=== PATIENT | female | born 1990 | race Caucasian/White ===

== ENCOUNTER 2023-02-01 20:38 | Outpatient (OUT) | payer BC, SELFPAY ==
[2023-02-04 11:09] LABS: Age Gdln ACOG Testing Note (.); HPV Aptima Negative (Negative); IGP, Aptima HPV, rfx 16/18,45 Note (.)
== END 2023-02-01 20:39 | disposition home or self-care (01) ==
PROVIDERS: PCP Obstetrics & Gynecology; Visit Provider Obstetrics & Gynecology
DX: Z12.4 Encounter for screening for malignant neoplasm of cervix (principal)
CPT/HCPCS: 87624; G0145

== ENCOUNTER 2023-02-11 11:25 | Outpatient (OUT) | payer BC, SELFPAY ==
[2023-02-15 19:07] LABS: AFP Value 79.6 ng/mL (.); Gest. Age on Collection Date 19.4 weeks (.); Gestat. Age Based On Ultrasound (.); Insulin Dep Diabetes No (.); Maternal Age At EDD 32.6 yr (.); OSBR Risk 1 IN 1590 (.); Results Report (.)
== END 2023-02-11 11:26 | disposition home or self-care (01) ==
LOC: LAB 11:27
PROVIDERS: PCP Obstetrics & Gynecology; Visit Provider Obstetrics & Gynecology
DX: Z34.92 Encounter for supervision of normal pregnancy, unspecified, second trimester (principal)
CPT/HCPCS: 36415; 82105

== ENCOUNTER 2023-02-15 07:03 | Outpatient (OUT) | payer BC, SELFPAY ==
--- NOTE | 2023-02-15 07:06 | US_ITS ---
[address] [address] Patient Name: MELONY SOTO MRN: [id number] date: 1990 Sex: F Assigned Patient Location: US Current Patient Location: LAB Accession/Order Number: [id number] Exam Date: 02/15/2023 07:08 Report Date: 02/15/2023 20:42 At the request of: FANNIE SON Procedure: US OB cervical length EXAMINATION: US OB anatomy, US OB cervical length HISTORY: ANATOMY COMPARISON: No relevant comparison available. TECHNIQUE: Transabdominal sonographic examination was performed for obstetrical and evaluation. FINDINGS: Number: 1 Heart Rate: 150.8 bpm H.B. /min Amniotic Fluid Volume: Subjectively normal position: Cephalic presentation, longitudinal lie Placental Location: Anterior, grade 0. Placental edge is 7.3 cm from the internal os Cervix Length: 4.8 cm, closed Normally visualized anatomy: Cerebellum, choroid plexus, cisterna magna, lateral cerebral ventricles, orbits, midline falx, hard palate, four-chamber heart, RVOT, LVOT, stomach, kidneys, bladder, umbilical cord insertion into the abdomen, three-vessel cord, cervical spine, thoracic spine, lumbar spine, sacral spine, right upper extremity, left upper extremity, right lower extremity, left lower extremity Suboptimally visualized anatomy: None Abnormal anatomy: Limited by 2.7 mm choroid plexus cyst BIOMETRY: BPD: 4.9 cm 20 weeks 5 days , 80% HC: 18.0 cm 20 weeks 3 days, 63% AC: 15.5 cm 20 weeks 5 days, 68% FL: 3.4 cm 20 weeks 4 days, 65% EFW:367.1 grams; 13 ounces, 81% FL/AC: 21.8 FL/BPD: 69.2 HC/AC: 1.2 GESTATIONAL AGE: Age by EDC: 20 weeks 0 days DORI by EDC: 07/05/2023 Age by current US: 20 weeks 4 days DORI by current US: 07/01/2023 IMPRESSION: 2.8 mm choroid plexus cyst, nonspecific Otherwise normal anatomy scan *Reference: [employer] Practice Guideline for the performance of Obstetric Ultrasound Examinations, May 22, 2007. Electronically authenticated by: SARITA TERRAZAS Date: 02/15/2023 20:42
--- NOTE | 2023-02-15 07:06 | US_ITS ---
[address] [address] Patient Name: MELONY SOTO MRN: [id number] date: 1990 Sex: F Assigned Patient Location: US Current Patient Location: LAB Accession/Order Number: [id number] Exam Date: 02/15/2023 07:08 Report Date: 02/15/2023 20:42 At the request of: FANNIE SON Procedure: US OB anatomy EXAMINATION: US OB anatomy, US OB cervical length HISTORY: ANATOMY COMPARISON: No relevant comparison available. TECHNIQUE: Transabdominal sonographic examination was performed for obstetrical and evaluation. FINDINGS: Number: 1 Heart Rate: 150.8 bpm H.B. /min Amniotic Fluid Volume: Subjectively normal position: Cephalic presentation, longitudinal lie Placental Location: Anterior, grade 0. Placental edge is 7.3 cm from the internal os Cervix Length: 4.8 cm, closed Normally visualized anatomy: Cerebellum, choroid plexus, cisterna magna, lateral cerebral ventricles, orbits, midline falx, hard palate, four-chamber heart, RVOT, LVOT, stomach, kidneys, bladder, umbilical cord insertion into the abdomen, three-vessel cord, cervical spine, thoracic spine, lumbar spine, sacral spine, right upper extremity, left upper extremity, right lower extremity, left lower extremity Suboptimally visualized anatomy: None Abnormal anatomy: Limited by 2.7 mm choroid plexus cyst BIOMETRY: BPD: 4.9 cm 20 weeks 5 days , 80% HC: 18.0 cm 20 weeks 3 days, 63% AC: 15.5 cm 20 weeks 5 days, 68% FL: 3.4 cm 20 weeks 4 days, 65% EFW:367.1 grams; 13 ounces, 81% FL/AC: 21.8 FL/BPD: 69.2 HC/AC: 1.2 GESTATIONAL AGE: Age by EDC: 20 weeks 0 days DORI by EDC: 07/05/2023 Age by current US: 20 weeks 4 days DORI by current US: 07/01/2023 IMPRESSION: 2.8 mm choroid plexus cyst, nonspecific Otherwise normal anatomy scan *Reference: [employer] Practice Guideline for the performance of Obstetric Ultrasound Examinations, May 22, 2007. Electronically authenticated by: SARITA TERRAZAS Date: 02/15/2023 20:42
== END 2023-02-15 07:04 | disposition home or self-care (01) ==
LOC: US 07:03
PROVIDERS: PCP Obstetrics & Gynecology; Visit Provider Obstetrics & Gynecology
DX: Z34.92 Encounter for supervision of normal pregnancy, unspecified, second trimester (principal)
CPT/HCPCS: 76805; 76817

== ENCOUNTER 2023-03-19 07:26 | Outpatient (OUT) | payer BC, SELFPAY ==
[2023-03-19 08:42] LABS: Basophils Absolute Auto 0.1 10^3/uL (0.0-0.1); Basophils Percent Auto 0.6 % (0.2-2.0); Eosinophils Absolute Auto 0.2 10^3/uL (0.0-0.7); Eosinophils Percent Auto 1.8 % (0.9-7.0); Hematocrit 33.9 % (36.0-48.0); Hemoglobin 11.4 g/dL (12.0-16.0); Immature Granulocytes Abs Auto 0.22 10^3/uL (0.00-0.03); Lymphocytes Absolute Auto 1.5 10^3/uL (1.2-3.8); Lymphocytes Percent Auto 13.7 % (20.5-60.0); Mean Corpuscular HGB Conc 33.6 g/dL (29.9-35.2); Mean Corpuscular Hemoglobin 30.3 pg (26.7-34.0); Mean Corpuscular Volume 90.2 fL (81.0-99.0); Monocytes Absolute Auto 0.8 10^3/uL (0.3-0.8); Monocytes Percent Auto 6.8 % (1.7-12.0); Neutrophils Absolute Auto 8.3 10^3/uL (1.4-6.5); Neutrophils Percent Auto 75.1 % (43.0-75.0); Platelet Count 270 10^3/uL (150-450); Red Blood Count 3.76 10^6/uL (4.20-5.40); Red Cell Distribution Width 13.7 % (11.0-15.0); White Blood Count 11.1 10^3/uL (4.0-11.0)
[2023-03-19 09:24] LABS: Glucose 1 Hour 106 mg/dL
== END 2023-03-19 07:27 | disposition home or self-care (01) ==
LOC: LAB 07:26
PROVIDERS: PCP Obstetrics & Gynecology; Visit Provider Obstetrics & Gynecology
DX: Z13.1 Encounter for screening for diabetes mellitus (principal)
CPT/HCPCS: 36415; 82950; 85025

== ENCOUNTER 2023-03-22 12:51 | Outpatient (OUT) | payer BC, SELFPAY ==
--- NOTE | 2023-03-22 12:53 | US_ITS ---
[address] [address] Patient Name: MELONY SOTO MRN: [id number] date: 1990 Sex: F Assigned Patient Location: US Current Patient Location: Accession/Order Number: [id number] Exam Date: 03/22/2023 13:00 Report Date: 03/22/2023 17:49 At the request of: FANNIE SON Procedure: US OB follow up EXAMINATION: US OB follow up HISTORY: Follow-up ultrasound of anatomy Z36.2 COMPARISON: 02/15/2023 FINDINGS: Jensen intrauterine gestation position: Cephalic presentation, longitudinal lie Heart rate: 152 bpm Identified is a choroid plexus cyst, decreased in size from the prior exam now measuring 1.8 x 2.6 x 2.0 mm US/US OB follow up IMPRESSION: Decrease in size of a choroid plexus cyst Electronically authenticated by: SARITA TERRAZAS Date: 03/22/2023 17:49
== END 2023-03-22 12:52 | disposition home or self-care (01) ==
LOC: US 12:51
PROVIDERS: PCP Obstetrics & Gynecology; Visit Provider Obstetrics & Gynecology
DX: Z36.2 Encounter for other antenatal screening follow-up (principal)
CPT/HCPCS: 76816

== ENCOUNTER 2023-05-03 06:59 | Outpatient (OUT) | payer BC, SELFPAY ==
[2023-05-03 07:29] LABS: Basophils Absolute Auto 0.1 10^3/uL (0.0-0.1); Basophils Percent Auto 0.9 % (0.2-2.0); Eosinophils Absolute Auto 0.2 10^3/uL (0.0-0.7); Eosinophils Percent Auto 2.1 % (0.9-7.0); Hematocrit 34.8 % (36.0-48.0); Hemoglobin 11.6 g/dL (12.0-16.0); Immature Granulocytes Abs Auto 0.21 10^3/uL (0.00-0.03); Immature Granulocytes Pct Auto 1.8 % (0.0-0.5); Lymphocytes Absolute Auto 2.1 10^3/uL (1.2-3.8); Lymphocytes Percent Auto 18.2 % (20.5-60.0); Mean Corpuscular HGB Conc 33.3 g/dL (29.9-35.2); Mean Corpuscular Hemoglobin 29.5 pg (26.7-34.0); Mean Corpuscular Volume 88.5 fL (81.0-99.0); Monocytes Absolute Auto 0.9 10^3/uL (0.3-0.8); Platelet Count 240 10^3/uL (150-450); Red Blood Count 3.93 10^6/uL (4.20-5.40); Red Cell Distribution Width 12.3 % (11.0-15.0); White Blood Count 11.6 10^3/uL (4.0-11.0)
[2023-05-03 08:27] LABS: Estimated Average Glucose 108 mg/dL; Glycohemoglobin A1C 5.4 % (4.5-6.2)
[2023-05-03 08:40] LABS: Alanine Aminotransferase 29 U/L (14-59); Albumin Globulin Ratio 0.7; Albumin Level 2.6 g/dL (3.4-5.0); Alkaline Phosphatase 121 U/L (46-116); Anion Gap 10.6; Aspartate Amino Transferase 23 U/L (15-37); Bilirubin Total 0.3 mg/dL (0.2-1.0); Calcium 8.9 mg/dL (8.5-10.1); Carbon Dioxide 24.2 mmol/L (21.0-32.0); Chloride 103 mmol/L (98-107); Chol HDL Ratio 4.3; Cholesterol 255 mg/dL (<=200); Estimated GFR (African America >60 (>=60); Estimated GFR (Non-African Ame >60 (>=60); Glucose 75 mg/dL (74-106); HDL Cholesterol 59 mg/dL (40-60); Potassium 3.8 mmol/L (3.5-5.1); Sodium 134 mmol/L (136-145); Total Protein 6.6 g/dL (6.4-8.2); Triglycerides 151 mg/dL (<=150); VLDL CHOLESTEROL 30.2 mg/dL
== END 2023-05-03 07:00 | disposition home or self-care (01) ==
LOC: LAB 06:59
PROVIDERS: PCP Obstetrics & Gynecology; Visit Provider Obstetrics & Gynecology
DX: Z00.00 Encounter for general adult medical examination without abnormal findings (principal)
CPT/HCPCS: 36415; 80053; 80061; 83036; 84443; 85025

== ENCOUNTER 2023-05-03 09:52 | Outpatient (OUT) | payer BC, SELFPAY ==
--- NOTE | 2023-05-03 10:38 | US_ITS ---
[address] [address] Patient Name: MELONY SOTO MRN: [id number] date: 1990 Sex: F Assigned Patient Location: Current Patient Location: Accession/Order Number: [id number] Exam Date: 05/03/2023 10:40 Report Date: 05/04/2023 07:15 At the request of: FANNIE SON Procedure: US OB growth EXAMINATION: US OB growth HISTORY: size inconsistent with dates O26.849 COMPARISON: No relevant comparison available. FINDINGS: Heart Rate: 135.0 bpm Amniotic Fluid Volume: 15.8 cm Number: 1.0 Position: Breech presentation, longitudinal lie Maximum Vertical Pocket: 4.1 cm cm 4.9 cm cm 2.5 cm cm 4.2 cm cm BIOMETRY: BPD: 8.0 cm cm; 32 weeks 2 days; 84% HC: 29.6 cmcm; 32 weeks 5 days, 72% AC: 27.3 cm cm; 31 weeks 3 days, 68% FL: 5.8 cm cm; 30 weeks 3 days; 27.8 % % EFW: 1743.3 grams, 3 lbs. 13 oz., 59% FL/AC: 21.3 FL/BPD: 72.3 HC/AC: 1.1 GESTATIONAL AGE: Age by EDC: 30 weeks 5 days DORI by EDC: 07/07/2023 Age by US: 31 weeks 5 days DORI by US: 06/30/2023 US/US OB growth IMPRESSION: Normal interval growth Electronically authenticated by: SARITA TERRAZAS Date: 05/04/2023 07:15
== END 2023-05-03 09:53 | disposition home or self-care (01) ==
LOC: US 09:52
PROVIDERS: PCP Obstetrics & Gynecology; Visit Provider Obstetrics & Gynecology
DX: Z00.00 Encounter for general adult medical examination without abnormal findings (principal); O26.843 Uterine size-date discrepancy, third trimester; Z3A.30 30 weeks gestation of pregnancy; O32.1XX0 Maternal care for breech presentation, not applicable or unspecified
CPT/HCPCS: 36415; 76816; 80053; 80061; 83036; 84443; 85025

== ENCOUNTER 2023-05-31 12:40 | Outpatient (OUT) | payer BC, SELFPAY ==
[2023-05-31 12:55] VITALS: BP 133/86; PULSE 72
[2023-05-31 13:12] VITALS: BP 132/80; PULSE 75
[2023-05-31 13:25] VITALS: BP 123/77; PULSE 76
[2023-05-31 13:40] VITALS: BP 126/80; PULSE 72
[2023-05-31 13:56] VITALS: BP 151/87; PULSE 76
--- NOTE | 2023-05-31 14:11 | US_ITS ---
[address] [address] Patient Name: MELONY SOTO MRN: [id number] date: 1990 Sex: F Assigned Patient Location: [facility] Current Patient Location: Accession/Order Number: [id number] Exam Date: 05/31/2023 14:30 Report Date: 05/31/2023 18:47 At the request of: FANNIE SON Procedure: US OB BPP w non-stress EXAMINATION: US OB BPP w non-stress HISTORY: ELEVATED BP COMPARISON: No relevant comparison available. TECHNIQUE: Ultrasound biophysical profile was performed in the radiology department. FINDINGS: BREATHING MOVEMENTS: 2.0 GROSS BODY MOVEMENTS: 2.0 TONE: 2.0 QUALITATIVE AMNIOTIC FLUID VOLUME: 2.0 PRESENTATION: CEPHALIC HEART RATE: 155.2 bpm H.B./min AMNIOTIC FLUID VOLUME: 16.5 cm cm GESTATIONAL AGE: 34 weeks 5 days CONCLUSION: Total biophysical profile score: 8.0 Electronically authenticated by: SARITA TERRAZAS Date: 05/31/2023 18:47
[2023-05-31] MEDS: BETAMETHASONE ACE/BETAMETHASONE SOD PHOS 30 MG/5 ML 12 MG IM (14:39)
--- NOTE | 2023-05-31 14:47 | PC.NURSE ---
1245: CHIRAG ARORA AT PRESENT. hAD EPISDODE AT WORK OF FIREWORK TYPE SPOTSS WHEN STANDING UP AND TOOK BP AND IT WAS ELEVATED. CALLED THE DOCTOR AND HE INSTRUCTED HER TO COME TO [facility] FOR EVALUATION
== END 2023-05-31 15:05 | disposition home or self-care (01) ==
LOC: FBCO 12:41 → FBC 12:42
PROVIDERS: PCP Obstetrics & Gynecology; Visit Provider Obstetrics & Gynecology
DX: O16.3 Unspecified maternal hypertension, third trimester (principal); Z3A.34 34 weeks gestation of pregnancy
CPT/HCPCS: 76818; 96372; J0702

== ENCOUNTER 2023-06-01 15:05 | Observation (INO) | payer BC, SELFPAY ==
[2023-06-01] MEDS: BETAMETHASONE ACE/BETAMETHASONE SOD PHOS 30 MG/5 ML 12 MG IM (15:22)
[2023-06-01 15:35] VITALS: BP 124/75; PULSE 77
--- NOTE | 2023-06-01 16:01 | US_ITS ---
[address] [address] Patient Name: MELONY SOTO MRN: [id number] date: 1990 Sex: F Assigned Patient Location: [facility] Current Patient Location: [facility] Accession/Order Number: [id number] Exam Date: 06/01/2023 16:02 Report Date: 06/01/2023 18:36 At the request of: FANNIE SON Procedure: US OB BPP w non-stress EXAM: US OB BPP w non-stress, US OB umbilical artery HISTORY: decreased mvmt, high bp COMPARISON: 05/31/2023. 05/03/2023. 03/22/2023. TECHNIQUE: Biophysical profile score. FINDINGS: breathing movements: 2 Gross body movements: 2 tone: 2 Quantitative amniotic fluid volume: 2 Amniotic fluid index measures 13.6 cm. cardiac rate of 134 bpm. Doppler measurements umbilical artery: Antegrade flow within the umbilical arteries. Proximal umbilical artery PI 0.91 Proximal umbilical artery RI 0.60 Mid umbilical artery PI 0.77 Mid umbilical artery RI 0.53 Distal umbilical artery PI 0.79 Distal umbilical artery RI 0.53 Band within the anterior aspect of the amniotic fluid, raising possibility of amniotic band syndrome. US/US OB BPP w non-stress IMPRESSION: Biophysical profile score of 8/8 Antegrade flow within the umbilical arteries. Linear echogenic structure within the anterior aspect of the amniotic fluid raising possibility of amniotic band syndrome. Electronically authenticated by: MARK TOBAR Date: 06/01/2023 18:36
--- NOTE | 2023-06-01 16:01 | US_ITS ---
[address] [address] Patient Name: MELONY SOTO MRN: [id number] date: 1990 Sex: F Assigned Patient Location: [facility] Current Patient Location: [facility] Accession/Order Number: [id number] Exam Date: 06/01/2023 16:02 Report Date: 06/01/2023 18:36 At the request of: FANNIE SON Procedure: US OB umbilical artery EXAM: US OB BPP w non-stress, US OB umbilical artery HISTORY: decreased mvmt, high bp COMPARISON: 05/31/2023. 05/03/2023. 03/22/2023. TECHNIQUE: Biophysical profile score. FINDINGS: breathing movements: 2 Gross body movements: 2 tone: 2 Quantitative amniotic fluid volume: 2 Amniotic fluid index measures 13.6 cm. cardiac rate of 134 bpm. Doppler measurements umbilical artery: Antegrade flow within the umbilical arteries. Proximal umbilical artery PI 0.91 Proximal umbilical artery RI 0.60 Mid umbilical artery PI 0.77 Mid umbilical artery RI 0.53 Distal umbilical artery PI 0.79 Distal umbilical artery RI 0.53 Band within the anterior aspect of the amniotic fluid, raising possibility of amniotic band syndrome. US/US OB umbilical artery IMPRESSION: Biophysical profile score of 8/8 Antegrade flow within the umbilical arteries. Linear echogenic structure within the anterior aspect of the amniotic fluid raising possibility of amniotic band syndrome. Electronically authenticated by: MARK TOBAR Date: 06/01/2023 18:36
[2023-06-01 16:09] VITALS: BP 113/65; PULSE 85
[2023-06-01 16:32] LABS: Basophils Absolute Auto 0.1 10^3/uL (0.0-0.1); Basophils Percent Auto 0.2 % (0.2-2.0); Hematocrit 32.7 % (36.0-48.0); Hemoglobin 10.8 g/dL (12.0-16.0); Immature Granulocytes Abs Auto 0.42 10^3/uL (0.00-0.03); Immature Granulocytes Pct Auto 1.9 % (0.0-0.5); Lymphocytes Absolute Auto 2.3 10^3/uL (1.2-3.8); Lymphocytes Percent Auto 10.4 % (20.5-60.0); Mean Corpuscular Volume 87.7 fL (81.0-99.0); Mean Platelet Volume 11.6 fL (9.5-13.5); Monocytes Absolute Auto 1.7 10^3/uL (0.3-0.8); Monocytes Percent Auto 7.6 % (1.7-12.0); Neutrophils Absolute Auto 17.3 10^3/uL (1.4-6.5); Neutrophils Percent Auto 79.9 % (43.0-75.0); Platelet Count 292 10^3/uL (150-450); Red Blood Count 3.73 10^6/uL (4.20-5.40); Red Cell Distribution Width 12.6 % (11.0-15.0); White Blood Count 21.7 10^3/uL (4.0-11.0)
[2023-06-01 16:34] LABS: Alanine Aminotransferase 20 U/L (14-59); Aspartate Amino Transferase 20 U/L (15-37); Lactate Dehydrogenase 201 U/L (81-234)
[2023-06-01 16:44] LABS: Partial Thromboplastin Time 23.9 sec (22.3-36.2); Prothrombin Time 9.5 sec (9.0-11.6)
[2023-06-01 16:47] LABS: INR <0.93
[2023-06-01 17:44] VITALS: BP 130/71; PULSE 73
[2023-06-01 18:15] VITALS: BP 122/69; PULSE 78
[2023-06-01 18:44] VITALS: BP 135/79; PULSE 86
[2023-06-01 19:14] VITALS: BP 131/75; PULSE 91; RESP 18
== END 2023-06-01 19:30 | disposition home or self-care (01) ==
LOC: FBC 17:06
PROVIDERS: Admitting Provider Obstetrics & Gynecology; PCP Obstetrics & Gynecology; Visit Provider Obstetrics & Gynecology
DX: O36.8190 Decreased fetal movements, unspecified trimester, not applicable or unspecified (principal); O16.9 Unspecified maternal hypertension, unspecified trimester; Z3A.00 Weeks of gestation of pregnancy not specified
CPT/HCPCS: 36415; 59025; 76818; 76820; 83615; 84450; 84460; 84550; 85025; 85610; 85730; 96372; G0378; G0379; J0702

== ENCOUNTER 2023-06-02 10:29 | Observation (INO) | payer BC, SELFPAY ==
[2023-06-02 09:10] VITALS: BP 134/82; PULSE 89
[2023-06-02 09:27] LABS: Hematocrit 34.2 % (36.0-48.0); Hemoglobin 10.9 g/dL (12.0-16.0); Mean Corpuscular HGB Conc 31.9 g/dL (29.9-35.2); Mean Corpuscular Hemoglobin 28.6 pg (26.7-34.0); Mean Corpuscular Volume 89.8 fL (81.0-99.0); Mean Platelet Volume 11.4 fL (9.5-13.5); Platelet Count 308 10^3/uL (150-450); Red Blood Count 3.81 10^6/uL (4.20-5.40); Red Cell Distribution Width 12.6 % (11.0-15.0); White Blood Count 21.6 10^3/uL (4.0-11.0)
[2023-06-02 09:51] LABS: Band Neutrophils Absolute 0.4 10^3/uL (0.0-0.3); Lymphocytes Absolute Manual 2.59 10^3/uL (1.20-3.80); Monocytes Absolute Manual 1.08 10^3/uL (0.30-0.80); Segmented Neut Absolute Manual 17.49 10^3/uL (1.4-6.5)
[2023-06-02 10:20] VITALS: TEMP 36.8
[2023-06-02 10:21] VITALS: BP 119/81; PULSE 117
--- NOTE | 2023-06-02 10:57 | PC.NURSE ---
IV started per Guera CARSON and NS started at 125 ml/hr per infusion pump. Denies needs. States had been short of breath on occasion- thought it was from being .
[2023-06-02] MEDS: CEFAZOLIN SODIUM/DEXTROSE,ISO 2 GM/50 ML PIGGYBACK IV (11:06)
[2023-06-02] MEDS: 0.9 % SODIUM CHLORIDE 1,000 ML 125 ML IV (11:08)
[2023-06-02] MEDS: AZITHROMYCIN 500 MG in 0.9 % SODIUM CHLORIDE 250 ML 250 MG IV (12:02)
--- NOTE | 2023-06-02 14:52 | PC.NURSE ---
1330: resting quietly and denies needs
--- NOTE | 2023-06-02 16:07 | PC.NURSE ---
1545: Resting quietly without complaints- plan of care updated and patient denies needs
[2023-06-02 17:50] VITALS: BP 131/74; PULSE 74
[2023-06-02] MEDS: CEFAZOLIN SODIUM/DEXTROSE,ISO 1 GM/50 ML IV.SOLN IV (18:41)
--- NOTE | 2023-06-02 19:45 | PC.NURSE ---
1840: states has been thirsty today, not super hungry. Denies needs/complaints. Ancef 1 gm hung IVPB- and discharge instructions reviewed and prescriptions given with instructions. 1919;saline lock discontinued and patient discharged home ambulatory undelivered. Color pink, lungs clear bilaterally, abdomen soft to palpation. Denies visual changes, spots or blurred vision.
== END 2023-06-02 19:25 | disposition home or self-care (01) ==
LOC: FBCO 10:30 → FBC 10:30
PROVIDERS: Admitting Provider Obstetrics & Gynecology; PCP Obstetrics & Gynecology; Visit Provider Obstetrics & Gynecology
DX: O16.9 Unspecified maternal hypertension, unspecified trimester (principal); Z3A.00 Weeks of gestation of pregnancy not specified
CPT/HCPCS: 36415; 59025; 85027; 96374; 96375; 96376; G0378; G0379; J0456

== ENCOUNTER 2023-06-03 07:23 | Outpatient (OUT) | payer BC, SELFPAY ==
--- NOTE | 2023-06-03 | US_ITS ---
[address] [address] Patient Name: MELONY SOTO MRN: [id number] date: 1990 Sex: F Assigned Patient Location: [facility] Current Patient Location: Accession/Order Number: [id number] Exam Date: 06/03/2023 13:02 Report Date: 06/03/2023 15:08 At the request of: FANNIE SON Procedure: US OB BPP w non-stress EXAMINATION: US OB BPP w non-stress HISTORY: ELEVATED BLOOD PRESSURE COMPARISON: Ultrasound OB biophysical 06/01/2023 TECHNIQUE: Ultrasound biophysical profile was performed in the radiology department. BREATHING MOVEMENTS: 2.0 GROSS BODY MOVEMENTS: 2.0 TONE: 2.0 QUALITATIVE AMNIOTIC FLUID VOLUME: 2.0 PRESENTATION: CEPHALIC HEART RATE: 126.8 bpm bpm. AMNIOTIC FLUID VOLUME: 12.1 cm GESTATIONAL AGE: 35 weeks 1 days CONCLUSION: 1. Total biophysical profile score 8.0. 2. Again seen is a linear echogenic structure along the anterior margin which could represent an amniotic band. Electronically authenticated by: MOUSTAPHA YOO Date: 06/03/2023 15:08
[2023-06-03 13:33] LABS: Hematocrit 31.2 % (36.0-48.0); Hemoglobin 10.1 g/dL (12.0-16.0); Mean Corpuscular HGB Conc 32.4 g/dL (29.9-35.2); Mean Corpuscular Hemoglobin 29.2 pg (26.7-34.0); Mean Corpuscular Volume 90.2 fL (81.0-99.0); Mean Platelet Volume 11.2 fL (9.5-13.5); Platelet Count 250 10^3/uL (150-450); Red Blood Count 3.46 10^6/uL (4.20-5.40); Red Cell Distribution Width 12.9 % (11.0-15.0); White Blood Count 15.6 10^3/uL (4.0-11.0)
[2023-06-03 13:43] VITALS: BP 124/74; PULSE 74
[2023-06-03 13:47] LABS: Band Neutrophils Absolute 1.2 10^3/uL (0.0-0.3); Lymphocytes Absolute Manual 2.18 10^3/uL (1.20-3.80); Monocytes Absolute Manual 1.56 10^3/uL (0.30-0.80)
== END 2023-06-03 14:15 | disposition home or self-care (01) ==
LOC: FBCO 07:24 → FBC 13:01
PROVIDERS: PCP Obstetrics & Gynecology; Visit Provider Obstetrics & Gynecology
DX: O16.3 Unspecified maternal hypertension, third trimester (principal); Z3A.35 35 weeks gestation of pregnancy
CPT/HCPCS: 36415; 76818; 85027

== ENCOUNTER 2023-06-06 07:48 | Outpatient (OUT) | payer BC, SELFPAY ==
--- NOTE | 2023-06-06 | US_ITS ---
[address] [address] Patient Name: MELONY SOTO MRN: [id number] date: 1990 Sex: F Assigned Patient Location: [facility] Current Patient Location: Accession/Order Number: [id number] Exam Date: 06/06/2023 10:10 Report Date: 06/06/2023 16:35 At the request of: FANNIE SON Procedure: US OB BPP w non-stress EXAMINATION: US OB BPP w non-stress HISTORY: ELEVATED BLOOD PRESSURE IN THIRD TRIMESTER COMPARISON: No relevant comparison available. TECHNIQUE: Ultrasound biophysical profile was performed in the radiology department. non-reactive stress testing was performed by nursing staff in the birthing center. FINDINGS: BREATHING MOVEMENTS: 2.0 GROSS BODY MOVEMENTS: 2.0 TONE: 2.0 QUALITATIVE AMNIOTIC FLUID VOLUME: 2.0 PRESENTATION: CEPHALIC HEART RATE: 140.6 bpm H.B./min AMNIOTIC FLUID VOLUME: 12.3 cm cm GESTATIONAL AGE: 35 weeks 4 days Other: Echogenic linear band still visualized, amniotic band suspected CONCLUSION: Total biophysical profile score: 8.0 Electronically authenticated by: SARITA TERRAZAS Date: 06/06/2023 16:35
[2023-06-06 10:45] VITALS: BP 136/85; PULSE 75
== END 2023-06-06 11:10 | disposition home or self-care (01) ==
LOC: US 07:50 → FBC 10:02
PROVIDERS: Visit Provider Obstetrics & Gynecology
DX: O16.3 Unspecified maternal hypertension, third trimester (principal); Z3A.35 35 weeks gestation of pregnancy
CPT/HCPCS: 76818

== ENCOUNTER 2023-06-07 20:27 | Outpatient (REF) | payer BC, SELFPAY | END 2023-06-07 20:28 | disposition home or self-care (01) | LOC: LAB 20:27 | PROVIDERS: Visit Provider Obstetrics & Gynecology | DX: Z34.93 Encounter for supervision of normal pregnancy, unspecified, third trimester (principal) | CPT/HCPCS: 87081 ==

== ENCOUNTER 2023-06-09 07:07 | Outpatient (OUT) | payer BC, SELFPAY ==
--- NOTE | 2023-06-09 10:29 | PC.NURSE ---
arrives to [facility] for Scheduled NST, to private room d/t census. Karissa monitor iniated. Pt reports +FM, fetus very active. Denies ctx, bleeding or LOF.
== END 2023-06-09 10:45 ==
LOC: FBCO 07:08 → FBC 10:07
PROVIDERS: Visit Provider Obstetrics & Gynecology
DX: O16.9 Unspecified maternal hypertension, unspecified trimester (principal); Z3A.00 Weeks of gestation of pregnancy not specified
CPT/HCPCS: 59025

== ENCOUNTER 2023-06-11 22:53 | Inpatient (IN) | payer BC, SELFPAY ==
[2023-06-11 22:53] VITALS: RESP 20
[2023-06-11 23:08] VITALS: BP 181/109; PULSE 93
[2023-06-11 23:10] VITALS: BP 138/92; PULSE 88
[2023-06-12] VITALS (28 sets, daily range): BP systolic 117–140; BP diastolic 59–92; PULSE 71–100; RESP 16–18; TEMP 36.8–37.3
[2023-06-12] LABS: Amnisure POSITIVE (NEGATIVE)
[2023-06-12 00:04] LABS: Bilirubin Urine NEGATIVE (NEGATIVE); Blood Urine TRACE-I (NEGATIVE); Clarity Urine CLEAR (CLEAR); Color Urine LT. YELLOW (YELLOW); Glucose Urine UA NEGATIVE (NEGATIVE); Ketones Urine NEGATIVE (NEGATIVE); Leukocyte Esterase Urine NEGATIVE (NEGATIVE); Nitrite Urine NEGATIVE (NEGATIVE); Protein Urine TRACE mg/dL (NEG/TRACE); Specific Gravity Urine <=1.005 (1.005-1.025); Urobilinogen Urine 0.2 EU/dL (0.2-1.0)
[2023-06-12 00:05] LABS: Urine Microscopic Indicated NO
[2023-06-12 00:23] LABS: Hematocrit 34.1 % (36.0-48.0); Hemoglobin 11.2 g/dL (12.0-16.0); Mean Corpuscular HGB Conc 32.8 g/dL (29.9-35.2); Mean Corpuscular Hemoglobin 28.7 pg (26.7-34.0); Mean Corpuscular Volume 87.4 fL (81.0-99.0); Mean Platelet Volume 11.8 fL (9.5-13.5); Platelet Count 269 10^3/uL (150-450); Red Cell Distribution Width 12.9 % (11.0-15.0); White Blood Count 16.9 10^3/uL (4.0-11.0)
[2023-06-12 00:37] LABS: Amphetamine Screen Urine NEGATIVE (NEGATIVE); Barbiturates Screen Urine NEGATIVE (NEGATIVE); Benzodiazepines Screen Urine NEGATIVE (NEGATIVE); Buprenorphine Screen Urine NEGATIVE (NEGATIVE); Cannabinoid Screen Urine NEGATIVE (NEGATIVE); Cocaine Screen Urine NEGATIVE (NEGATIVE); Methadone Screen Urine NEGATIVE (NEGATIVE); Methamphetamines Screen Urine NEGATIVE (NEGATIVE); Opiate Screen Urine NEGATIVE (NEGATIVE); Oxycodone Screen Urine NEGATIVE (NEGATIVE); Phencyclidine Screen Urine NEGATIVE (NEGATIVE); Tricyclic Antidepressant Urine NEGATIVE (NEGATIVE)
--- NOTE | 2023-06-12 07:11 | W.PC.ACHO ---
Registration Status: ADM IN Primary Language: Finnish Preferred Language: Finnish Active Medications Generic Name Dose Route Start Last Admin Trade Name Lulú PRN Reason Stop Dose Admin Carboprost Tromethamine 250 mcg 06/12/23 00:10 Carboprost Tromethamine 250 Mcg/Ml 1 Ml Vial IM 06/14/23 00:10 Q15M PRN Bleeding Sodium Chloride 1,000 mls @ 125 mls/hr 06/12/23 00:15 Sodium Chloride 0.9% 1,000 Ml IV .Q8H BELEN Methylergonovine Maleate 0.2 mg 06/12/23 00:10 Methylergonovine Maleate 0.2 Mg/Ml Ampule IM 06/14/23 00:10 ONCE PRN Uterine Contractility/Contract Methylergonovine Maleate 0.2 mg 06/12/23 00:10 Methylergonovine Maleate 0.2 Mg Tablet PO 06/14/23 00:10 Q4H PRN Uterine Contractility/Contract Misoprostol 600 mcg 06/12/23 00:10 Misoprostol 100 Mcg Tablet PO 06/14/23 00:10 ONCE PRN Uterine Bleeding Misoprostol 800 mcg 06/12/23 00:10 Misoprostol 100 Mcg Tablet SL 06/14/23 00:10 ONCE PRN Uterine Bleeding Misoprostol 1,000 mcg 06/12/23 00:10 Misoprostol 100 Mcg Tablet MN 06/14/23 00:10 ONCE PRN Uterine Bleeding Ondansetron HCl 4 mg 06/12/23 00:10 Ondansetron Pf 4 Mg/2 Ml Vial IV Q6H PRN Nausea And Vomiting Ondansetron HCl 4 mg 06/12/23 00:10 Ondansetron 4 Mg Rapdis Tablet SL Q6H PRN Nausea And Vomiting Oxytocin 10 unit 06/12/23 00:10 Oxytocin 10 Unit/Ml Vial IM 06/14/23 00:10 ONCE PRN Labor Pain Diet Category Date Time Status Clear Liquid Diet Diet 06/12/23 00:12 Active Consults Category Date Time Status Consult to Anesthesiology Routine Cons 06/12/23 Ordered IV Insertion/Site Date of IV Line Insertion [22g 06/12/23 right Wrist] IV Insertion Time [22g right 00:30 Wrist] Neurology Patient orientation (short person,place,time,situation list) Respiratory Oxygen Delivery Method Room Air
[2023-06-12] MEDS: OXYTOCIN/0.9 % SODIUM CHLORIDE 10 UNITS/500 ML PLAST..BAG 6 UNIT IV (10:33)
[2023-06-12] MEDS: 0.9 % SODIUM CHLORIDE 1,000 ML 125 ML IV ×2 (10:33→19:02)
[2023-06-12] MEDS: AMPICILLIN SODIUM 2,000 MG in 0.9 % SODIUM CHLORIDE 100 ML 200 MG IV (11:06)
[2023-06-12] MEDS: AMPICILLIN SODIUM 1,000 MG in 0.9 % SODIUM CHLORIDE 50 ML 100 MG IV ×3 (14:53→22:56)
[2023-06-12] MEDS: ROPIVACAINE HCL/PF 400 MG/200 ML PREMIX 6 MG EPIDURAL (23:28)
[2023-06-12] MEDS: FENTANYL CITRATE/PF 100 MCG/2 ML VIAL EPIDURAL ×2 (23:28→23:29)
[2023-06-12] MEDS: 0.9 % SODIUM CHLORIDE 1,000 ML 1000 ML IV (23:28)
[2023-06-13] VITALS (24 sets, daily range): BP systolic 105–140; BP diastolic 59–85; PULSE 73–106; RESP 16–18; TEMP 36.8–37.1
[2023-06-13] MEDS: 0.9 % SODIUM CHLORIDE 1,000 ML 125 ML IV (02:22)
--- NOTE | 2023-06-13 04:25 | PM.OBPRCVD ---
Procedure Intrapartal events: None Induction method: none Delivery augmentation: pitocin Delivery monitor: external FHT and external uterine Route of delivery: Episiotomy Description: left mediolateral Laceration description: perineal - 2nd degree Delivery repair: Vicryl Estimated blood loss (mL): 300 Anesthesia type: Epidural Disposition: floor Infant Delivery date: 06/13/23 Gender: male presentation: vertex Placental delivery description: Spontaneous cord description: 3 Vessels
[2023-06-13] MEDS: IBUPROFEN 600 MG TABLET PO ×3 (07:44→20:57)
[2023-06-13] MEDS: BENZOCAINE/MENTHOL 85 GRAM SPRAY BOTTLE 1 APPLIC TOPICAL (07:44)
[2023-06-13] MEDS: GLYCERIN/WITCH HAZEL PADS 1 PAD TOPICAL (07:45)
--- NOTE | 2023-06-13 07:56 | W.PC.ACHO ---
Registration Status: ADM IN Primary Language: [place] Preferred Language: [place] Active Medications Generic Name Dose Route Start Last Admin Trade Name Freq PRN Reason Stop Dose Admin Acetaminophen 650 mg 06/13/23 04:26 Acetaminophen 325 Mg Tablet PO Q6H PRN Mild Pain Al Hydroxide/Mg Hydroxide 2,400 mg 06/13/23 04:26 Magnesium Hydroxide 2,400 Mg/10 Ml Oral.Susp PO Q6H PRN Dyspepsia Benzocaine/Menthol 1 applic 06/13/23 04:26 06/13/23 07:44 Benzocaine/Menthol 85 Gram [place] Bottle TOPICAL 1 applic Q2H PRN Administration Pain Carboprost Tromethamine 250 mcg 06/12/23 00:10 Carboprost Tromethamine 250 Mcg/Ml 1 Ml Vial IM 06/14/23 00:10 Q15M PRN Bleeding Diphtheria/Pertussis/Tetanus Vacc 0.5 ml 06/15/23 09:00 Adacel Diph,Pertuss(Acell),Tet Vac/Pf 0.5 Ml Adult Syringe IM 06/15/23 09:01 .ONCE ONE Docusate Sodium 100 mg 06/14/23 09:00 Docusate Sodium 100 Mg Capsule PO BID BELEN Sodium Chloride 1,000 mls @ 125 mls/hr 06/12/23 00:15 06/13/23 02:22 Sodium Chloride 0.9% 1,000 Ml IV 125 mls/hr .Q8H BELEN Administration Oxytocin 20 unit/ Sodium 1,002 mls @ 125 mls/hr 06/13/23 04:30 06/13/23 04:07 Chloride IV 06/13/23 12:29 125 mls/hr Q8H BELEN Administration Ibuprofen 600 mg 06/13/23 04:26 06/13/23 07:44 Ibuprofen 600 Mg Tablet PO 600 mg Q6H PRN Administration Moderate Pain Lidocaine 5 ml 06/12/23 10:19 Lidocaine Hcl 2% Pf 100 Mg/5 Ml Vial INJ 06/13/23 10:21 Q1H PRN Epidural Measles/Mumps/Rubella Vaccine Live 0.5 ml 06/15/23 09:00 Measles,Mumps,Rubella Vacc/Pf 0.5 Ml Vial SQ 06/15/23 09:01 .ONCE ONE Methylergonovine Maleate 0.2 mg 06/12/23 00:10 Methylergonovine Maleate 0.2 Mg/Ml Ampule IM 06/14/23 00:10 ONCE PRN Uterine Contractility/Contract Methylergonovine Maleate 0.2 mg 06/12/23 00:10 Methylergonovine Maleate 0.2 Mg Tablet PO 06/14/23 00:10 Q4H PRN Uterine Contractility/Contract Misoprostol 600 mcg 06/12/23 00:10 Misoprostol 100 Mcg Tablet PO 06/14/23 00:10 ONCE PRN Uterine Bleeding Misoprostol 800 mcg 06/12/23 00:10 Misoprostol 100 Mcg Tablet SL 06/14/23 00:10 ONCE PRN Uterine Bleeding Misoprostol 1,000 mcg 06/12/23 00:10 Misoprostol 100 Mcg Tablet WI 06/14/23 00:10 ONCE PRN Uterine Bleeding Ondansetron HCl 4 mg 06/12/23 00:10 Ondansetron Pf 4 Mg/2 Ml Vial IV Q6H PRN Nausea And Vomiting Ondansetron HCl 4 mg 06/12/23 00:10 Ondansetron 4 Mg Rapdis Tablet SL Q6H PRN Nausea And Vomiting Oxytocin 10 unit 06/12/23 00:10 Oxytocin 10 Unit/Ml Vial IM 06/13/23 12:00 ONCE PRN Labor Pain Senna 17.2 mg 06/13/23 20:00 Sennosides 8.6 Mg Tablet PO QHS PRN Constipation Simethicone 80 mg 06/13/23 04:26 Simethicone 80 Mg Tab.Chew PO QID PRN Abdominal Distention Temazepam 15 mg 06/13/23 04:26 Temazepam 15 Mg Capsule PO QHS PRN Sleep Witch Celina/Glycerin 1 pad 06/13/23 04:26 06/13/23 07:45 Glycerin/Witch [place] Pads TOPICAL 1 pad Q2H PRN Administration Pain Diet Category Date Time Status Regular Consistency Diet Diet 06/13/23 04:26 Active Respiratory Oxygen Delivery Method Room Air
--- NOTE | 2023-06-13 12:31 | PC.NURSE ---
LC into room, Mom holding baby skin to skin,mouth over nipple, states he is not too interested . Discussed impact of Late 36+4 on and infant's ability to feed well. Discussed common behavior of LPI and parents role to maintain feeding every 2-3 hours, protect milk supply and wait for maturity for best feeding. Both verbalize understanding. Goal today is for maternal rest, skin to skin, and hand expression if baby not latching well.
[2023-06-14] VITALS (8 sets, daily range): BP systolic 100–113; BP diastolic 54–76; PULSE 75–90; RESP 14–18; TEMP 36.6–36.8
[2023-06-14] MEDS: IBUPROFEN 600 MG TABLET PO ×4 (04:07→23:54)
[2023-06-14 06:52] LABS: Basophils Absolute Auto 0.1 10^3/uL (0.0-0.1); Basophils Percent Auto 0.6 % (0.2-2.0); Eosinophils Absolute Auto 0.3 10^3/uL (0.0-0.7); Eosinophils Percent Auto 1.6 % (0.9-7.0); Hematocrit 27.3 % (36.0-48.0); Hemoglobin 8.7 g/dL (12.0-16.0); Immature Granulocytes Abs Auto 0.26 10^3/uL (0.00-0.03); Immature Granulocytes Pct Auto 1.5 % (0.0-0.5); Lymphocytes Percent Auto 17.3 % (20.5-60.0); Mean Corpuscular HGB Conc 31.9 g/dL (29.9-35.2); Mean Corpuscular Hemoglobin 28.4 pg (26.7-34.0); Mean Corpuscular Volume 89.2 fL (81.0-99.0); Mean Platelet Volume 11.1 fL (9.5-13.5); Monocytes Absolute Auto 1.3 10^3/uL (0.3-0.8); Monocytes Percent Auto 7.5 % (1.7-12.0); Neutrophils Absolute Auto 12.2 10^3/uL (1.4-6.5); Neutrophils Percent Auto 71.5 % (43.0-75.0); Platelet Count 207 10^3/uL (150-450); Red Blood Count 3.06 10^6/uL (4.20-5.40); Red Cell Distribution Width 13.3 % (11.0-15.0); White Blood Count 17.1 10^3/uL (4.0-11.0)
--- NOTE | 2023-06-14 07:21 | W.PC.ACHO ---
Registration Status: ADM IN Primary Language: Turkish Preferred Language: Turkish Active Medications Generic Name Dose Route Start Last Admin Trade Name Freq PRN Reason Stop Dose Admin Acetaminophen 650 mg 06/13/23 04:26 Acetaminophen 325 Mg Tablet PO Q6H PRN Mild Pain Al Hydroxide/Mg Hydroxide 2,400 mg 06/13/23 04:26 Magnesium Hydroxide 2,400 Mg/10 Ml Oral.Susp PO Q6H PRN Dyspepsia Benzocaine/Menthol 1 applic 06/13/23 04:26 06/13/23 07:44 Benzocaine/Menthol 85 Gram [place] Bottle TOPICAL 1 applic Q2H PRN Administration Pain Diphtheria/Pertussis/Tetanus Vacc 0.5 ml 06/15/23 09:00 Adacel Diph,Pertuss(Acell),Tet Vac/Pf 0.5 Ml Adult Syringe IM 06/15/23 09:01 .ONCE ONE Docusate Sodium 100 mg 06/14/23 09:00 Docusate Sodium 100 Mg Capsule PO BID BELEN Sodium Chloride 1,000 mls @ 125 mls/hr 06/12/23 00:15 06/13/23 02:22 Sodium Chloride 0.9% 1,000 Ml IV 125 mls/hr .Q8H BELEN Administration Ibuprofen 600 mg 06/13/23 04:26 06/14/23 04:07 Ibuprofen 600 Mg Tablet PO 600 mg Q6H PRN Administration Moderate Pain Measles/Mumps/Rubella Vaccine Live 0.5 ml 06/15/23 09:00 Measles,Mumps,Rubella Vacc/Pf 0.5 Ml Vial SQ 06/15/23 09:01 .ONCE ONE Ondansetron HCl 4 mg 06/12/23 00:10 Ondansetron Pf 4 Mg/2 Ml Vial IV Q6H PRN Nausea And Vomiting Ondansetron HCl 4 mg 06/12/23 00:10 Ondansetron 4 Mg Rapdis Tablet SL Q6H PRN Nausea And Vomiting Senna 17.2 mg 06/13/23 20:00 Sennosides 8.6 Mg Tablet PO QHS PRN Constipation Simethicone 80 mg 06/13/23 04:26 Simethicone 80 Mg Tab.Chew PO QID PRN Abdominal Distention Temazepam 15 mg 06/13/23 04:26 Temazepam 15 Mg Capsule PO QHS PRN Sleep Witch Celina/Glycerin 1 pad 06/13/23 04:26 06/13/23 07:45 Glycerin/Witch [place] Pads TOPICAL 1 pad Q2H PRN Administration Pain Respiratory Oxygen Delivery Method Room Air Oxygen Delivery Method Room Air Oxygen Delivery Method Room Air Oxygen Delivery Method Room Air Cardiology Heart Sounds Strong,Regular Heart Sounds Strong,Regular Bowels Bowel Pattern No Bowel Movement Bowel Pattern No Bowel Movement Renal Bladder Pattern Continent Bladder Pattern Continent
--- NOTE | 2023-06-14 08:01 | PM.OBPN ---
OB - PN: Subj Subjective Patient comments: no complaints and pain well controlled [place] status: doing well and well [place] feeding status: exclusively Exam Constitutional Vital Signs, click to edit/add: Last Vital Signs Temp 98 F 06/14/23 00:50 Pulse 75 06/14/23 00:49 Resp 14 06/14/23 00:50 BP 100/54 06/14/23 00:49 O2 Del Method Room Air 06/14/23 00:50 Documenting provider has reviewed patient's vital signs: yes Common normals: no apparent distress General appearance: cooperative, comfortable, well kempt and well developed HENMT Common normals: normocephalic Eye Common normals: EOMs intact bilaterally General eye: normal appearance of both eyes Neck & C-Spine Common normals: full ROM Lymph Lymphatic: no lymphadenopathy noted Chest Common normals: inspection of chest normal Respiratory Common normals: normal respiratory effort, no retractions and clear to auscultation bilaterally Cardio Common normals: regular rate, regular rhythm and no murmurs Rhythm: regular rhythm GI Common normals: Normal to inspection, nondistended, normoactive bowel sounds present, soft to palpation and non-tender Palpation: soft Common normals: no CVA tenderness Back & Pelvis Common normals: no CVA tenderness General back: CVA tenderness Extremity Common normals: normal to inspection Neuro Common normals: oriented x3 and moves all extremities Sensorium/orientation: awake, alert, oriented to person, oriented to place and oriented to time Psych Common normals: mental status grossly normal, thought process normal, cooperative and affect normal Attitude: calm Results Labs Labs: Short CBC 06/14/23 Range/Units 06:15 WBC 17.1 H (4.0-11.0) 10^3/uL Hgb 8.7 L (12.0-16.0) g/dL Hct 27.3 L (36.0-48.0) % Plt Count 207 (150-450) 10^3/uL OB - PN: A/P Plan - Vaginal Delivery Plan: routine care Time Spent with Patient Time: Total time spent is greater than 50% in coordination of care (as documented) at patient's floor/unit and/or counseling patient: Total time spent with greater than 50% in coordination of care (as documented) at patient's floor/unit and/or counseling patient: less than 15 minutes
[2023-06-14] MEDS: DOCUSATE SODIUM 100 MG CAPSULE PO ×2 (08:29→21:35)
--- NOTE | 2023-06-14 18:45 | PC.NURSE ---
Addendum entered by Estella Choe RN 06/14/23 19:51: Paperwork being filled out for pt.s breast pump. Original Note: Much assistance with , as well as hand expression. Railroader and pt. put pump together and pt. pumped bilateral breasts.
[2023-06-15] MEDS: IBUPROFEN 600 MG TABLET PO (07:45)
--- NOTE | 2023-06-15 08:06 | PM.OBPN ---
OB - PN: Subj Subjective Patient comments: no complaints and pain well controlled [place] status: doing well Exam Constitutional Vital Signs, click to edit/add: Last Vital Signs Temp 98.3 F 06/14/23 23:44 Pulse 77 06/14/23 23:44 Resp 18 06/14/23 23:44 BP 111/62 06/14/23 23:44 O2 Del Method Room Air 06/14/23 23:44 Documenting provider has reviewed patient's vital signs: yes Common normals: no apparent distress Respiratory Common normals: normal respiratory effort and clear to auscultation bilaterally GI Common normals: Normal to inspection, nondistended, normoactive bowel sounds present Common normals: no CVA tenderness Extremity Common normals: no calf tenderness OB - PN: A/P Plan - Vaginal Delivery day: 2 Plan: routine care, discharge home and follow up 6 weeks Time Spent with Patient Time: Total time spent is greater than 50% in coordination of care (as documented) at patient's floor/unit and/or counseling patient: Total time spent with greater than 50% in coordination of care (as documented) at patient's floor/unit and/or counseling patient: less than 15 minutes
[2023-06-15 08:21] VITALS: BP 123/72; PULSE 75
[2023-06-15 08:27] VITALS: RESP 18
[2023-06-15 08:37] VITALS: TEMP 37
--- NOTE | 2023-06-15 12:02 | PC.NURSE ---
TDAP and FLU VIS given
[2023-06-15] MEDS: ADACEL DIPH,PERTUSS(ACELL),TET VAC/PF 0.5 ML ADULT SYRINGE IM (12:57)
[2023-06-15] MEDS: FLU VACC QS 23-24(6MS UP)CEL/PF 60 MCG/0.5 ML SYRINGE IM (13:01)
== END 2023-06-15 14:30 | disposition home or self-care (01) | DRG 807 ==
PROVIDERS: Obstetrics & Gynecology; Admitting Provider Obstetrics & Gynecology; Visit Provider Obstetrics & Gynecology
DX: O70.1 Second degree perineal laceration during delivery (principal); Z37.0 Single live birth; Z3A.39 39 weeks gestation of pregnancy; Z79.82 Long term (current) use of aspirin
CPT/HCPCS: 36415; 51702; 59050; 59410; 80307; 81003; 84112; 85025; 85027; 86850; 86900; 86901; 88307; 90471; 90674; 90715; 96365; 96375; 96376; G0008; G0378

== ENCOUNTER 2023-06-16 08:06 | Outpatient (OUT) | payer BC, SELFPAY ==
--- NOTE | 2023-06-16 11:31 | PC.NURSE ---
Arrives for follow up with and 3 days old son. States is tired as baby nursed just about every hour Notes that nipples are red and tender today, no open area. Nipples are everted but short, breasts filling and more difficult to lars. Infant to breast with good positioning and latch technique, infant has difficulty latching and remaining latched. Discussed use of nipple shield for 36 week infant as a way to support latch, create seal and vacuum. Parents agreeable for use in short term. Nipple shield explained, demo of placement and latching. Mom able to return demo independently, baby latches on, remains latched and sustains suck with frequent swallows. Long discussion on LPI and as infant is 11%down in weight. Discussed need for easy milk , milk in which does not have to work hard for. Cup, syringe or slow paced bottle feeds after effort at the breast. Parents receptive, but want to only focus on breast feeding. Reviewed easy milk as a way to support and sustain breast feeding while giving baby volume/calories without expending more energy. Verbalized understanding of short term use of easy milk . to obtain breast pump from [employer] and pt to pump after feeds for supplementation. Parents are knowledgeable, and motivated to feed infant and protect milk supply. Will return 06/21/2023 for visit.
== END 2023-06-16 10:10 | disposition home or self-care (01) ==
LOC: FBCO 08:08
PROVIDERS: Visit Provider Obstetrics & Gynecology
DX: Z39.2 Encounter for routine postpartum follow-up (principal)

== ENCOUNTER 2023-06-21 08:43 | Outpatient (OUT) | payer BC, SELFPAY ==
--- NOTE | 2023-06-21 11:30 | PC.NURSE ---
Arrives for support. States things are going much better , baby is latching well and transferring milk with shield use, outputs have increased and weight gain above weight before 2 weeks of age. Discussed removing shield from feedings and how to do it. Start offering breast without shield, if no latch then use for latch and pulling nipple out then remove during feed and re latch baby to continue to feed. States has started doing same at intervals and infant willing. No further concerns at this time. Baby to breast with shield and audible swallowing noted, mom with heavy let down that infant controls well. Active nursing 9 min with release of latch, milk dribbles out of mouth and content. Parents handle baby well. and have no questions at this time. Aware of [facility]. Mom relates having difficulties with incontinence of urine and tailbone pain since delivery. Pain not improving with time and Motrin. Encouraged to call PCP,Dr Gardner for evaluation and possible therapy. Verbalized understanding.
== END 2023-06-21 11:39 | disposition home or self-care (01) ==
LOC: FBCO 08:44
PROVIDERS: Visit Provider Obstetrics & Gynecology
DX: Z39.1 Encounter for care and examination of lactating mother (principal)
CPT/HCPCS: G0463

== ENCOUNTER 2023-09-15 11:07 | Outpatient (OUT) | payer BC, SELFPAY ==
--- OUTSIDE RECORDS SUMMARY | 2023-09-15 11:13 | XMS_ITS | CCD ---
Author Name Unknown Address [address] [place] [address] Organization [facility] Care Team Providers Care Admissions Gate Attendant Name Role Phone ADELAIDA ., DR GRECO Admitting Unavailable ADELAIDA ., DR GRECO Attending Unavailable REQUEST, DR LOPEZ LISTED Primary Care Unavaila ble ADELAIDA ., DR GRECO Consulting Unavailable ZIEBER, DR MOUSTAPHA Pepper Consulting Unavailable SHO, TODD Admitting Unavailable SHO, TODD Attending Unavailable REQUEST, NONE LISTED Primary Care Unavaila ble SHO, TODD Consulting Unavailable SHO, TODD Admitting Unavailable SHO, TODD Attending Unavailable REQUEST, NONE LISTED Primary Care Unavaila ble SHO, TODD Consulting Unavailable MAURICIO, DR DONAHUE Admitting Unavailable MAURICIO, DR DONAHUE Attending Unavailable REQUEST, DR LOPEZ LISTED Primary Care Unavaila ble MAURICIO, DR DONAHUE Consulting Unavailable ADELAIDA ., DR GRECO Admitting Unavailable ADELAIDA ., DR GRECO Attending Unavailable REQUEST, DR LOPEZ LISTED Primary Care Unavaila ble ADELAIDA ., DR GRECO Consulting Unavailable ZIEBER, DR MOUSTAPHA Pepper Consulting Unavailable ADELAIDA ., DR GRECO Admitting Unavailable ADELAIDA ., DR GRECO Attending Unavailable REQUEST, DR LOPEZ LISTED Primary Care Unavaila ble ADELAIDA ., DR GRECO Consulting Unavailable ADELAIDA ., DR GRECO Admitting Unavailable ADELAIDA ., DR GRECO Attending Unavailable REQUEST, DR LOPEZ LISTED Primary Care Unavaila ble ADELAIDA ., DR GRECO Consulting Unavailable ADELAIDAFANNIE Attending Unavailable Problems Active Problems Problem Classification Problem Date Documented Da te Episodic/Chronic Menstrual disorders (5 sources) Irregular menstruation, unspecified; Translations: [IRREGULAR MENSTRUATION UNSPECIFIED] Onset: 01-08-2022 Chronic Other endocrine disorders (4 sources) Ovarian dysfunction, unspecified; Translations: [OVARIAN DYSFUNCTION UNSPECIFIED] Onset: 08-27-2022 Chronic Other and delivery including normal (5 sources) Encounter for supervision of other normal , first trimester; Translations: [Encounter for supervision of normal , unspecified, first trimester] Onset: 12-06-2022 Episodic Other screening for suspected conditions (not mental disorders or infectious disease) (1 source) Encounter for other screening for genetic and chromosomal anomalies; Translations: [ENC OTH SCR GENETIC CHROMOSM ANOMAL] Onset: 12-12-2022 Episodic Residual codes; unclassified (1 source) 9 weeks gestation of ; Translations: [9 WEEKS GESTATION OF ] Onset: 12-06-2022 Episodic Unclassified (3 sources) CONTACT W/AND (SUSP) EXPOS COVID-19; Translations: [CONTACT W/AND (SUSP) EXPOS COVID-19] Onset: 08-27-2022 Viral infection (1 source) COVID-19; Translations: [COVID-19] Onset: 08-21-2022 Past or Other Problems Problem Classification Problem Date Documented Date Episodic/Chronic Other female genital disorders (4 sources) Noninflammatory disorder of ovary, fallopian tube and broad ligament, unspecified; Translations: [OTH NONINFL D/O OVARY TUBE AND BRD LIG] Onset: 01-15-2022 Episodic Unclassified (1 source) CONTACT W/AND (SUSP) EXPOS COVID-19; Translations: [CONTACT W/AND (SUSP) EXPOS COVID-19] Onset: 08-24-2022 Results Test Name Value Interpretation Reference Range Facility HEP B SURFACE ANTIGEN SCREEN on 12-08-2022 HBsAg Screen Negative Normal Negative [facility] Comment on above: Performed By: #### H BSANS #### [facility] [address] [address] [address] Desmond Sow HEPATITIS C VIRUS AB W/ REFL EX QUANTon 12-08-2022 HCV AB Non-Reactive Normal Non Reactive [facility] Comment on above: Performed By: #### H CVPCRR #### [facility] [address] [address] [address] eDsmond Sow Interpretation: Comment Normal [facility] Comment on above: Result Comment: Not infected with HCV unless early or acute infection is suspected (which may be delayed in an immunocompromised individual), or other evidence exists to indicate HCV infection. Performed By: #### H CVPCRR #### [facility] [address] [address] [address] Desmond Sow HIV 1 AND 2 WITH REFLEXon HIV Screen 4th Generation wRfx Non-Reactive Normal Non Reactive [facility] Comment on above: Result Comment: HIV Negative HIV-1/HIV-2 antibodies and HIV-1 p24 antigen were NOT detected. There is no laboratory evidence of HIV infection. Performed By: #### H IV12 #### [facility] [address] [place] [address] Dr. Desmond Sow RPR QUANTon 12-08-2022 Rapid Plasma Reagin, Quant Non-Reactive Normal NonRea<1:1 [facility] Comment on above: Result Comment: Plea se Note: This test does not meet current guidelines for screening and diagnosis of syphilis. This test is intended for following treatment response in patients being treated for syphilis infection. To screen for syphilis infection, a reflex cascade that includes both RPR and a treponema-specific assay should be utilized, such as Treponema pallidum (Syphilis) Screening [place] (305719) or Rapid Plasma Reagin (RPR) Test With Reflex to Quantitative RPR and Confirmatory Treponema pallidum Antibodies ([id number]). Performed By: #### T SH #### [facility] [address] [place] [address] Dr. Desmond Sow RUBELLA AB IGGon 12-08-2022 Rubella Antibodies, IgG 1.18 index Normal Immune >0.99 [facility] Comment on above: Result Comment: Non- immune <0.90 Equivocal 0.90 - 0.99 Immune >0.99 Performed By: #### R UBIGG #### [facility] [address] [place] [address] Dr. Desmond Sow BOX TEST SENT OUTon 12-08-19 23 SENT TO REF LAB 12/07/2022 Normal [facility] Comment on above: Performed By: #### T SH #### [facility] [address] [place] [address] Dr. Desmond Sow CBC AUTO DIFFon 12-07-2022 BASO # 0.1 103/ul Normal 0.0-0.1 [facility] Comment on above: Performed By: #### T SH #### [facility] [address] [place] [address] Dr. Desmond Sow Basophils/100 WBC (Bld) 0.8 % Normal 0.2-2.0 [facility] Comment on above: Performed By: #### T SH #### [facility] [address] [place] [address] Dr. Desmond Sow EO # 0.3 103/ul Normal 0.0-0.7 [facility] Comment on above: Performed By: #### T SH #### [facility] [address] [place] [address] Dr. Desmond Sow Eosinophils/100 WBC (Bld) 2.8 % Normal 0.9-7.0 [facility] Comment on above: Performed By: #### T SH #### [facility] [address] [place] [address] Dr. Desmond Sow Erythrocyte distribution width (RBC) [Ratio] 14.5 % Normal 11.0-15.0 [facility] Comment on above: Performed By: #### T SH #### [facility] [address] [place] [address] Dr. Desmond Sow Hematocrit (Bld) [Volume fraction] 40.1 % Normal 36.0-48.0 [facility] Comment on above: Performed By: #### T SH #### [facility] [address] [place] [address] Dr. Desmond Sow Hemoglobin (Bld) [Mass/Vol] 13.1 g/dL Normal 12.0-16.0 [facility] Comment on above: Performed By: #### T SH #### [facility] [address] [place] [address] Dr. Desmond Sow IG # 0.05 10e3/ul Critically high 0.00-0.03 [facility] Comment on above: Performed By: #### T SH #### [facility] [address] [place] [address] Dr. Desmond Sow IG % 0.4 % Normal 0.0-0.5 [facility] Comment on above: Performed By: #### T SH #### [facility] [address] [place] [address] Dr. Desmond Sow LYMPH # 2.5 103/ul Normal 1.2-3.8 [facility] Comment on above: Performed By: #### T SH #### [facility] [address] [place] [address] Dr. Desmond Sow Lymphocytes/100 WBC (Bld) 21.9 % Normal 20.5-60.0 [facility] Comment on above: Performed By: #### T SH #### [facility] [address] [place] [address] Dr. Desmond Sow MANUAL DIFF REQ NO Normal [facility] Comment on above: Performed By: #### T SH #### [facility] [address] [place] [address] Dr. Desmond Sow MCH (RBC) [Entitic mass] 27.3 pg Normal 26.7-34.0 [facility] Comment on above: Performed By: #### T SH #### [facility] [address] [place] [address] Dr. Desmond Sow MCHC (RBC) [Mass/Vol] 32.7 g/dL Normal 29.9-35.2 [facility] Comment on above: Performed By: #### T SH #### [facility] [address] [place] [address] Dr. Desmond Sow MCV (RBC) [Entitic vol] 83.7 fL Normal 81.0-99.0 [facility] Comment on above: Performed By: #### T SH #### [facility] [address] [place] [address] Dr. Desmond Sow MONO # 0.8 103/ul Normal 0.3-0.8 [facility] Comment on above: Performed By: #### T SH #### [facility] [address] [place] [address] Dr. Desmond Sow Monocytes/100 WBC (Bld) 7.0 % Normal 1.7-12.0 [facility] Comment on above: Performed By: #### T SH #### [facility] [address] [address] [address] Desmond Sow NEUT # 7.5 103/ul Critically high 1.4-6.5 [facility] Comment on above: Performed By: #### T SH #### [facility] [address] [address] [address] Desmond Sow Neutrophils/100 WBC (Bld) 67.1 % Normal 43.0-75.0 [facility] Comment on above: Performed By: #### T SH #### [facility] [address] [place] [address] Dr. Desmond Sow Platelet mean volume (Bld) [Entitic vol] 9.9 fL Normal 9.5-13.5 [facility] Comment on above: Performed By: #### T SH #### [facility] [address] [place] [address] Dr. Desmond Sow PLT 249 103/ul Normal 150-450 [facility] Comment on above: Performed By: #### T SH #### [facility] [address] [place] [address] Dr. Desmond Sow RBC 4.79 106/ul Normal 4.20-5.40 [facility] Comment on above: Performed By: #### T SH #### [facility] [address] [place] [address] Dr. Desmond Sow WBC 11.2 103/ul Critically high 4.0-11.0 [facility] Comment on above: Performed By: #### T SH #### [facility] [address] [place] [address] Dr. Desmond Sow CULTURE URINEon 12-07-2022 CULTURE URINE Culture Observations : NO GROWTH. Normal [facility] Comment on above: Performed By: #### T SH #### [facility] [address] [place] [address] Dr. Desmond Sow GLYCOHEMOGLOBIN A1Con 2022 ADA RECOMMENDATION SEE BELOW Normal [facility] Comment on above: Result Comment: ADA RECOMMENDED LIMIT 4.0 - 6.0 ADA THERAPEUTIC TARGET < 7.0 ACTION SUGGESTED > 7.0 Performed By: #### T SH #### [facility] [address] [address] [address] Desmond Sow Glucose [Mass/Vol] 91 mg/dL Normal [facility] Comment on above: Performed By: #### T SH #### [facility] [address] [address] [address] Desmond Sow HbA1c (Bld) [Mass fraction] 4.8 % Normal 4.5-6.2 [facility] Comment on above: Performed By: #### T SH #### [facility] [address] [place] [address] Dr. Desmond Sow TSHon 12-07-2022 TSH 1.357 uIU/mL Normal 0.358-3.740 [facility] Comment on above: Performed By: #### T SH #### [facility] [address] [place] [address] Dr. Desmond Sow TYPE AND SCREENon 12-07-2022 TYPE AND SCREEN Negative Normal [facility] Comment on above: Performed By: #### T SH #### [facility] [address] [place] [address] Dr. Desmond Sow US PREG TVon 11-30-2022 US PREG TV EXAMINATION: US PREG TV HISTORY: Irregular periods COMPARISON: No relevant comparison available. FINDINGS: GESTATIONAL SAC: Present and normal appearing. YOLK SAC: Present and normal appearing. POLE: Present and normal appearing. CARDIAC: Present. UTERUS: Normal size and appearance. Small nabothian cysts within cervix. OVARIES: Right: Corpus lutein cyst. Left: Normal. CERVIX: 4.6 cm in length and closed. CUL-DE-SAC: Normal. OTHER: None. AGE BY LMP: 9 weeks 0 days DORI BY LMP: 07/05/2023 AGE BY US CRL: 9 weeks 0 days DORI BY US CRL: 07/05/2023 IMPRESSION: 1. Single live intrauterine . Electronically authenticated by: MOUSTAPHA YOO Date: 2022-11-30 15:53 Normal [facility] INSULINon 08-28-2022 Insulin 7.2 uIU/mL Normal 2.6-24.9 [facility] Comment on above: Performed By: #### T SH #### [facility] [address] [address] [address] Desmond Sow PROGESTERONEon 08-28-2022 Progesterone 19.1 ng/mL Normal [facility] Comment on above: Result Comment: Foll icular phase 0.1 - 0.9 Luteal phase 1.8 - 23.9 Ovulation phase 0.1 - 12.0 First trimester 11.0 - 44.3 Second trimester 25.4 - 83.3 Third trimester 58.7 - 214.0 Postmenopausal 0.0 - 0.1 Performed By: #### P INGRID #### [facility] [address] [place] [address] Dr. Desomnd Sow ASYMPTOMATIC COVID-19 ANTIGE Non 08-24-2022 EUA Statement SEE BELOW Normal [facility] Comment on above: Result Comment: This test has not been FDA cleared or approved, but has been authorized by the FDA under an Emergency Use Authorization (EUA) for use by authorized laboratories certified under CLIA that meet the requirements to perform moderate or high complexity testing. This test has been authorized only for the detection of proteins from SARS-CoV-2, not for any other viruses or pathogens. The emergency use of this test is authorized for the duration of the declaration that circumstances exist justifying the authorization of emergency use of in vitro diagnostic tests for detection and/or diagnosis of Covid-19 under section 564(b)(1) of the Act, 21 U.S.C. 360bbb-3(b)(1), unless the declaration is terminated or authorization is revoked sooner. Performed By: #### C VDAGA #### [facility] [address] [place] [address] Dr. Desmond Sow SARS-CoV-2 (COVID-19) RNA JES+probe Ql (Unsp spec) Negative Normal NEGATIVE [facility] Comment on above: Result Comment: Nega tive results are presumptive. They do not preclude infection and should not be used as the sole basis for treatment decisions. Additional confirmatory testing by a molecular method should be considered. Performed By: #### C VDAGA #### [facility] [address] [place] [address] Dr. Desmond Sow Covid-19 PCR ([facility])on 07-23 SARS-CoV-2 (COVID-19) RNA JES+probe Ql (Unsp spec) Detected Critically abnormal NOT DETECTED [facility] Comment on above: Result Comment: This test is not yet approved or cleared by the [place] FDA. When there are no FDA-approved or cleared tests available, and other criteria are met, FDA can make tests available under an emergency access mechanism called an Emergency Use Authorization (EUA). The EUA for this test is supported by the Liability Analyst of Health and Human Service's declaration that circumstances exist to justify the emergency use of in vitro diagnostics for the detection and/or diagnosis of the virus that causes COVID-19. This EUA will remain in effect for the duration of the COVID-19 declaration justifying emergency of IVDs, unless it is terminated or revoked by the FDA (after which the test may no longer be used). Performed By: #### C VDTBH #### [facility] [address] [place] [address] Dr. Desmond Sow INFLUENZA A AND B AGon 08-19 INFLUANEGH SEE BELOW Normal [facility] Comment on above: Result Comment: Nega tive for Flu A protein angiten. Infection due to Flu A cannot be ruled out. Flu A angiten in the sample may be below the detection limit of the test. Performed By: #### I NFLUAB #### [facility] [address] [place] [address] Dr. Desmond Sow INFLUBNEGH SEE BELOW Normal [facility] Comment on above: Result Comment: Nega tive for Flu B protein antigen. Infection due to Flu B cannot be ruled out. Flu B antigen in the sample may be below the detection limit of the test. Performed By: #### I NFLUAB #### [facility] [address] [place] [address] Dr. Desmond Sow INFLUENZA A AG Negative Normal NEGATIVE SEE COMMENT [facility] Comment on above: Performed By: #### I NFLUAB #### [facility] [address] [place] [address] Dr. Desmond Sow INFLUENZA B AG Negative Normal NEGATIVE SEE COMMENT [facility] Comment on above: Performed By: #### I NFLUAB #### [facility] [address] [place] [address] Dr. Desmond Sow PREG QUANT HCGon 01-15-2022 HCG QUANT <1 Normal [facility] Comment on above: Performed By: #### T #### [facility] [address] [place] [address] Dr. Desmond Sow HCG RANGE SEE BELOW Normal [facility] Comment on above: Result Comment: 5-50 0-1 WEEK 40-300 1-2 WEEKS 100-1,000 2-3 WEEKS 500-6,000 3-4 WEEKS 5,000-200,000 1-2 MONTHS 10,000-100,000 2-3 MONTHS 3,000-50,000 2ND TRIMESTER 1,000-50,000 3RD TRIMESTER Performed By: #### T SH #### [facility] [address] [place] [address] Dr. Desmond Sow XR HYSTEROSALPINGO EXPon XR HYSTEROSALPINGO EXP EXAMINATION: XR HYSTEROSALPINGO EXP HISTORY: Noninflammatory disorder of the female genital organs COMPARISON: No relevant comparison available. TECHNIQUE: Informed consent was obtained. A sterile vaginal speculum was introduced and, following cleansing of the cervix, a balloon-tipped catheter was inserted into the endometrial cavity. The procedure was then completed in the usual manner with water-soluble contrast. Standard level fluoroscopic mode of operation utilized. FINDINGS: FALLOPIAN TUBES: Patent fallopian tubes bilaterally. ENDOMETRIAL CAVITY: No appreciable scarring, filling defects, or dilatation. OTHER: Negative. IMPRESSION: 1. Normal hysterosalpingogram performed by Dr. Gardner. Electronically authenticated by: MOUSTAPHA YOO Date: 2022-01-15 12:39 Normal [facility] PROGESTERONEon 01-06-2022 Progesterone 21.4 ng/mL Normal [facility] Comment on above: Result Comment: Foll icular phase 0.1 - 0.9 Luteal phase 1.8 - 23.9 Ovulation phase 0.1 - 12.0 First trimester 11.0 - 44.3 Second trimester 25.4 - 83.3 Third trimester 58.7 - 214.0 Postmenopausal 0.0 - 0.1 Performed By: #### P INGRID #### [facility] [address] [address] [address] Desmond Sow Encounters Encounter Date Encounter Type Care Provider Facility Start: 07-25-2023 End: 07-25-2023 ambulatory FANNIE GARDNER Not Available Start: 12-07-2022 End: 12-08-[address] FANNIE GARDNER . Facility[facility] Start: 11-30-2022 End: 12-01-[address] FANNIE GARDNER . Facility[facility] Start: 08-27-2022 End: 08-28-[address] GODFREY MARTÍNEZ Facility:[facility] Start: 08-24-2022 End: 08-24-2022 ambulatory TODD BERKOWITZ Facility:[facility] Start: 08-19-2022 End: 08-19-2022 ambulatory TODD BERKOWITZ Facility:[facility] Start: 01-15-2022 End: 01-15-[address] FANNIE GARDNER . Facility:[facility] Start: 01-04-2022 End: 01-05-[address] FANNIE GARDNER . Facility[facility] Payers Date Payer Category Payer Unknown [id number] 2019 Unknown [id number] 1990 Unknown [id number] 2.16.84 [id number] 1990 Unknown [id number] 2.16.84 [id number] 1990 Unknown [id number] 2.16.84 [id number] 1990 Unknown [id number] 2.16.84 [id number] 1990 Unknown [id number] 2.16.84 [id number] 1990 Unknown [id number] 2.16.84 [id number] 1990 Unknown [id number] 2.16.84 [id number] 1990 Unknown [id number] Summary Purpose Family History No Family History Records FoundNo Family History Records Found Advance Directives No Advanced Directives Records FoundNo Advanced Directives Records Found Additional Source Comments INFORMATION SOURCE (unrecogn ized section and content) DATE CREATED AUTHOR 12/12/2022 [facility] DATE CREATED AUTHOR AUTHOR'S SYD ATMEGAN 07/26/2023 [facility] FOR RECORDS PERTAINING TO PATIENTS WHO ARE OR HAVE BEEN ENROLLED IN A CHEMICAL DEPENDENCY/SUBSTANCEABUSE PROGRAM, SOME INFORMATION MAY BE OMITTED. This clinical summary was aggregated from multiple sources. Caution should be exercised in using it in the provision of clinical care. This summary normalizes information from multiple sources, and as a consequence, information in this document may materially change the coding, format and clinical context of patient data. In addition, data may be omitted in some cases. CLINICAL DECISIONS SHOULD BE BASED ON THE PRIMARY CLINICAL RECORDS. [facility] [employer] provides no warranty or guarantee of the accuracy or completeness of information in this document.
--- NOTE | 2023-09-15 11:46 | US_ITS ---
Patient Name: MELONY SOTO MR#: [id number] : 1990 Exam Date: 09/15/2023 Ordering Doctor: DR Gibran Gardner . RADIOLOGY REPORT PROCEDURE: US BREAST RT LIMITED COMPARISON: None. INDICATIONS: Mastitis N61.0 TECHNIQUE: Breast ultrasound was performed, with evaluation focusing only on specific areas of concern. FINDINGS: Subcutaneous edema and some mild skin thickening is identified. Noted at the 8 o'clock position is a cystic area measuring 2.4 by 1.0 cm, this appears to be a dilated duct. No internal debris is observed. No evidence of an abscess. No hypervascularity RECOMMENDATIONS: Dilated duct without evidence of an abscess Subcutaneous edema and mild skin thickening supportive of the provided diagnosis of mastitis PLEASE NOTE: A NORMAL ULTRASOUND EXAMINATION DOES NOT EXCLUDE THE POSSIBILITY OF BREAST CANCER. A CLINICALLY SUSPICIOUS PALPABLE LUMP SHOULD BE BIOPSIED. Dictated by: Jimmy Alexander MD on 09/15/2023 at 12:04 Approved by: Jimmy Alexander MD on 09/15/2023 at 12:09
== END 2023-09-15 11:08 | disposition home or self-care (01) ==
LOC: US 11:07
PROVIDERS: Visit Provider Obstetrics & Gynecology
DX: N61.0 Mastitis without abscess (principal)
CPT/HCPCS: 76642

== ENCOUNTER 2024-02-14 20:10 | Outpatient (REF) | payer BC, SELFPAY ==
--- OUTSIDE RECORDS SUMMARY | 2024-02-14 20:14 | XMS_ITS | CCD ---
Author Organization [facility] CliniSyil Care Team Providers Care Plaster Lather Name Role Phone ADELAIDA ., DR GRECO Admitting Unavailable ADELAIDA ., DR GRECO Attending Unavailable REQUEST, DR LOPEZ LISTED Primary Care Unavaila ble ADELAIDA ., DR GRECO Consulting Unavailable ZIEBER, DR MOUSTAPHA Pepper Consulting Unavailable SHO, TODD Admitting Unavailable SHO, TODD Attending Unavailable REQUEST, NONE LISTED Primary Care Unavaila ble SHO, TODD Consulting Unavailable SHO, TODD Admitting Unavailable SHO, TODD Attending Unavailable REQUEST, DR LOPEZ LISTED Primary Care Unavaila ble SHO, TODD [...] ble ADELAIDA ., DR GRECO Consulting Unavailable JCARLOS, FAMILIA Attending Unavailable ADELAIDA, FANNIE Attending Unavailable Problems Active Problems Problem Classification [...] fallopian tube and broad ligament, unspecified; Translations: [OT NONINFL D/O OVARY TUBE AND BRD LIG] Onset: 01-15-2022 Episodic Unclassified (1 source) CONTACT W/AND (SUSP) EXPOS COVID-19; Translations: [CONTACT W/AND (SUSP) EXPOS COVID-19] Onset: 08-24-2022 Results Test Name Value Interpretation Reference Range Facility HEP B SURFACE ANTIGEN SCREEN on 12-08-2022 HBsAg Screen Negative Normal Negative [facility] Comment on above: Performed By: #### H BSANS #### [facility] [address] [address] [address] Desmond Sow HEPATITIS C VIRUS AB W/ REFL EX QUANTon 12-08-2022 HCV AB Non-Reactive Normal Non Reactive [facility] Comment on above: Performed By: #### H CVPCRR #### [facility] [address] [address] [address] Desmond Sow Interpretation: Comment Normal [facility] Comment on above: Result Comment: Not infected with HCV unless early or acute infection is suspected (which may be delayed in an immunocompromised individual), or other evidence exists to indicate HCV infection. Performed By: #### H CVPCRR #### [facility] [address] [address] [address] Desmond Sow HIV 1 AND 2 WITH REFLEXon HIV Screen 4th Generation wRfx Non-Reactive Normal Non Reactive [facility] Comment on above: Result Comment: HIV Negative HIV-1/HIV-2 antibodies and HIV-1 p24 antigen were NOT detected. There is no laboratory evidence of HIV infection. Performed By: #### H IV12 #### [facility] [address] [place] [address] Dr. Desmond Sow RPR QUANTon 12-08-2022 Rapid Plasma Reagin, Quant Non-Reactive Normal NonRea<1:1 [facility] Comment on above: Result Comment: Plea se Note: This test does not meet current guidelines for screening and diagnosis of syphilis. This test is intended for following treatment response in patients being treated for syphilis infection. To screen for syphilis infection, a reflex cascade that includes both RPR and a treponema-specific assay should be utilized, such as Treponema pallidum (Syphilis) Screening [place] (728870) or Rapid Plasma Reagin (RPR) Test With Reflex to Quantitative RPR and Confirmatory Treponema pallidum Antibodies (080084). Performed By: #### T SH #### [facility] [address] [place] [address] Dr. Desmond Sow RUBELLA AB IGGon 12-08-2022 Rubella Antibodies, IgG 1.18 index Normal Immune >0.[address] [facility] Comment on above: Result Comment: Non- immune <0.90 Equivocal 0.90 - 0.99 Immune >0.99 Performed By: #### R UBIGG #### [facility] [address] [place] [address] Dr. Desmond Sow BOX TEST SENT OUTon 12-08-19 23 SENT TO REF LAB 12/07/2022 Normal [facility] Comment on above: Performed By: #### T SH #### [facility] [address] [place] [address] Dr. Desmond Sow CBC AUTO DIFFon 12-07-2022 BASO # 0.1 103/ul Normal 0.0-0.1 [facility] Comment on above: Performed By: #### T SH #### [facility] [address] [address] [address] Desmond Sow Basophils/100 WBC (Bld) 0.8 % Normal 0.2-2.0 [facility] Comment on above: Performed By: #### T SH #### [facility] [address] [address] [address] Desmond Sow EO # 0.3 103/ul Normal 0.0-0.7 [facility] Comment on above: Performed By: #### T SH #### [facility] [address] [place] [address] Dr. Desmond Sow Eosinophils/100 WBC (Bld) 2.8 % Normal 0.9-7.0 [facility] Comment on above: Performed By: #### T SH #### [facility] [address] [place] [address] Dr. Desmond Sow Erythrocyte distribution width (RBC) [Ratio] 14.5 % Normal 11.0-15.0 [facility] Comment on above: Performed By: #### T SH #### [facility] [address] [place] [address] Dr. Desmond Sow Hematocrit (Bld) [Volume fraction] 40.1 % Normal 36.0-48.0 [facility] Comment on above: Performed By: #### T SH #### [facility] [address] [place] [address] Dr. Desmond Sow Hemoglobin (Bld) [Mass/Vol] 13.1 g/dL Normal 12.0-16.0 [facility] Comment on above: Performed By: #### T SH #### [facility] [address] [place] [address] Dr. Desmond Sow IG # 0.05 10e3/ul Critically high 0.00-0.03 [facility] Comment on above: Performed By: #### T SH #### [facility] [address] [place] [address] Dr. Desmond Sow IG % 0.4 % Normal 0.0-0.5 [facility] Comment on above: Performed By: #### T SH #### [facility] [address] [place] [address] Dr. Desmond Sow LYMPH # 2.5 103/ul Normal 1.2-3.8 [facility] Comment on above: Performed By: #### T SH #### [facility] [address] [place] [address] Dr. Desmond Sow Lymphocytes/100 WBC (Bld) 21.9 % Normal 20.5-60.0 [facility] Comment on above: Performed By: #### T SH #### [facility] [address] [place] [address] Dr. Desmond Sow MANUAL DIFF REQ NO Normal [facility] Comment on above: Performed By: #### T SH #### [facility] [address] [place] [address] Dr. Desmond Sow MCH (RBC) [Entitic mass] 27.3 pg Normal 26.7-34.0 [facility] Comment on above: Performed By: #### T SH #### [facility] [address] [place] [address] Dr. Desmond Sow MCHC (RBC) [Mass/Vol] 32.7 g/dL Normal 29.9-35.2 [facility] Comment on above: Performed By: #### T SH #### [facility] [address] [place] [address] Dr. Desmond Sow MCV (RBC) [Entitic vol] 83.7 fL Normal 81.0-99.0 [facility] Comment on above: Performed By: #### T SH #### [facility] [address] [place] [address] Dr. Desmond Sow MONO # 0.8 103/ul Normal 0.3-0.8 [facility] Comment on above: Performed By: #### T SH #### [facility] [address] [place] [address] Dr. Desmond Sow Monocytes/100 WBC (Bld) 7.0 % Normal 1.7-12.0 [facility] Comment on above: Performed By: #### T SH #### [facility] [address] [address] [address] Desmond Sow NEUT # 7.5 103/ul Critically high 1.4-6.5 [facility] Comment on above: Performed By: #### T SH #### [facility] [address] [address] [address] Desmond Sow Neutrophils/100 WBC (Bld) 67.1 % Normal 43.0-75.0 [facility] Comment on above: Performed By: #### T SH #### [facility] [address] [address] [address] Desmond Sow Platelet mean volume (Bld) [Entitic vol] 9.9 fL Normal 9.5-13.5 [facility] Comment on above: Performed By: #### T SH #### [facility] [address] [place] [address] Dr. Desmond Sow PLT 249 103/ul Normal 150-450 [facility] Comment on above: Performed By: #### T SH #### [facility] [address] [place] [address] Dr. Desmond Swo RBC 4.79 106/ul Normal 4.20-5.40 [facility] Comment on above: Performed By: #### T SH #### [facility] [address] [place] [address] Dr. Desmond Sow WBC 11.2 103/ul Critically high 4.0-11.0 [facility] Comment on above: Performed By: #### T SH #### [facility] [address] [place] [address] Dr. Desmond Sow CULTURE URINEon 12-07-2022 CULTURE URINE Culture Observations : NO GROWTH. Normal [facility] Comment on above: Performed By: #### T SH #### [facility] [address] [place] [address] Dr. Desmond Sow GLYCOHEMOGLOBIN A1Con 2022 ADA RECOMMENDATION SEE BELOW Normal [facility] Comment on above: Result Comment: ADA RECOMMENDED LIMIT 4.0 - 6.0 ADA THERAPEUTIC TARGET < 7.0 ACTION SUGGESTED > 7.0 Performed By: #### T SH #### [facility] [address] [address] [address] Desmond Sow Glucose [Mass/Vol] 91 mg/dL Normal [facility] Comment on above: Performed By: #### T SH #### [facility] [address] [address] [address] Desmond Sow HbA1c (Bld) [Mass fraction] 4.8 % Normal 4.5-6.2 [facility] Comment on above: Performed By: #### T SH #### [facility] [address] [address] [address] Desmond Sow TSHon 12-07-2022 TSH 1.357 uIU/mL Normal 0.358-3.740 [facility] Comment on above: Performed By: #### T SH #### [facility] [address] [address] [address] Desmond Sow TYPE AND SCREENon 12-07-2022 TYPE AND SCREEN Negative Normal [facility] Comment on above: Performed By: #### T SH #### [facility] [address] [address] [address] Desmond Sow US PREG TVon 11-30-2022 [...] by: MOUSTAPHA YOO Date: 2022-11-30 15:53 Normal [facility] INSULINon 08-28-2022 Insulin 7.2 uIU/mL Normal 2.6-24.9 [facility] Comment on above: Performed By: #### T SH #### [facility] [address] [address] [address] Desmond Sow PROGESTERONEon 08-28-2022 Progesterone 19.1 ng/mL Normal [facility] Comment on above: Result Comment: Foll icular phase 0.1 - 0.9 Luteal phase 1.8 - 23.9 Ovulation phase 0.1 - 12.0 First trimester 11.0 - 44.3 Second trimester 25.4 - 83.3 Third trimester 58.7 - 214.0 Postmenopausal 0.0 - 0.1 Performed By: #### P ROGES #### [facility] [address] [address] [address] Desmond Sow ASYMPTOMATIC COVID-19 ANTIGE Non 08-24-2022 EUA Statement SEE BELOW Normal [facility] Comment on above: Result Comment: This test [...] sooner. Performed By: #### C VDAGA #### [facility] [address] [address] [address] Desmond Sow SARS-CoV-2 (COVID-19) RNA JES+probe Ql (Unsp spec) Negative Normal NEGATIVE [facility] Comment on above: Result Comment: Nega tive results are presumptive. They do not preclude infection and should not be used as the sole basis for treatment decisions. Additional confirmatory testing by a molecular method should be considered. Performed By: #### C VDAGA #### [facility] [address] [address] [address] Desmond Sow [facility] SARS-CoV-2 (COVID-19) RNA JES+probe Ql (Unsp spec) Detected Critically abnormal NOT DETECTED [facility] Comment on above: Result Comment: This test is not yet approved or cleared by the [place] FDA. When there are no FDA-approved or cleared tests available, and other criteria are met, FDA can make tests available under an emergency access mechanism called an Emergency Use Authorization (EUA). The EUA for this test is supported by the [employer] of Health and Human Service's declaration that [...] longer be used). Performed By: #### C VDTB #### [facility] [address] [place] [address] Dr. Desmond Sow INFLUENZA A AND B [facility]on 07[facility] Normal [facility] Comment on above: Result Comment: Nega tive for Flu A protein angiten. Infection due to Flu A cannot be ruled out. Flu A angiten in the sample may be below the detection limit of the test. Performed By: #### I NFLUAB #### [facility] [address] [place] [address] Dr. Desmond Sow INFLUBNEG SEE BELOW Normal [facility] Comment on above: Result Comment: Nega tive for Flu B protein antigen. Infection due to Flu B cannot be ruled out. Flu B antigen in the sample may be below the detection limit of the test. Performed By: #### I NFLUAB #### [facility] [address] [place] [address] Dr. Desmond Sow INFLUENZA A AG Negative Normal NEGATIVE SEE COMMENT [facility] Comment on above: Performed By: #### I NFLUAB #### [facility] [address] [place] [address] Dr. Desmond Sow INFLUENZA B AG Negative Normal NEGATIVE SEE COMMENT [facility] Comment on above: Performed By: #### I NFLUAB #### [facility] [address] [address] [address] Desmond Sow PREG QUANT HCGon 01-15-2022 HCG QUANT <1 Normal [facility] Comment on above: Performed By: #### T #### [facility] [address] [address] [address] Desmond Sow HCG RANGE SEE BELOW Normal [facility] Comment on above: Result Comment: 5-50 0-1 WEEK 40-300 1-2 WEEKS 100-1,000 2-3 WEEKS 500-6,000 3-4 WEEKS 5,000-200,000 1-2 MONTHS 10,000-100,000 2-3 MONTHS 3,000-50,000 2ND TRIMESTER 1,000-50,000 3RD TRIMESTER Performed By: #### T SH #### [facility] [address] [place] [address] Dr. Desmond Sow XR HYSTEROSALPINGO EXPon XR [...] MOUSTAPHA YOO Date: 2022-01-15 12:39 Normal [facility] PROGESTERONEon 01-06-2022 Progesterone 21.4 ng/mL Normal [facility] Comment on above: Result Comment: Foll icular phase 0.1 - 0.9 Luteal phase 1.8 - 23.9 Ovulation phase 0.1 - 12.0 First trimester 11.0 - 44.3 Second trimester 25.4 - 83.3 Third trimester 58.7 - 214.0 Postmenopausal 0.0 - 0.1 Performed By: #### P INGRID #### [facility] [address] [address] [address] Desmond Sow Encounters Encounter Date Encounter Type Care Provider Facility Start: 09-15-2023 End: 09-15-2023 ambulatory FAMILIA GARBER Not Available Start: 07-25-2023 End: 07-25-2023 ambulatory FANNIE GARDNER Not Available Start: 12-07-2022 End: 12-08-[address] FANNIE GARDNER . Facility: Start: 11-30-2022 End: 12-01-[address] FANNIE GARDNER . Facility:[facility] Start: 08-27-2022 End: 08-28-[address] GODFREY MARTÍNEZ Facility:[facility] Start: 08-24-2022 End: 08-24-2022 ambulatory TODD BERKOWITZ Facility:[facility] Start: 08-19-2022 End: 08-19-2022 ambulatory TODD BERKOWITZ Facility:[facility] Start: 01-15-2022 End: 01-15-[address] FANNIE GARDNER . Facility:[facility] Start: 01-04-2022 End: 01-05-[address] FANNIE GARDNER . Facility:[facility] Payers Date Payer Category Payer Unknown [id number] 2019 Unknown [id number] 1990 Unknown [id number] 2.16.84 [id number] 1990 Unknown [id number] 2.16.84 [id number] 1990 Unknown [id number] 2.16.84 [id number] 1990 Unknown [id number] 2.16.84 [id number] 1990 Unknown [id number] 2.16.84 [id number] 1990 Unknown [id number] 2.16.84 [id number] 1990 Unknown [id number] 2.16.84 [id number] 1990 Unknown [id number] 2.16.84 [id number] 1990 Unknown [id number] Summary Purpose Family History No Family History Records FoundNo Family History Records Found Advance Directives No Advanced Directives Records FoundNo Advanced Directives Records Found Additional Source Comments INFORMATION SOURCE (unrecogn ized section and content) DATE CREATED AUTHOR 12/12/2022 [facility] DATE CREATED AUTHOR 'S SYD OLIVER 09/16/2023 [facility] FOR RECORDS PERTAINING TO PATIENTS WHO ARE [...] BE BASED ON THE PRIMARY CLINICAL RECORDS. [facility] [employer] provides no warranty or guarantee of the accuracy or completeness of information in this document.
== END 2024-02-14 20:11 | disposition home or self-care (01) ==
LOC: LAB 20:10
PROVIDERS: Visit Provider Obstetrics & Gynecology
DX: Z01.419 Encounter for gynecological examination (general) (routine) without abnormal findings (principal)
CPT/HCPCS: 87624; 88175

== ENCOUNTER 2024-02-28 17:34 | Emergency (ER) | payer BC, SELFPAY ==
[2024-02-28 17:53] VITALS: BP 134/88; PULSE 87; TEMP 37.1; O2SAT 100; BMI 32.9
--- NOTE | 2024-02-28 18:13 | XR_ITS ---
The [address] [address] Patient Name: MELONY SOTO MRN: [id number] date: 1990 Sex: F Assigned Patient Location: ER Current Patient Location: Accession/Order Number: [id number] Exam Date: 02/28/2024 18:08 Report Date: 02/28/2024 19:45 At the request of: EJ SOLORIO Procedure: XR finger RT min 2V EXAM: XR finger RT min 2V HISTORY: laceration COMPARISON: None. TECHNIQUE: PA, oblique, lateral right fifth finger. FINDINGS: Soft tissue injury at the level the proximal phalanx without opaque foreign body or glass. No fracture seen. Normal appearing joints. XR/XR finger RT min 2V IMPRESSION: Soft tissue injury without foreign body or fracture. Electronically authenticated by: MABEL DE DIOS Date: 02/28/2024 19:45
--- NOTE | 2024-02-28 18:28 | ED_ITS ---
HPI HPI - General Adult General Chief complaint: Wound/Laceration Stated complaint: LACERATION Time Seen by Provider: 02/28/24 17:57 Source: patient Mode of arrival: walk-in Limitations: no limitations History of Present Illness HPI narrative: Patient is a 33-year-old female who is right-hand dominant presents to the emergency department for a laceration to the right fifth finger that occurred at home just prior to arrival. She was washing dishes when a glass broke into large pieces and lacerated the dorsum of the right fifth finger. Sensation is intact and she is able to move the finger, bleeding is moderately well- controlled. She had no other associated injuries. Related Data Home Medications ?Medication ?Instructions ?Recorded ?Confirmed vit no.95-ferrous 1 tab PO DAILY 06/12/23 02/28/24 fumarate 28 mg-folic acid 800 mcg tablet ( Multivitamins) Allergies Allergy/AdvReac Type Severity Reaction Status Date / Time No Known Drug Allergies Allergy Verified 06/12/23 01:16 Opioid HPI Opioid Management Most Recent Opioid Data: Last Pain Scale 2 06/15/23 07:45 Ur Phencyclidine Scrn Negative (NEGATIVE) 06/12/23 00:00 Review of Systems ROS Constitutional Denies: fever or chills Ears, nose, mouth, and throat Denies: throat pain or nasal congestion Respiratory Denies: shortness of breath Gastrointestinal Denies: nausea or vomiting Musculoskeletal Denies: back pain, neck pain or extremity pain Integumentary/Breast Denies: rash Hematologic/Lymphatic Denies: easy bruising or easy bleeding [facility] Medical History (Updated 02/28/24 @ 18:39 by SHANTI Avelar) Scoliosis (and kyphoscoliosis), idiopathic ?M41.20 - Other idiopathic scoliosis, site unspecified (ICD-10) Exam Narrative Exam Narrative: Gen.: Awake, alert, in no distress Head: Normocephalic, atraumatic ENT: Moist mucous membranes Respiratory: No respiratory distress Extremities: Normal flexion and extension of the DIP and PIP joints of the right fifth finger with a 4 cm C-shaped skin flap laceration to the dorsum of the proximal phalanx. No tendon visualization or bony visualization. Minimal venous oozing Psych: Normal mood and affect Neuro: No focal neuro deficit Skin: Warm, dry, intact Constitutional Vital Signs, click to edit/add: Last Vital Signs Temp 98.7 F 02/28/24 17:53 Pulse 87 02/28/24 17:53 Resp 18 02/28/24 17:53 BP 134/88 02/28/24 17:53 Pulse Ox 100 02/28/24 17:53 O2 Del Method Room Air 02/28/24 17:53 Course Vital Signs Vital signs: Vital Signs Temperature 98.7 F 02/28/24 17:53 Pulse Rate 87 02/28/24 17:53 Respiratory Rate 18 02/28/24 17:53 Blood Pressure 134/88 02/28/24 17:53 Pulse Oximetry 100 02/28/24 17:53 Oxygen Delivery Method Room Air 02/28/24 17:53 Temperature 98.7 F 02/28/24 17:53 Pulse Rate 87 02/28/24 17:53 Respiratory Rate 18 02/28/24 17:53 Blood Pressure 134/88 02/28/24 17:53 Pulse Oximetry 100 02/28/24 17:53 Oxygen Delivery Method Room Air 02/28/24 17:53 Medical Decision Making MDM Narrative Medical decision making narrative: Laceration repaired without difficulty. Please see procedure note for details. Tetanus is up-to-date. Sutures removed in 7 to 10 days with PCP and return to the ER if symptoms change or worsen Laceration repair: Done under sterile conditions. The use of Shur-Clens prep the area. Local injection with lidocaine 1% was used, approximately 5 cc. The wound was irrigated copiously with normal saline. The wound was explored there was no evidence of foreign material. The laceration was approximated with 5-0 nylon. 9 simple interrupted sutures were placed. Patient tolerated the procedure well. The patient was neurovascularly intact post. the patient had bacitracin applied to the laceration and a dry sterile dressing was place. The patient will need to follow-up in the next 7-10 days for removal SUPERVISED APC VISIT, PHYSICIAN ATTESTATION: Based on the medical record the care appears appropriate. ? Medical Records Medical records reviewed: Yes I reviewed the patient's medical records Imaging Data XR finger: Attestation: I have reviewed the pertinent imaging results. Discharge Plan Discharge Stand Alone Forms: Portal Instructions Chief Complaint: Wound/Laceration Clinical Impression: Finger laceration Patient Disposition: Home, Self-Care Time of Disposition Decision: 18:38 Condition: Good Prescriptions / Home Meds: No Action PNV cmb#95-ferrous fumarate-FA [ Multivitamins] 28 mg iron- 800 mcg tablet 1 tab PO DAILY Print Language: Cypriot Instructions: Finger Laceration (ED) Additional Instructions: Sutures removed in 7-10 days Referrals: Physician,Non-Staff, MD [Primary Care Provider] - 1 week
[2024-02-28] MEDS: LIDOCAINE HCL 1% 100 MG/10 ML MDV INJ (18:40)
[2024-02-28] MEDS: BACITRACIN 0.9 GM PACKET 1 PACKET TOPICAL (18:40)
[2024-02-28] MEDS: OXYCODONE HCL/ACETAMINOPHEN 5MG/325MG 2 TAB PO (19:24)
== END 2024-02-28 19:23 | disposition home or self-care (01) ==
PROVIDERS: Emergency Provider Emergency Medicine
DX: S61.216A Laceration without foreign body of right little finger without damage to nail, initial encounter (principal); W25.XXXA Contact with sharp glass, initial encounter
CPT/HCPCS: 12002; 73140; 99283

== ENCOUNTER 2025-02-19 19:02 | Outpatient (REF) | payer OTHER, SELFPAY ==
--- OUTSIDE RECORDS SUMMARY | 2025-02-19 08:30 | XMS_ITS | Encounter Summary ---
Author Organization [facility] Address [address] [facility] [place] [address] Care Team Providers Care Hardboard Panel Printer Name Role Phone Unavailable Primary Care Provider Unavailabl e Reason for Visit * Reason Comments Well Women Visit Encounter Details Date Type Department Care Team (Late st Contact Info) Description 02/19/2025 8:30 AM EDT Office Visit [facility] [address] [facility] [place] [address] Gibran Gardner, DO [address] [place] [address] Well woman exam with routine gynecological exam; PCOS (polycystic ovarian syndrome); Uterine polyp; Hormone imbalance Social History Tobacco Use Types Packs/Day Years Used Date Smoking Tobacco: Never Assessed Comments Unknown Sex and Gender Information Value Date Recorded Sex Assigned at Not on file Legal Sex Female 11:19 PM EDT Gender Identity Not on file Sexual Orientation Not on file documented as of this encounter Last Filed Vital Signs Vital Sign Reading Time Taken Comments Blood Pressure 112/74 02/19/2025 8:49 AM EDT Pulse - - Temperature - - Respiratory Rate - - Oxygen Saturation - - Inhaled Oxygen Concentration - - Weight 98 kg (216 lb 1.9 oz) 02/19/2025 8:49 AM EDT Height - - Body Mass Index 33.85 07/25/2023 10:03 AM EST documented in this encounter Plan of Treatment Upcoming Encounters Date Type Department Care Team (Late Contact Info) Description 02/27/2025 3:00 PM EDT Consult [facility] BCP OB [address] [facility] [place] [id number] Gibran Gardner DO [address] [facility] [place] [address] Scheduled Orders Name Type Priority Associated Diagnoses Orde r Schedule Pap Smear Pathology and Cytology Routine Well woman exam with routine gynecological exam Ordered: 02/19/2025 HPV DNA probe, amplified Microbiology Routine Well woman exam with routine gynecological exam Ordered: 02/19/2025 hCG, quantitative, Lab Routine PCOS (polycystic ovarian syndrome) Ordered: 02/19/2025 TSH Lab Routine PCOS (polycystic ovarian syndrome) Ordered: 02/19/2025 T4, free Lab Routine PCOS (polycystic ovarian syndrome) Ordered: 02/19/2025 CBC and differential Lab Routine PCOS (polycystic ovarian syndrome) Ordered: 02/19/2025 Follicle stimulating hormone Lab Routine PCOS (polycystic ovarian syndrome) Ordered: 02/19/2025 Luteinizing hormone Lab Routine PCOS (polycystic ovarian syndrome) Ordered: 02/19/2025 Hemoglobin A1c Lab Routine Hormone imbalance Ordered: 02/19/2025 DHEA-sulfate Lab Routine PCOS (polycystic ovarian syndrome) Ordered: 02/19/2025 DHEA Lab Routine PCOS (polycystic ovarian syndrome) Expected: 02/19/2025 (Approximate), Expires: 02/19/2026 US Pelvis w/ TV Imaging Routine PCOS (polycystic ovarian syndrome) Uterine polyp Expected: 02/19/2025, Expires: 02/19/2026 Antimullerian hormone (AMH) Lab Routine Uterine polyp Hormone imbalance Expected: 02/19/2025 (Approximate), Expires: 02/19/2026 documented as of this encounter Goals Goal Patient Goal Type Associated Problems Recent Progress Patient-Stated? Author Reminders Care Plan OB Reminders No Open Scheduling, Background documented as of this encounter Visit Diagnoses Diagnosis Well woman exam with routine gynecological exam Routine gynecological examination PCOS (polycystic ovarian syndrome) Polycystic ovaries Uterine polyp Polyp of corpus uteri Hormone imbalance documented in this encounter Additional Health Concerns Active Problems Noted Date Diagnosed Date OB Reminders 02/23/2023 documented as of this encounter
--- OUTSIDE RECORDS SUMMARY | 2025-02-19 19:05 | XMS_ITS | Encounter Summary ---
Author Organization [facility] Address [address] [facility] [place] [address] Care Team Providers Care Wood Technologist Name Role Phone Unavailable Primary Care Provider Unavailabl e Encounter Details Date Type Department Care Team (Late st Contact Info) Description 02/01/2023 Abstract [facility] OB [address] [place] [address] Gibran Gardner, DO [facility] [place], [facility]11 Social History Tobacco Use Types Packs/Day Years Used Date Smoking Tobacco: Never Assessed Comments Yes Sex and Gender Information Value Date Recorded Sex Assigned at Not on file Legal Sex Female 11:19 PM EDT Gender Identity Not on file Sexual Orientation Not on file COVID-19 Exposure Response Date Recorded In the last 10 days, have yo u been in contact with someone who was confirmed or suspected to have Coronavirus/COVID-19? No / Unsure 01/25/2023 9:13 AM EDT documented as of this encounter Plan of Treatment Upcoming Encounters Date Type Department Care Team (Late st Contact Info) Description 02/27/2025 3:00 PM EDT Consult [facility] OB [address] [place] [address] Gibran Gardner, DO [facility] [place], [place] [id number] documented as of this encounter Visit Diagnoses Not on filedocumented in this encounter
--- OUTSIDE RECORDS SUMMARY | 2025-02-19 19:05 | XMS_ITS | Encounter Summary ---
Author Organization [facility] Address [address] [place] [address] Care Team Providers Care Clerical Specialist Name Role Phone Unavailable Primary Care Provider Unavailabl e Encounter Details Date Type Department Care Team (Late st Contact Info) Description 06/01/2023 Clinisync Result Encounter [facility]S External Department Unsolicited Fannie Gardner, DO [address] [place], [place] [address] Social History Tobacco Use Types Packs/Day Years [...] suspected to have Coronavirus/COVID-19? No / Unsure 05/18/2023 1:23 PM EDT documented as of this encounter Plan of Treatment Upcoming Encounters Date Type Department Care Team (Late st Contact Info) Description 02/27/2025 3:00 PM EDT Consult [facility] BCP OB [address] [place] [address] Fannie Gardner, [address] [place] [address] documented as of this encounter Goals Goal Patient Goal Type Associated Problems Recent Progress Patient-Stated? Author Reminders Care Plan OB Reminders No Open Scheduling, Background documented as of this encounter Procedures Procedure Name Priority Date/Time Associated Diagnosis Comments US OB UMBILICAL ARTERY DOPPLER 06/01/2023 6:36 PM EDT documented in this encounter Results * US OB UMBILICAL ARTERY DOPPLER (06/01/2023 6:36 PM EDT) Anatomical Region Laterality Modality Radiographic Lisette ging 06/01/2023 6:36 PM EDT Narrative 06/01/2023 6:36 [place] [address] Ultrasound Report Signed Patient: SUSANA SOTO MR#: [id number] : 1990 Acct:[id number] Age/Sex: 32 / F ADM Date: 06/01/23 Loc: [facility] 253-[address]: Fannie Gardner D.O. Ordering Physician: Fannie Gardner D.O. Date of Service: 06/01/23 Procedure(s): US OB umbilical artery Accession Number(s): [id number] cc: Fannie Gardner D.O. [place] [id number] Patient Name: SUSANA SOTO MRN: [id number] date: 1990 Sex: F Assigned Patient Location: [facility] Current Patient Location: [facility] Accession/Order Number: [id number] Exam Date: 06/01/2023 16:02 Report Date: 06/01/2023 18:36 At the request of: FANNIE GARDNER Procedure: US OB umbilical artery EXAM: US OB BPP w non-stress, US OB umbilical artery HISTORY: decreased mvmt, high bp COMPARISON: 05/31/2023. 05/03/2023. 03/22/2023. TECHNIQUE: Biophysical profile score. FINDINGS: breathing movements: 2 Gross body movements: 2 tone: 2 Quantitative amniotic fluid volume: 2 Amniotic fluid index measures 13.6 cm. cardiac rate of 134 bpm. Doppler measurements umbilical artery: Antegrade flow within the umbilical arteries. Proximal umbilical artery PI 0.91 Proximal umbilical artery RI 0.60 Mid umbilical artery PI 0.77 Mid umbilical artery RI 0.53 Distal umbilical artery PI 0.79 Distal umbilical artery RI 0.53 Band within the anterior aspect of the amniotic fluid, raising possibility of amniotic band syndrome. US/US OB umbilical artery IMPRESSION: Biophysical profile score of 8/8 Antegrade flow within the umbilical arteries. Linear echogenic structure within the anterior aspect of the amniotic fluid raising possibility of amniotic band syndrome. Electronically authenticated by: JUAN RAMON GARCIA Date: 06/01/2023 18:36 Dictated By: Juan Ramon Garcia M.D. Signed By: 06/01/231838 DD/ 35 TD/TT: Rehabilitation Attendant: Procedure Note Radiology, Radiologist, MD - 06/01/2023 [place] [address] Ultrasound Report Signed Patient: SUSANA SOTO MMR#: [id number] : 1990Acct:[id number] Age/Sex: 32 / FADM Date: 06/01/23 Loc: [facility] 253-[address]: Fannie Gardner D.O. Ordering Physician: Fannie Gardner D.O. Date of Service: 06/01/23 Procedure(s): US OB umbilical artery Accession Number(s): [id number] cc: Fannie Gardner D.O. [place] [address] Patient Name: SUSANA SOTO MRN: [id number] date: 1990 Sex: F Assigned Patient Location: [facility] Current Patient Location: [facility] Accession/Order Number: [id number] Exam Date: 06/01/2023 16:02 Report Date: 06/01/2023 18:36 At the request of: FANNIE GARDNER Procedure: US OB umbilical artery EXAM: US OB BPP w non-stress, US OB umbilical artery HISTORY: decreased mvmt, high bp COMPARISON: 05/31/2023. 05/03/2023. 03/22/2023. TECHNIQUE: Biophysical profile score. FINDINGS: breathing movements: 2 Gross body movements: 2 tone: 2 Quantitative amniotic fluid volume: 2 Amniotic fluid index measures 13.6 cm. cardiac rate of 134 bpm. Doppler measurements umbilical artery: Antegrade flow within the umbilical arteries. Proximal umbilical artery PI 0.91 Proximal umbilical artery RI 0.60 Mid umbilical artery PI 0.77 Mid umbilical artery RI 0.53 Distal umbilical artery PI 0.79 Distal umbilical artery RI 0.53 Band within the anterior aspect of the amniotic fluid, raising possibilityof amniotic band syndrome. US/US OB umbilical artery IMPRESSION: Biophysical profile score of 8/8 Antegrade flow within the umbilical arteries. Linear echogenic structure within the anterior aspect of the amnioticfluid raising possibility of amniotic band syndrome. Electronically authenticated by: JUAN RAMON GARCIA Date: 8:36 Dictated By: Juan Ramon Garcia M.D. Signed By:06/01/231838 DD/ 35 TD/TT: Rehabilitation Attendant: us Fannie Gardner DO IMG XR PROCEDURES Final Result documented in this encounter Visit Diagnoses Not on filedocumented in this encounter Additional Health Concerns Active Problems Noted Date Diagnosed Date OB Reminders 02/23/2023 documented as of this encounter
--- OUTSIDE RECORDS SUMMARY | 2025-02-19 19:05 | XMS_ITS | Encounter Summary ---
Author Organization [facility] Address [address] [facility] [place] [address] Care Team Providers Care Household Worker Name Role Phone Unavailable Primary Care Provider Unavailabl e Encounter Details Date Type Department Care Team (Late st Contact Info) Description 09/15/2023 Clinisync Result Encounter [facility] External Department Unsolicited Gibran Gardner, DO [address] [place] [id number] Social History Tobacco Use Types Packs/Day Years Used Date Smoking Tobacco: Never Assessed Comments No Sex and Gender Information Value Date Recorded Sex Assigned at Not on file Legal Sex Female 11:19 PM EDT Gender Identity Not on file Sexual Orientation Not on file documented as of this encounter Plan of Treatment Upcoming Encounters Date Type Department Care Team (Late st Contact Info) Description 02/27/2025 3:00 PM EDT Consult [facility] B[facility] OB [address] [place] [phone] Gibran Gardner DO [address] [place] [address] documented as of this encounter Goals Goal Patient Goal Type Associated Problems Recent Progress Patient-Stated? Author Reminders Care Plan OB Reminders No Open Scheduling, Background documented as of this encounter Procedures Procedure Name Priority Date/Time Associated Diagnosis Comments BI US BREAST LIMITED RIGHT 09/15/2023 12:10 PM EST documented in this encounter Results * Right breast US limited (09/15/2023 12:10 PM EST) Anatomical Region Laterality Modality Breast Right Ultrasound 09/15/2023 12:1 0 PM EST Narrative 09/15/2023 12:11 PM EST [address] [address] Ultrasound Report Signed Patient: SUSANA SOTO MR#: [id number] : 1990 Acct:[id number] Age/Sex: 32 / F ADM Date: 09/15/23 Loc: US Attending Dr: Gibran Gardner D.O. Ordering Physician: Gibran Gardner D.O. Date of Service: 09/15/23 Procedure(s): US breast RT limited Accession Number(s): [id number] cc: Gibran Gardner D.O.; Physician,Non-Staff [place] Patient Name: SUSANA SOTO MR#: [id number] : 1990 Exam Date: 09/15/2023 Ordering Doctor: DR Gibran Gardner . RADIOLOGY REPORT PROCEDURE: US BREAST RT LIMITED COMPARISON: None. INDICATIONS: Mastitis N61.0 TECHNIQUE: Breast ultrasound was performed, with evaluation focusing only on specific areas of concern. FINDINGS: Subcutaneous edema and some mild skin thickening is identified. Noted at the 8 o'clock position is a cystic area measuring 2.4 by 1.0 cm, this appears to be a dilated duct. No internal debris is observed. No evidence of an abscess. No hypervascularity RECOMMENDATIONS: Dilated duct without evidence of an abscess Subcutaneous edema and mild skin thickening supportive of the provided diagnosis of mastitis PLEASE NOTE: A NORMAL ULTRASOUND EXAMINATION DOES NOT EXCLUDE THE POSSIBILITY OF BREAST CANCER. A CLINICALLY SUSPICIOUS PALPABLE LUMP SHOULD BE BIOPSIED. Dictated by: Jimmy Alexander MD on 09/15/2023 at 12:04 Approved by: Jimmy Alexander MD on 09/15/2023 at 12:09 Dictated By: Jimmy Alexander M.D. Signed By: 09/15/23 1211 DD/ 1210 TD/TT: Console Operator: Procedure Note Radiology, Radiologist, - 09/15/2023 [place] [address] Ultrasound Report Signed Patient: SUSANA SOTO MMR#: [id number] : 1990Acct:[id number] Age/Sex: 32 / FADM Date: 09/15/23 Loc: US Attending Dr: Gibran Gardner D.O. Ordering Physician: Gibran Gardner D.O. Date of Service: 09/15/23 Procedure(s): US breast RT limited Accession Number(s): [id number] cc: Gibran Gardner D.O.; Physician,Non-Staff [place] Patient Name: SUSANA SOTO MR#: [id number] : 1990 Exam Date: 09/15/2023 Ordering Doctor: DR Gibran Gardner . RADIOLOGY REPORT PROCEDURE: US BREAST RT LIMITED COMPARISON: None. INDICATIONS: Mastitis N61.0 TECHNIQUE: Breast ultrasound was performed, with evaluation focusingonly on specific areas of concern. FINDINGS: Subcutaneous edema and some mild skin thickening isidentified. Noted at the 8 o'clock position is a cystic area measuring 2.4 by 1.0 cm, this appears to be a dilated duct. No internal debris is observed. No evidence of an abscess. No hypervascularity RECOMMENDATIONS: Dilated duct without evidence of an abscess Subcutaneous edema and mild skin thickening supportive of the provided diagnosis of mastitis PLEASE NOTE: A NORMAL ULTRASOUND EXAMINATION DOES NOT EXCLUDE THEPOSSIBILITY OF BREAST CANCER. A CLINICALLY SUSPICIOUS PALPABLE LUMP SHOULD BEBIOPSIED. Dictated by: Jimmy Alexander MD on 09/15/2023 at 12:04 Approved by: Jimmy Alexander MD on 09/15/2023 at 12:09 Dictated By: Jimmy Alexander M.D. Signed By:09/15/23 1211 DD/ 1210 TD/TT: Console Operator: us Gibran Gardner DO IMG US PROCEDURES Final Result documented in this encounter Visit Diagnoses Not on filedocumented in this encounter Additional Health Concerns Active Problems Noted Date Diagnosed Date OB Reminders 02/23/2023 documented as of this encounter
--- OUTSIDE RECORDS SUMMARY | 2025-02-19 19:05 | XMS_ITS | Encounter Summary ---
Author Organization [facility] Address [address] [place] [address] Care Team Providers Care Cra Officer Name Role Phone Unavailable Primary Care Provider Unavailabl e Encounter Details Date Type Department Care Team (Late st Contact Info) Description 05/31/2023 Clinisync Result Encounter [facility] External Department Unsolicited Fannie Gardner, DO [address] [place], [facility]11 Social History Tobacco Use Types Packs/Day Years [...] Consult [facility] BCP OB [address] [place] [address] Fannie Gardner, [address] [place] [address] documented as of this encounter Goals Goal Patient Goal Type Associated Problems Recent Progress Patient-Stated? Author Reminders Care Plan OB Reminders No Open Scheduling, Background documented as of this encounter Procedures Procedure Name Priority Date/Time Associated Diagnosis Comments US OB BPP W NON-STRESS 05/31/2023 6:47 PM EDT documented in this encounter Results * US OB BPP W NON-STRESS (05/31/2023 6:47 PM EDT) Anatomical Region Laterality Modality Other 05/31/2023 6:47 PM EDT Narrative 05/31/2023 6:47 [place] [address] Ultrasound Report Signed Patient: SUSANA SOTO MR#: [id number] : 1990 Acct:[id number] Age/Sex: 32 / F ADM Date: 05/31/23 Loc: [facility] Attending Dr: Fannie Gardner D.O. Ordering Physician: Fannie Gardner D.O. Date of Service: 05/31/23 Procedure(s): US OB BPP w non-stress Accession Number(s): [id number] cc: Fannie Gardner D.O. [address] [address] Patient Name: SUSANA SOTO MRN: [id number] date: 1990 Sex: F Assigned Patient Location: [facility] Current Patient Location: Accession/Order Number: [id number] Exam Date: 05/31/2023 14:30 Report Date: 05/31/2023 18:47 At the request of: FANNIE GARDNER Procedure: US OB BPP w non-stress EXAMINATION: US OB BPP w non-stress HISTORY: ELEVATED BP COMPARISON: No relevant comparison available. TECHNIQUE: Ultrasound biophysical profile was performed in the radiology department. FINDINGS: BREATHING MOVEMENTS: 2.0 GROSS BODY MOVEMENTS: 2.0 TONE: 2.0 QUALITATIVE AMNIOTIC FLUID VOLUME: 2.0 PRESENTATION: CEPHALIC HEART RATE: 155.2 bpm H.B./min AMNIOTIC FLUID VOLUME: 16.5 cm cm GESTATIONAL AGE: 34 weeks 5 days CONCLUSION: Total biophysical profile score: 8.0 Electronically authenticated by: SARITA TERRAZAS Date: 05/31/2023 18:47 Dictated By: Sarita Terrazas M.D. Signed By: 05/31/231848 DD/ 46 TD/TT: Electrician Assistant: Procedure Note Radiology, Radiologist, - 05/31/2023 [place] [address] Ultrasound Report Signed Patient: SUSAAN SOTO MMR#: [id number] : 1990Acct:[id number] Age/Sex: 32 / FADM Date: 05/31/23 Loc: [facility] Attending Dr: Fannie Gardner D.O. Ordering Physician: Fannie Gardner D.O. Date of Service: 05/31/23 Procedure(s): US OB BPP w non-stress Accession Number(s): [id number] cc: Fannie Gardner D.O. [place] [address] Patient Name: SUSANA SOTO MRN: [id number] date: 1990 Sex: F Assigned Patient Location: [facility] Current Patient Location: Accession/Order Number: [id number] Exam Date: 05/31/2023 14:30 Report Date: 05/31/2023 18:47 At the request of: FANNIE GARDNER Procedure: US OB BPP w non-stress EXAMINATION: US OB BPP w non-stress HISTORY: ELEVATED BP COMPARISON: No relevant comparison available. TECHNIQUE: Ultrasound biophysical profile was performed in the radiology department. FINDINGS: BREATHING MOVEMENTS: 2.0 GROSS BODY MOVEMENTS: 2.0 TONE: 2.0 QUALITATIVE AMNIOTIC FLUID VOLUME: 2.0 PRESENTATION: CEPHALIC HEART RATE: 155.2 bpm H.B./min AMNIOTIC FLUID VOLUME: 16.5 cm cm GESTATIONAL AGE: 34 weeks 5 days CONCLUSION: Total biophysical profile score: 8.0 Electronically authenticated by: SARITA TERRAZAS Date: 05/31/2023 18:47 Dictated By: Sarita Terrazas M.D. Signed By:05/31/231848 DD/ 1847 TD/TT: Electrician Assistant: us Fannie Gardner DO [facility] Final Result documented in this encounter Visit Diagnoses Not on filedocumented in this encounter Additional Health Concerns Active Problems Noted Date Diagnosed Date OB Reminders 02/23/2023 documented as of this encounter
--- OUTSIDE RECORDS SUMMARY | 2025-02-19 19:05 | XMS_ITS | Encounter Summary ---
Author Organization [facility] Address [address] [facility] [place] [address] Care Team Providers Care Shoe Polisher Name Role Phone Unavailable Primary Care Provider Unavailabl e Encounter Details Date Type Department Care Team (Late Contact Info) Description 02/19/2025 Bamboo flowsheet [facility] OB [facility] [place] [address] Gibran Gardner, [address] [place], [facility]11 Social History Tobacco Use Types Packs/Day Years [...] Description 02/27/2025 3:00 PM EDT Consult [facility] OB [facility] [place] [address] [facility] [place] [address] documented as of this encounter Goals Goal Patient Goal Type Associated Problems Recent Progress Patient-Stated? Author Reminders Care Plan OB Reminders No Open Scheduling, Background documented as of this encounter Visit Diagnoses Not on filedocumented in this encounter Additional Health Concerns Active Problems Noted Date Diagnosed Date OB Reminders 02/23/2023 documented as of this encounter
--- OUTSIDE RECORDS SUMMARY | 2025-02-19 19:05 | XMS_ITS | Encounter Summary ---
Author Organization [facility] Address [address] [place] [address] Care Team Providers Care Parts Runner Name Role Phone Unavailable Primary Care Provider Unavailabl e Encounter Details Date Type Department Care Team (Latest Contact Info) Description 02/18/2025 Travel Social History Tobacco Use Types Packs/Day Years [...] PM EDT Consult [facility] B[facility] OB [address] [place] [phone] Gibran Gardner, DO [address] [facility] [address] [place], [facility]11 documented as of this encounter Goals Goal Patient Goal Type Associated Problems Recent Progress Patient-Stated? Author Reminders Care Plan OB Reminders No Open Scheduling, Background documented as of this encounter Visit Diagnoses Not on filedocumented in this encounter Additional Health Concerns Active Problems Noted Date Diagnosed Date OB Reminders 02/23/2023 documented as of this encounter
--- OUTSIDE RECORDS SUMMARY | 2025-02-19 19:05 | XMS_ITS | Encounter Summary ---
Author Organization [facility] Address [address] [facility] [place] [address] Care Team Providers Care Assistant Education Director Name Role Phone Unavailable Primary Care Provider Unavailabl e Encounter Details Date Type Department Care Team (Late st Contact Info) Description 02/01/2023 Abstract [facility] OB [address] [place] [address] Gibran Gardner, DO [facility] [place], [facility]11 Social History Tobacco Use Types Packs/Day Years [...] Description 02/27/2025 3:00 PM EDT Consult [facility] OB [address] [place] [address] Gibran Gardner, DO [facility] [place], [place] [id number] documented as of this encounter Visit Diagnoses Not on filedocumented in this encounter
--- OUTSIDE RECORDS SUMMARY | 2025-02-19 19:05 | XMS_ITS | Encounter Summary ---
Author Organization [facility] Address [address] [facility] [place] [address] Care Team Providers Care Core Java Engineer Name Role Phone Unavailable Primary Care Provider Unavailabl e Encounter Details Date Type Department Care Team (Late st Contact Info) Description 02/01/2023 Abstract [facility] OB [address] [place] [address] Gibran Gardner, DO [facility] [place], [facility]11 Social History Tobacco Use Types Packs/Day [...] Description 02/27/2025 3:00 PM EDT Consult [facility] OB [address] [place] [address] Gibran Gardner, DO [facility] [place], [place] [id number] documented as of this encounter Visit Diagnoses Not on filedocumented in this encounter
--- OUTSIDE RECORDS SUMMARY | 2025-02-19 19:05 | XMS_ITS | Encounter Summary ---
Author Organization [facility] Address [address] [facility] [place] [address] Care Team Providers Care Adult Crossing Guard Name Role Phone Unavailable Primary Care Provider Unavailabl e Encounter Details Date Type Department Care Team (Late st Contact Info) Description 01/17/2025 Abstract [facility] OB [facility] [place] [phone] Gibran Gardner, [facility] Christy Amezcua, [facility]11 Social History Tobacco Use Types Packs/Day [...] Description 02/27/2025 3:00 PM EDT Consult [facility] [place] [address] [place] [phone] Gibran Gardner DO [address] [place], [place] [id number] documented as of this encounter Goals Goal Patient Goal Type Associated Problems Recent Progress Patient-Stated? Author Reminders Care Plan OB Reminders No Open Scheduling, Background documented as of this encounter Visit Diagnoses Not on filedocumented in this encounter Additional Health Concerns Active Problems Noted Date Diagnosed Date OB Reminders 02/23/2023 documented as of this encounter
--- OUTSIDE RECORDS SUMMARY | 2025-02-19 19:05 | XMS_ITS | Encounter Summary ---
Author Organization [facility] Address [address] [facility] [place] [address] Care Team Providers Care Correctional Officer Chief Name Role Phone Unavailable Primary Care Provider Unavailabl e Encounter Details Date Type Department Care Team (Late st Contact Info) Description 08/10/2023 Abstract [facility] OB [address] [place], [place] [address] [phone] Gibran Gardner, DO [facility] Christy Amezcua, [facility]11 Social History Tobacco Use Types Packs/Day Years [...] Description 02/27/2025 3:00 PM EDT Consult [facility] [place] [address] [place] [phone] Gibran Gardner DO [address] [place], [place] [id number] documented as of this encounter Goals Goal Patient Goal Type Associated Problems Recent Progress Patient-Stated? Author Reminders Care Plan OB Reminders No Open Scheduling, Background documented as of this encounter Visit Diagnoses Not on filedocumented in this encounter Additional Health Concerns Active Problems Noted Date Diagnosed Date OB Reminders 02/23/2023 documented as of this encounter
--- OUTSIDE RECORDS SUMMARY | 2025-02-19 19:05 | XMS_ITS | Encounter Summary ---
Author Organization [facility] Address [address] [place] [address] Care Team Providers Care Merchandise Displayer Name Role Phone Unavailable Primary Care Provider Unavailabl e Encounter Details Date Type Department Care Team (Late st Contact Info) Description 06/17/2023 Abstract [facility] OB [address] [place] [address] Gibran Gardner, DO [facility] Christy Amezcua, [facility]11 Social History Tobacco Use Types [...] suspected to have Coronavirus/COVID-19? No / Unsure 06/06/2023 4:13 PM EDT documented as of this encounter Plan of Treatment Upcoming Encounters Date Type Department Care Team (Late st Contact Info) Description 02/27/2025 3:00 PM EDT Consult [facility] OB [address] [place] [address] Gibran Gardner, DO [address] [place], [place] [id number] documented as of this encounter Goals Goal Patient Goal Type Associated Problems Recent Progress Patient-Stated? Author Reminders Care Plan OB Reminders No Open Scheduling, Background documented as of this encounter Visit Diagnoses Not on filedocumented in this encounter Additional Health Concerns Active Problems Noted Date Diagnosed Date OB Reminders 02/23/2023 documented as of this encounter
--- OUTSIDE RECORDS SUMMARY | 2025-02-19 19:05 | XMS_ITS | Encounter Summary ---
Author Organization [facility] Address [address] [facility] [place] [address] Care Team Providers Care Director Camp Name Role Phone Unavailable Primary Care Provider Unavailabl e Encounter Details Date Type Department Care Team (Late st Contact Info) Description 02/01/2023 Abstract [facility] OB [address] [place] [address] Gibran Gardner, DO [facility] Christy Amezcua, [facility]11 Social History Tobacco Use Types Packs/Day Years [...] Description 02/27/2025 3:00 PM EDT Consult [facility] OB [address] [place] [address] Gibran Gardner, DO [facility] [place], [place] [id number] documented as of this encounter Visit Diagnoses Not on filedocumented in this encounter
--- OUTSIDE RECORDS SUMMARY | 2025-02-19 19:05 | XMS_ITS | Encounter Summary ---
Author Organization [facility] Address [address] [place] [address] Care Team Providers Care Perinatal Educator Name Role Phone Unavailable Primary Care Provider Unavailabl e Encounter Details Date Type Department Care Team (Late st Contact Info) Description 05/04/2023 Clinisync Result Encounter [facility] External Department Unsolicited Fannie Gardner, DO [address], [facility]11 Social History Tobacco Use Types Packs/Day [...] suspected to have Coronavirus/COVID-19? No / Unsure 04/25/2023 6:23 PM EDT documented as of this encounter Plan of Treatment Upcoming Encounters Date Type Department Care Team (Late st Contact Info) Description 02/27/2025 3:00 PM EDT Consult [facility] OB [address] [place] [address] Fannie Gardner, [address] [place] [address] documented as of this encounter Goals Goal Patient Goal Type Associated Problems Recent Progress Patient-Stated? Author Reminders Care Plan OB Reminders No Open Scheduling, Background documented as of this encounter Procedures Procedure Name Priority Date/Time Associated Diagnosis Comments US OB GROWTH 05/04/2023 7:15 AM EDT documented in this encounter Results * US OB GROWTH (05/04/2023 7:15 AM EDT) Anatomical Region Laterality Modality Other 05/04/2023 7:15 AM EDT Narrative 05/04/2023 7:15 [place] [address] Ultrasound Report Signed Patient: SUSANA SOTO MR#: [id number] : 1990 Acct:[id number] Age/Sex: 32 / F ADM Date: 05/03/23 Loc: US Attending Dr: Fannie Gardner D.O. Ordering Physician: Fannie Gardner D.O. Date of Service: 05/03/23 Procedure(s): US OB growth Accession Number(s): [id number] cc: Fannie Gardner D.O. [place] [address] Patient Name: SUSANA SOTO MRN: [id number] date: 1990 Sex: F Assigned Patient Location: Current Patient Location: Accession/Order Number: [id number] Exam Date: 05/03/2023 10:40 Report Date: 05/04/2023 07:15 At the request of: FANNIE GARDNER Procedure: US OB growth EXAMINATION: US OB growth HISTORY: size inconsistent with dates O26.849 COMPARISON: No relevant comparison available. FINDINGS: Heart Rate: 135.0 bpm Amniotic Fluid Volume: 15.8 cm Number: 1.0 Position: Breech presentation, longitudinal lie Maximum Vertical Pocket: 4.1 cm cm 4.9 cm cm 2.5 cm cm 4.2 cm cm BIOMETRY: BPD: 8.0 cm cm; 32 weeks 2 days; 84% HC: 29.6 cmcm; 32 weeks 5 days, 72% AC: 27.3 cm cm; 31 weeks 3 days, 68% FL: 5.8 cm cm; 30 weeks 3 days; 27.8 % % EFW: 1743.3 grams, 3 lbs. 13 oz., 59% FL/AC: 21.3 FL/BPD: 72.3 HC/AC: 1.1 GESTATIONAL AGE: Age by EDC: 30 weeks 5 days DORI by EDC: 07/07/2023 Age by US: 31 weeks 5 days DORI by US: 06/30/2023 US/US OB growth IMPRESSION: Normal interval growth Electronically authenticated by: SARITA TERRAZAS Date: 05/04/2023 07:15 Dictated By: Sarita Terrazas M.D. Signed By: 05/04/23717 DD/ 4 TD/TT: Audio Installer: Procedure Note Radiology, Radiologist, MD - 05/13/2023 [place] [address] Ultrasound Report Signed Patient: SUSANA SOTO MMR#: [id number] : 1990Acct:[id number] Age/Sex: 32 / FADM Date: 05/03/23 Loc: US Attending Dr: Fannie Gardner D.O. Ordering Physician: Fannie Gardner D.O. Date of Service: 05/03/23 Procedure(s): US OB growth Accession Number(s): [id number] cc: Fannie Gardner D.O. [place] [address] Patient Name: SUSANA SOTO MRN: [id number] date: 1990 Sex: F Assigned Patient Location: US Current Patient Location: Accession/Order Number: [id number] Exam Date: 05/03/2023 10:40 Report Date: 05/04/2023 07:15 At the request of: FANNIE GARDNER Procedure: US OB growth EXAMINATION: US OB growth HISTORY: size inconsistent with dates O26.849 COMPARISON: No relevant comparison available. FINDINGS: Heart Rate: 135.0 bpm Amniotic Fluid Volume: 15.8 cm Number: 1.0 Position: Breech presentation, longitudinal lie Maximum Vertical Pocket: 4.1 cm cm 4.9 cm cm 2.5 cm cm 4.2 cm cm BIOMETRY: BPD: 8.0 cm cm; 32 weeks 2 days; 84% HC: 29.6 cmcm; 32 weeks 5 days, 72% AC: 27.3 cm cm; 31 weeks 3 days, 68% FL: 5.8 cm cm; 30 weeks 3 days; 27.8 % % EFW: 1743.3 grams, 3 lbs. 13 oz., 59% FL/AC: 21.3 FL/BPD: 72.3 HC/AC: 1.1 GESTATIONAL AGE: Age by EDC: 30 weeks 5 days DORI by EDC: 07/07/2023 Age by US: 31 weeks 5 days DORI by US: 06/30/2023 US/US OB growth IMPRESSION: Normal interval growth Electronically authenticated by: SARITA TERRAZAS Date: 05/04/2023 07:15 Dictated By: Sarita Terrazas M.D. Signed By:05/04/2318 DD/ 4 TD/TT: Audio Installer: us Fannie Jj DO [facility] Final Result documented in this encounter Visit Diagnoses Not on filedocumented in this encounter Additional Health Concerns Active Problems Noted Date Diagnosed Date OB Reminders 02/23/2023 documented as of this encounter
--- OUTSIDE RECORDS SUMMARY | 2025-02-19 19:05 | XMS_ITS | Clinical Summary ---
Author Organization [facility] Address [address] [facility] [place] [address] Care Team Providers Care Oil Prospecting Observer Name Role Phone Unavailable Primary Care Provider Unavailabl e Allergies No known active allergies Medications Ztjisrvb-Nau-Lo- FA ( 1 + IRON PO) Take 1 tablet by mouth in the morning. Active Encounters Date Type Department Care Team Description 02/19/2025 8:30 AM EDT Office Visit [facility] [address] [place] [address] Gibran Gardner DO Well woman exam with routine gynecological exam; PCOS (polycystic ovarian syndrome); Uterine polyp; Hormone imbalance 02/19/2025 Bamboo flowsheet [facility] [address] [place] [address] Gibran Gardner, 02/18/2025 Travel 02/13/2025 Orders Only [facility] [address] [place] [address] Allie Tellez LPN 01/17/2025 Abstract [facility] [address] [place] [address] Gibran Gardner, 01/16/2025 Telephone [facility] [address] [place] [address] Pebbles Saul LPN from Last 3 Months Social History Tobacco Use Types Packs/Day Years Used Date Smoking Tobacco: Never Assessed Comments Unknown Sex and Gender Information Value Date Recorded Sex Assigned at Not on file Legal Sex Female 11:19 PM EDT Gender Identity Not on file Sexual Orientation Not on file Last Filed Vital Signs Vital Sign Reading Time Taken Comments Blood Pressure 112/74 02/19/2025 8:49 AM EDT Pulse - - Temperature - - Respiratory Rate - - Oxygen Saturation - - Inhaled Oxygen Concentration - - Weight 98 kg (216 lb 1.9 oz) 02/19/2025 8:49 AM EDT Height 170.2 cm (5' 7 ) 07/25/2023 10:03 AM EST Body Mass Index 33.85 07/25/2023 10:03 AM EST Plan of Treatment Upcoming Encounters Date Type Department Care Team (Late st Contact Info) Description 02/27/2025 3:00 PM EDT Consult [facility] OB [address] [place] [phone] Gibran Gardner DO [address] [place] [address] Goals Goal Patient Goal Type Associated Problems Recent Progress Patient-Stated? Author Reminders Care Plan OB Reminders No Open Scheduling, Background Additional Health Concerns Active Problems Noted Date Diagnosed Date OB Reminders 02/23/2023 Insurance [employer]
--- OUTSIDE RECORDS SUMMARY | 2025-02-19 19:05 | XMS_ITS | Encounter Summary ---
Author Organization [facility] Address [address] [facility] [place] [place] [address] Care Team Providers Care Spa Manager Name Role Phone Unavailable Primary Care Provider Unavailabl e Encounter Details Date Type Department Care Team (Late st Contact Info) Description 02/13/2025 Orders Only [facility] OB [address] [place] [phone] Allie Tellez LPN [address] [facility] Lien LIMON [facility]11 Social History Tobacco Use Types Packs/Day [...] Description 02/27/2025 3:00 PM EDT Consult [facility] OB [address] [place] [phone] Gibran Gardner DO [address] [place], [place] [phone] documented as of this encounter Goals Goal Patient Goal Type Associated Problems Recent Progress Patient-Stated? Author Reminders Care Plan OB Reminders No Open Scheduling, Background documented as of this encounter Procedures Procedure Name Priority Date/Time Associated Diagnosis Comments PAP SMEAR Routine 02/14/2024 12:00 AM EDT documented in this encounter Results * Pap Smear (02/14/2024 12:00 AM EDT) Swab Cervical swab / Unknown us Jj Nurse [facility] Ob LAB CYTOLOGY ORDERABLES Final Result EXTERNAL LAB documented in this encounter Visit Diagnoses Not on filedocumented in this encounter Additional Health Concerns Active Problems Noted Date Diagnosed Date OB Reminders 02/23/2023 documented as of this encounter
--- OUTSIDE RECORDS SUMMARY | 2025-02-19 19:06 | XMS_ITS | CCD ---
Author Organization [facility] Care Team Providers Care Project Hire Name Role Phone JJ ., DR GRECO Admitting Unavailable JJ ., DR GRECO Attending Unavailable REQUEST, DR LOPEZ LISTED Primary Care Unavaila ble JJ ., DR GRECO Consulting Unavailable ZIEBER, DR [...] Unavaila ble MAURICIO, DR DONAHUE Consulting Unavailable JJ ., DR GRECO Admitting Unavailable JJ ., DR GRECO Attending Unavailable REQUEST, DR LOPEZ LISTED Primary Care Unavaila ble JJ ., DR GRECO Consulting Unavailable ZIEBER, DR MOUSTAPHA Pepper Consulting Unavailable JJ ., DR GRECO Admitting Unavailable JJ ., DR GRECO Attending Unavailable REQUEST, DR LOPEZ LISTED Primary Care Unavaila ble JJ ., DR GRECO Consulting Unavailable JJ ., DR GRECO Admitting Unavailable JJ ., DR GRECO Attending Unavailable REQUEST, DR LOPEZ LISTED Primary Care Unavaila ble JJ ., DR GRECO Consulting Unavailable FAMILIA GARBER Attending Unavailable JJFANNIE Attending Unavailable JJFANNIE Attending Unavailable TaqueriaVera Attending Unavailable JJFANNIE Admitting Unavailable JJFANNIE Attending Unavailable TaqueriaVera bartlett Primary Care Unavailable Severiano Malcolm Attending Unavailable Severiano Malcolm Admitting Unavailable TaqueriaVera bartlett Primary Care Unavailable Unavailable Primary Care Provider Unavailabl e Allergies Allergy Classification Reported Allergen(s) Allergy Type Date of Onset Reaction(s) Facility (1 source) No Known Medication Allergies; Translations: [No Known Medication Allergies] Propensity to adverse reactions (disorder) [facility] Repository Medications Current Medications Medication Drug Class(es) Dates Sig (Normalized) Sig (Original) [place] (No Known Home Meds) (1 source) Start: 03-19-2024 [place] (No Known Home Meds) Active March 19, 2024 12:00am Tkresngf-Afp-Mf-FA ( 1 + IRON PO) (1 source) Updfkxnr-Xol-Gv-FA ( 1 + IRON PO) Take 1 tablet by mouth in the morning. Active Completed/Discontinued Medications Medication Drug Class(es) Dates Sig (Normalized) Sig (Original) predniSONE 20 mg oral tablet (1 source) Start: 03-07-2024 End: 03-19-2024 take 3 tablets by mouth once daily, then take 2 tablets by mouth once daily, then take 1 tablet by mouth once daily Prednisone Discontinued 20 MG PO .COMPLEX 18 March 07, 2024 12:00am March 19, 2024 4:42pm Take 3 tabs po daily x 3 days, then take 2 tabs po daily x 3 days, then take 1 tab po daily x 3 days. Problems Active Problems Problem Classification Problem Date Documented Da te Episodic/Chronic Allergic reactions (2 sources) Contact dermatitis; Translations: [Unspecified contact dermatitis, unspecified cause] 03-07-2024 Episodic Menstrual disorders (5 sources) Irregular menstruation, unspecified; [...] [CONTACT W/AND (SUSP) EXPOS COVID-19] Onset: 08-27-2022 Unclassified (1 source) OB Reminders Onset: 02-23-2023 02-23-2023 Viral infection (1 source) COVID-19; Translations: [COVID-19] [...] Test Name Value Interpretation Reference Range Facility Employee Health Noteon 02-02 Employee Health Note [id number]#[id number] TGTIFF Normal [facility] hCG Quantitativeon hCG Quantitative 37.8 mIU/mL High 0.0-0.6 [facility] Comment on above: Result Comment: Post -Menopausal Reference Range is: 0.1-11.6 mIU/mL Performed By: #### 7 [id number] #### [facility] (DEFAULT) [address] [place] [address] Coding Summaryon 01-23-2025 Coding Summary HTMLBase 64 RdsjeoxvDHz2iPt+PGhlYWQ +YG6CRRSgZ79hjABvlU0eM5 NMTElOSywgQVBQTElOSyIgb aOcUL5giOIiEIFv IC8+YD5bWDYlJzrdaJZoe6B 0uLF3I32ueu6iAAghoXZ1UQ FxOvEdmfgxx3pwfDa6NJsiT mluOyBt FFWccB45XYK9tF33Vg23wVQ yzUUku4krhAr1WpXwGDVsPG A0nBxyTByqv3WwUOKwJ39im FUgb0F5 ANLkqMuvoDIpHlSwkBW0nP1 qMKflgapau6pupechLle7wr 48jYEor2P4bFQ4J9XbwoD5Q GJvbGQg PxbjmTLAxQ6weucfo9gques sIiDaDPGeGPj9XJd9JGZbuU ouNcYmDG31YIN0WPAmyvLnT 2FsLWFs qNkaUxA4i1M8Hq0CH9BMAyw fS7BSFINBYBkbjXM+PC90cj 80U2LlBzyvUdg6BQZlCIB7c SH9eH1c PSStDSjzk5E4fPL3V3CqgiV gip0um4iuBBRtIVpgY16nzC Xwz0X4MKXcoJL7ZDEwcSerD iBzaG93 Oyc+XINaqLvpr1TnJadkf1r ea3cvtFe2AhdjGYXrtmZtiO adDKL6v6TtCx4hXRRayTY4g RD1dW0s PnVjEdC6HJiqX878HvWavET xWdkjP39vI5VzjJM+PHRyPj g1LSJotMdfEQ6lQ8OiRUJqd mctbGVm fAolGB8gZZSmudxsDDGmvA1 kBSQjO5q6ZyIlHtJ4ZFykE8 LvBQWfchumWm42qO6lDeBcF zG0SBhr J6FkffK8MIOhgXIbWLbcFUV 7B79hf7Z6CRUaZARcEXJ6lR J5rW5zrLucuymnfIDqbTlfw mVydGlj AVssZYwoJ747TLNvfUnrFyV vZGluZyBEYXRlOiAgMDYvMD QvMjAyNTwvdGQ+VBIdGQD0o WxlPSAn rGCnUKecBr9muXyncRhwKP8 dUOBpehiwKTHisT0hKHCetS CpdFtmDP3oRSZhhnpgh206W iAxMHB0 LAUcmGZfJ4BheG1oXsCoMZN pCJRnY9BdsZPuFBaeP256WM uwLvU3HIRtonCrG4VgCZSfj WduOiB0 s3L3Mz8Hx8BhramqK1MfsFY gVqHyTjisOZz1R4DbHhtfmF I+LG38TBHnVH53LOn1RIR7t WxlPSdi THWfH3PteN9tRvWwJFCxHFO kOyc+PHRhYmxlIHdpZHRoPS acOHCrDsHrbLwtWU9lHw7cO GVyLWNv dLyprZFsHbDyr2qmKLXoNNm tFC9wgSyoU6XufDS3RJKvc1 h2Ht79V59rW8IacUZ+PGNvb CE7cVJ6 yD8rKiRmOuZ0XCaaG531WvC egATyWeejf2cmp1ctcVn4Op M6BTQrbxTlgJzdGVK2v1VbN p28A62h IHdpZHRoPSIxNSUiIHZhbGl adz7jhE9cZf9+TJOitIJ1xD J7sN8yVnWsBkS0DFeaO274S nRvcCIv Ibxym9ief0lliDk6MsGqAVG iwrVgqGhyJEL3o2LnSy36F5 PmbUzjx3OyQtb6uu34pEZqr 6F3hPP1 V0DcSLEfoolykZPteCmpMA6 jWYIhrvplOXYmdP1cMAEeQ8 v7OsAaPqN0XJnoU9FzweK6V GJvbGQg LDKskKMFqO7zoehac8nkbij jXkNePAWdDNk1RDp1BCCanN poXzTvJLH6WeZ2QVQ1iILjn B0eiRej jeqxfL6bHju+MTS4dIHcgZJ FOT7aLeoptCE+RRGvJUR0kO ikXOnoXQCruO5xVCNwN6n2Z iAwLjA1 QRtaV3KfxhU1MNKxoVPsAXZ pyCYTiL7ldhyre4sjqkjiWp BiGNCtPXt2OUu6TVSzgQqtP iBsZWZ0 UxW5IKB5nVTccR3jqJddbth rnE0rMvj+XfjyrBlyJXC3AZ y9P7UpAuj6SUIogSwoED9aw GFkZGlu Fq9fpUcusHsuMG8lJPOyuqq xa459CdEqv2ooSKQlqPHsKJ ehDIX7E71ni7P1JZWdHLSlP DP2cCG6 eY6olOhvrldfqXXerJsxmeA xxQbwPWtmDNtiN869SNHenQ ekOvOvUVy1K5IyPsq9QZCps GzxFU9h aWQdVPuvWn0puLuwdOxmNY5 aPVEjtzewr779MqGwi3enVW SkvOBzDOclRVS1E87bf8Q3Y CMwMDAw MSU4iQW5sT4qeXtnfvdgiXO mdDsgdmVydGljYWwtYWxpZ2 69RXZvcVfnKlCelVy2Z4PdH co3OXMq jOosXK6fsJIqHXobWu6lrVw xiFeuVK1kPDJnlcfwo451Vs Tyl7qcAPBhiADcREkiSQI1Y 91ca9O5 CIMwIDSzVXP3pXT4lP3qiAw nbjogbGVmdDsgdmVydGljYW hvCBazF176CXRkbEsuBpWit GllbnQg VOxkFHv5B7LuHsvamOL+PC9 5LBPzYU48tIHbeHLds7apsT h3OiGiVVAcEWD4sSchWZkjt 3JkZXIt T47ihIRvk2B8TSCwcAsgqHY jNsWoaCS8xF1rXNwsiusqj1 uyynnuAgmyh8hqjr51rA57Y 29sIHdp ZHRoPSIzMCUiIHZhbGlnbj0 ruO7cBe3+DLZfnYU4zKD1wN 6mWIPyNdU7GAutY566GfQso CIvPjxj l4esn1nypTg7ThQ4VOPtxnI qyXobZLD6x6InEa73W68cKN dpZHRoPSIyMCUiIHZhbGlnb l3poS6v Ii8+DJDlkED6pYA9jX9hSkE uGpJ7TKiuA348ZdOqgVWxSg uvR29tT9CwbET+OTOtXaf0P CBzdHls NX4zkYPhHSuoZq0pWKL4XmT zLqYqVNteY9AuRAItzmispd foxEI8IDMhDEUfuR33Cf6md DogMTBw lEJYeO2fituyu3gnaekgTmK bUXHnYQi6ZGv1AZQfbUpzGs PtKZC8IaC4UFV3uWKpsY1yj Glnbjog aU7iN1MnYIXlymuyYz38rC9 pGcKxVlI6WLpoCyl+Qk9MTE HVOvQJADOKEFJLYzzLM6WPA C4HSpd9 F9IbXui3XGWezLdcLR7xmQA wNXdwLz0jlOggmYqtVA3aLH AaopnvQGZkzB0qXXQjjLNlo DtnIW3g LTUijzbor164TbNjWAM9DII wkONbB1WfjC6wRzKrXDUsBH NlY1ShtHHcFNvwA248MUupH tQ7OAYc urFyZ7MqZPYmbXsbNdK3w2G 7Iu0hPL8xRP8hBLkgXR42MD 06oRNqo6E0eES5N2TtHWNjy mctcmln nTE7XACsXTZdjX33dIKpXTt zPc6uc2S6z158BPBpOXFmgY 74Zw4rqQihSANbvOKYkW7zd vkba3yu hrmqQhWzYFQdJNs7CNc7KHD xwZziCvCmIWC2QdI5AJK7sK ItxR0inWvzesexxL8wLls+M zQgWWVh ibC4D1AhWqw7GRQreEjlAG4 ngYRaSAblWf5ilEexqSfbMX 7bFMHpbrgjEPJgyW0qOVGdq HRvbTog TI7cBIYyvblbp237CbGwVSL 7LSFuqYTiH8RjpF4eMgPzBX UwIVDtB0PtbFEjXXpbV706R GxlZnQ7 VHPlpcZtK3TrWDEmeHoyFuU 3h1O7Bl6BGL8ROSD3J4PnMk i9FOSekWesWC4pkXYaATcvY p1kyOqh nNrvWB8cRXLamkjtQJElpW0 bSDWcbQSmeLmoJD2sGCOicw srk230BnWwUFM8WVJryUAnB 3OtfW4w QzErPGDnXSUvN7XqcVFmOSv eZ404OGsuOaV6CPFdknImG9 MgBHHobSanNiA1p7P8Pr7QQ DwvdGQ+ IT79om77Y9BzSqthTmj5FVT bSWI9pGA1wF1lEUBqNIcgp5 V7fKM6B8LaysYjfs5hx1dnA XBzZTog G57goJDjw6B3HPQirFU3ZZL kgTvqHbLzoR59Zvo+PGNvbG sjf1FyEvdyz6qup6cvvLz2A jMwJSIg uaChrZfkTOS2p5QyRk57T86 sIHdpZHRoPSIzMCUiIHZhbG ilmz2mbC8pKv7+GSWofFV0z JZ5nU5d TyKzIjD5OMhgT405RgDhqBV nTzpon9scs6fdpUv6OxAjCB RabgOukHrmTMX9d2QzZo78Y 2NvbGdy g2RnAkd0mh65tVQzf5D6cJM 6N6LlTGEpwdcuzVZcpHdnYN 6sWAViesbtJYGlzW6hXYRgH 4n6CuJm MzT7AJqoZ4XbmaK1MVAnbPH lOXBccJVDjG6pjapxg9rbvh hdHtQxIRKjWBn7OFl5YLCvf WduOiBs LJW7IjU5NWE0qNQdzD9rtJl fguvuzX1mRrs+PPr7x1etvT KbBZ7ckBR2TL55TE62bJGnc 3R3yBC4 J6BiOOFeviomamabfID2HEB yETJaeB33Rt8wtAzaFc5cER XrOHG7SSCjuWBcZ3XtjH7fK iAjMDAw MGYsU9AetAEyFMvkF420RQa zPtS5YVZoxhYrS5JkZGBprX ijYhH8b5Y8Ya7QFO96NZ47Z O18sJWu d9I0dAL4E3CvLJUrmggujsa ziHG5OPSpDUWzjZ76Ng9cgW saYs2iQFLaPVC7XYHvtCUbM 5HawL1z DvUmDBTbJOHfT9UydZLnJTx cD152KDjrSoX3RMCpyuSeA1 ZeEHCvpXqtGeP0q6E0Pj3XB e49MQ99 RO08lRPtq0P6zFU9E7ZfIJX tuxmqiejjeNY8CSXgEHTbnY 48Hh7deTvjGz6hENOzVHQ2O FRpbWVz U9EhqJ0pSzDnOTFaNLErF2M cgNSgYXppX736BCpxPuK2MX IygdDlH6EaWUHkoVtyYcD3m 1P8Ws7Y ZBpvcov9P9VzYzfjtMH+PC9 9WDCzHI23zEJgpZUjy2bdxY h0QrIlJFLyEMI1gLmmVPfep 3JkZXIt Y29 (more content not included)... [facility] Provider Orderson 01-17-2025 Provider Orders [id number]#1.0 0OTGTIFF Normal [facility] hCG Quantitativeon 5 hCG Quantitative 1201.8 mIU/mL High 0.0-0.6 [facility] Comment on above: Result Comment: Post -Menopausal Reference Range is: 0.1-11.6 mIU/mL Performed By: #### 7 [id number] #### [facility] (DEFAULT) [address] [place] [id number] QuantiFERON-TB Gold Pluson 0 09-21-2024 QuantiFERON-TB Gold Plus Negative Invalid Interpretation Code Negative [facility] Comment on above: Result Comment: No r esponse to M tuberculosis antigens detected. Infection with M tuberculosis is unlikely, but high risk individuals should be considered for additional testing (ATS/IDSA/CDC Clinical Practice Guidelines, 2017). The reference range is an Antigen minus Nil result of <0.35 IU/mL. Chemiluminescence immunoassay methodology Performed At: [facility] [id number] Sujata Lanier PhD Ph:[phone] Performed By: #### 1 [id number] #### [facility] (DEFAULT) [address] [place] [id number] QuantiFERON Incubation Incubation performed. Invalid Interpretation Code [facility] Comment on above: Result Comment: Perf ormed At: [facility] [id number] Sujata Lanier PhD Ph:[phone] Performed By: #### 1 [id number] #### [facility] (DEFAULT) [address] [place] [id number] HBSab Qnt LCon 09-20-2024 Hep B Surf Ab Quant LC 8190.0 mIU/mL Invalid Interpretation Code Immunity>10 [facility] Comment on above: Result Comment: Resu lts confirmed on dilution. Status of Immunity Anti-HBs Level Inconsistent with Immunity 0.0 - 10.0 Consistent with Immunity >10.0 Performed At: [facility] [address] [place], [place] [id number] Sujata Lanier PhD Ph:[phone] Performed By: #### 1 [id number] #### [facility] (DEFAULT) [address] [place] [address] Lab - Toxicology Resultson 0 09-20-2024 Lab - Toxicology Results [id number]#[id number] TGTIFF Normal [facility] Measles/Mumps/Rubella Immuni ty LCon 09-20-2024 Mumps Abs, IgG LC <9.0 Low Immune >10.9 [facility] Comment on above: Result Comment: Nega tive <9.0 Equivocal 9.0 - 10.9 Positive >10.9 A positive result generally indicates past exposure to Mumps virus or previous vaccination. Performed At: [facility] [address] [place], [place] [id number] Sujata Lanier PhD Ph:[phone] Performed By: #### 1 [id number] #### [facility] (DEFAULT) [address] [place] [address] Rubella Antibodies, IgG LC 1.41 index Invalid Interpretation Code Immune >0.99 [facility] Comment on above: Result Comment: Non- immune <0.90 Equivocal 0.90 - 0.99 Immune >0.99 Performed By: #### 1 [id number], [id number], [id number] #### [facility] (DEFAULT) [address] [place] [address] Rubeola Ab, IgG, EIA LC 56.3 AU/mL Invalid Interpretation Code Immune >16.4 [facility] Comment on above: Result Comment: Nega tive <13.5 Equivocal 13.5 - 16.4 Positive >16.4 Presence of antibodies to Rubeola is presumptive evidence of immunity except when acute infection is suspected. Performed By: #### 1 [id number], [id number], [id number] #### [facility] (DEFAULT) [address] [place] [address] Provider Orderson 09-19-2024 Provider Orders [id number]#[id number] TGTIFF Normal [facility] Triage Panel 10on 09-19-2024 Drug Screen Complete Collected Normal [facility] Comment on above: Performed By: #### 2 [id number] #### [facility] (DEFAULT) [address] [place] [address] Family Medicine Office/Clini c Noteon 04-04-2024 Family Medicine Office/Clinic Note Family Medicine Office/Clinic Note HPI Staff Susana is a 33 year old female presenting with Establish Care: History: Any previous diagnosis: Impetigo History of seeing any specialist: none When was your last doctors visit: January 2024 Last provider: Dr. Gardner Any recent labs: 2022 Health Maintenance UTD: Colonoscopy: NA Mammogram: NA Pelvic/Pap: January 2024 Acute: Current issues/complaints: none History of Present Illness pt presents today to establish care Review of Systems PHQ Score Initial Depression Screen Score: 0 SCORE Physical Exam General: alert, no acute distress ENMT: oral mucosa moist, no pharyngeal erythema or exudate Cardiovascular: regular rate and rhythm, normal peripheral perfusion Respiratory: Lungs CTA, respirations non labored Extremities: no deformity, no trauma Neurological: oriented x 4, LOC appropriate for age, CN II-XII intact, motor strength equal & normal bilaterally, speech normal Assessment/Plan 1. Establishing care with new doctor, encounter for (Z76.89: Persons encountering health services in other specified circumstances) pt presents today to establish care. pt is doing well. Had a baby 10 months ago. will need labs for work insurance. she will bring the order to be signed at a later time. all questions answered. RTC as needed 2. Non-smoker (Z78.9: Other specified health status) continue not smoking 3. Body mass index [BMI] 35.0-35.9, adult (Z68.35: Body mass index [BMI] 35.0-35.9, adult) BMI education given 4. Class 2 obesity due to excess calories with body mass index (BMI) of 35.0 to 35.9 in adult (E66.09: Other obesity due to excess calories) see above Follow-up No qualifying data available Problem List/Past Medical History Ongoing Establishing care with new doctor, encounter for Historical No qualifying data Procedure/Surgical History Hysterosalpingogram (2021). Medications No active medications Allergies No Known Medication Allergies Social History Tobacco Never (less than 100 in lifetime) Tobacco Use:. Never Smokeless Tobacco Use:. Cigarettes, 04/04/2024 Normal [facility] Comment on above: Result Comment: Elec tronically Signed By: Vera Eubanks\.br\Date and Time Signed: 04/04/24 16:26 EDT HEP B SURFACE ANTIGEN SCREEN on 12-08-2022 HBsAg Screen Negative Normal Negative [facility] Comment on above: Performed By: #### H BSANS #### [facility] [address] [place] [address] Dr. Desmond Sow HEPATITIS C VIRUS AB W/ REFL EX QUANTon 12-08-2022 HCV AB Non-Reactive Normal Non Reactive [facility] Comment on above: Performed By: #### H CVPCRR #### [facility] [address] [place] [address] Dr. Desmond Sow Interpretation: Comment Normal [facility] Comment on above: Result Comment: Not infected with HCV unless early or acute infection is suspected (which may be delayed in an immunocompromised individual), or other evidence exists to indicate HCV infection. Performed By: #### H CVPCRR #### [facility] [address] [place] [address] Dr. Desmond Sow HIV 1 AND 2 WITH REFLEXon HIV Screen 4th Generation wRfx Non-Reactive Normal Non Reactive [facility] Comment on above: Result Comment: HIV Negative HIV-1/HIV-2 antibodies and HIV-1 p24 antigen were NOT detected. There is no laboratory evidence of HIV infection. Performed By: #### H IV12 #### [facility] [address] [place] [address] Dr. Desmond Sow RPR QUANTon 12-08-2022 Rapid Plasma Reagin, Quant Non-Reactive Normal NonRea<1:1 [facility] Comment on above: Result Comment: Plea se Note: This test does not meet current guidelines for screening and diagnosis of syphilis. This test is intended for following treatment response in patients being treated for syphilis infection. To screen for syphilis infection, a reflex cascade that includes both RPR and a treponema-specific assay should be utilized, such as Treponema pallidum (Syphilis) Screening [place] (236939) or Rapid Plasma Reagin (RPR) Test With Reflex to Quantitative RPR and Confirmatory Treponema pallidum Antibodies (890786). Performed By: #### T SH #### [facility] [address] [place] [address] Dr. Desmond Sow RUBELLA AB IGGon 12-08-2022 Rubella Antibodies, IgG 1.18 index Normal Immune >0.99 [facility] Comment on above: Result Comment: Non- immune <0.90 Equivocal 0.90 - 0.99 Immune >0.99 Performed By: #### R UBIGG #### [facility] [address] [place] [address] Dr. Desmond Sow BOX TEST SENT OUTon 12-08-19 23 SENT TO REF LAB 12/07/2022 Normal [facility] Comment on above: Performed By: #### T SH #### [facility] [address] [place] [address] Dr. Desmond Sow CBC AUTO DIFFon 12-07-2022 BASO # 0.1 103/ul Normal 0.0-0.1 [facility] Comment on above: Performed By: #### T SH #### [facility] [address] [place] [address] Dr. Desmond Sow Basophils/100 WBC (Bld) 0.8 % Normal 0.2-2.0 [facility] Comment on above: Performed By: #### T SH #### [facility] [address] [place] [address] Dr. Desmond Sow EO # 0.3 103/ul Normal 0.0-0.7 [facility] Comment on above: Performed By: #### T SH #### [facility] [address] [place] [address] Dr. Desmond Sow Eosinophils/100 WBC (Bld) 2.8 % Normal 0.9-7.0 [facility] Comment on above: Performed By: #### T SH #### [facility] [address] [place] [address] Dr. Desmond Sow Erythrocyte distribution width (RBC) [Ratio] 14.5 % Normal 11.0-15.0 [facility] Comment on above: Performed By: #### T SH #### [facility] [address] [place] [address] Dr. Desmond Sow Hematocrit (Bld) [Volume fraction] 40.1 % Normal 36.0-48.0 [facility] Comment on above: Performed By: #### T SH #### [facility] [address] [place] [address] Dr. Desmond Sow Hemoglobin (Bld) [Mass/Vol] 13.1 g/dL Normal 12.0-16.0 [facility] Comment on above: Performed By: #### T SH #### [facility] [address] [place] [address] Dr. Desmond Sow IG # 0.05 10e3/ul Critically high 0.00-0.03 [facility] Comment on above: Performed By: #### T SH #### [facility] [address] [place] [address] Dr. Desmond Sow IG % 0.4 % Normal 0.0-0.5 [facility] Comment on above: Performed By: #### T SH #### [facility] [address] [place] [address] Dr. Desmond Sow LYMPH # 2.5 103/ul Normal 1.2-3.8 [facility] Comment on above: Performed By: #### T SH #### [facility] [address] [place] [address] Dr. Desmond Sow Lymphocytes/100 WBC (Bld) 21.9 % Normal 20.5-60.0 [facility] Comment on above: Performed By: #### T SH #### [facility] [address] [place] [address] Dr. Desmond Sow MANUAL DIFF REQ NO Normal [facility] Comment on above: Performed By: #### T SH #### [facility] [address] [address] [address] Desmond Sow MCH (RBC) [Entitic mass] 27.3 pg Normal 26.7-34.0 [facility] Comment on above: Performed By: #### T SH #### [facility] [address] [place] [address] Dr. Desmond Sow MCHC (RBC) [Mass/Vol] 32.7 g/dL Normal 29.9-35.2 [facility] Comment on above: Performed By: #### T SH #### [facility] [address] [place] [address] Dr. Desmond Sow MCV (RBC) [Entitic vol] 83.7 fL Normal 81.0-99.0 [facility] Comment on above: Performed By: #### T SH #### [facility] [address] [place] [address] Dr. Desmond Sow MONO # 0.8 103/ul Normal 0.3-0.8 [facility] Comment on above: Performed By: #### T SH #### [facility] [address] [place] [address] Dr. Desmond Sow Monocytes/100 WBC (Bld) 7.0 % Normal 1.7-12.0 [facility] Comment on above: Performed By: #### T SH #### [facility] [address] [place] [address] Dr. Desmond Sow NEUT # 7.5 103/ul Critically high 1.4-6.5 [facility] Comment on above: Performed By: #### T SH #### [facility] [address] [place] [address] Dr. Desmond Sow Neutrophils/100 WBC (Bld) 67.1 % Normal 43.0-75.0 [facility] Comment on above: Performed By: #### T SH #### [facility] [address] [place] [address] Dr. Desmond Sow Platelet mean volume (Bld) [Entitic vol] 9.9 fL Normal 9.5-13.5 [facility] Comment on above: Performed By: #### T SH #### [facility] [address] [address] [address] Desmond Sow PLT 249 103/ul Normal 150-450 [facility] Comment on above: Performed By: #### T SH #### [facility] [address] [place] [address] Dr. Desmond Sow RBC 4.79 106/ul Normal 4.20-5.40 [facility] Comment on above: Performed By: #### T SH #### [facility] [address] [address] [address] Desmond Sow WBC 11.2 103/ul Critically high 4.0-11.0 [facility] Comment on above: Performed By: #### T SH #### [facility] [address] [place] [address] Dr. Desmond Sow CULTURE URINEon 12-07-2022 CULTURE URINE Culture Observations : NO GROWTH. Normal [facility] Comment on above: Performed By: #### T SH #### [facility] [address] [place] [address] Dr. Desmond Sow GLYCOHEMOGLOBIN A1Con 2022 ADA RECOMMENDATION SEE BELOW Normal [facility] Comment on above: Result Comment: ADA RECOMMENDED LIMIT 4.0 - 6.0 ADA THERAPEUTIC TARGET < 7.0 ACTION SUGGESTED > 7.0 Performed By: #### T SH #### [facility] [facility] [address] [place] [address] Dr. Desmond Sow Glucose [Mass/Vol] 91 mg/dL Normal [facility] Comment on above: Performed By: #### T SH #### [facility] [address] [place] [address] Dr. Desmond Sow HbA1c (Bld) [Mass fraction] 4.8 % Normal 4.5-6.2 [facility] Comment on above: Performed By: #### T SH #### [facility] [address] [place] [address] Dr. Desmond Sow TSHon 12-07-2022 TSH 1.357 uIU/mL Normal 0.358-3.740 [facility] Comment on above: Performed By: #### T SH #### [facility] [address] [address] [address] Desmond Sow TYPE AND SCREENon 12-07-2022 TYPE AND SCREEN Negative Normal [facility] Comment on above: Performed By: #### T SH #### [facility] [address] [place] [address] Dr. Desmond Sow US PREG TVon 11-30-2022 [...] MOUSTAPHA YOO Date: 2022-11-30 15:53 Normal [facility] INSULINon 08-28-2022 Insulin 7.2 uIU/mL Normal 2.6-24.9 [facility] Comment on above: Performed By: #### T SH #### [facility] [address] [place] [address] Dr. Desmond Sow PROGESTERONEon 08-28-2022 Progesterone 19.1 ng/mL Normal [facility] Comment on above: Result Comment: Foll icular phase 0.1 - 0.9 Luteal phase 1.8 - 23.9 Ovulation phase 0.1 - 12.0 First trimester 11.0 - 44.3 Second trimester 25.4 - 83.3 Third trimester 58.7 - 214.0 Postmenopausal 0.0 - 0.1 Performed By: #### P INGRID #### [facility] [address] [place] [address] Dr. Desmond Sow ASYMPTOMATIC COVID-19 ANTIGE Non 08-24-2022 EUA Statement SEE BELOW Normal [facility] Comment on above: Result Comment: [...] sooner. Performed By: #### C VDAGA #### [facility] [address] [place] [address] Dr. Desmond Sow SARS-CoV-2 (COVID-19) RNA JES+probe Ql (Unsp spec) Negative Normal NEGATIVE [facility] Comment on above: Result Comment: Nega tive results are presumptive. They do not preclude infection and should not be used as the sole basis for treatment decisions. Additional confirmatory testing by a molecular method should be considered. Performed By: #### C VDAGA #### [facility] [address] [place] [address] Dr. Desmond Sow Covid-19 PCR (CVDTB)on 07-23 SARS-CoV-2 (COVID-19) RNA JES+probe Ql (Unsp spec) Detected Critically abnormal NOT DETECTED [facility] Comment on above: Result Comment: This test is not yet approved or cleared by the [place] FDA. When there are no FDA-approved or cleared tests available, and other criteria are met, FDA can make tests available under an emergency access mechanism called an Emergency Use Authorization (EUA). The EUA for this test is supported by the [place] of Health and Human Service's declaration that [...] used). Performed By: #### C VDTB #### [facility] [address] [place] [address] Dr. Desmond Sow INFLUENZA A AND B AGon 08-19 INFLUANE SEE BELOW Normal [facility] Comment on above: Result Comment: Nega tive for Flu A protein angiten. Infection due to Flu A cannot be ruled out. Flu A angiten in the sample may be below the detection limit of the test. Performed By: #### I NFLUAB #### [facility] [address] [place] [address] Dr. Desmond [facility] SEE BELOW Normal [facility] Comment on above: Result Comment: Nega tive for Flu B protein antigen. Infection due to Flu B cannot be ruled out. Flu B antigen in the sample may be below the detection limit of the test. Performed By: #### I NFLUAB #### [facility] [address] [place] [address] Dr. Desmond Sow INFLUENZA A AG Negative Normal NEGATIVE SEE COMMENT [facility] Comment on above: Performed By: #### I NFLUAB #### [facility] [address] [place] [address] Dr. Desmond Sow INFLUENZA B AG Negative Normal NEGATIVE SEE COMMENT [facility] Comment on above: Performed By: #### I NFLUAB #### [facility] [address] [place] [address] Dr. Desmond Sow PREG QUANT HCGon 01-15-2022 HCG QUANT <1 Normal [facility] Comment on above: Performed By: #### T SH #### [facility] [address] [place] [address] Dr. Desmond Sow HCG RANGE SEE BELOW Normal [facility] Comment on above: Result Comment: 5-50 0-1 WEEK 40-300 1-2 WEEKS 100-1,000 2-3 WEEKS 500-6,000 3-4 WEEKS 5,000-200,000 1-2 MONTHS 10,000-100,000 2-3 MONTHS 3,000-50,000 2ND TRIMESTER 1,000-50,000 3RD TRIMESTER Performed By: #### T SH #### [facility] [address] [address] [address] Desmond Sow XR HYSTEROSALPINGO EXPon XR [...] by: MOUSTAPHA YOO Date: 2022-01-15 12:39 Normal [facility] PROGESTERONEon 01-06-2022 Progesterone 21.4 ng/mL Normal [facility] Comment on above: Result Comment: Foll icular phase 0.1 - 0.9 Luteal phase 1.8 - 23.9 Ovulation phase 0.1 - 12.0 First trimester 11.0 - 44.3 Second trimester 25.4 - 83.3 Third trimester 58.7 - 214.0 Postmenopausal 0.0 - 0.1 Performed By: #### P INGRID #### [facility] [address] [address] [address] Desmond Sow Vital Signs Date Time Vital Sign Value Performing Clinician Faci lity 03-19-2024 16:44-0400 Body height 170.18 cm [facility] 03-19-2024 16:44-0400 Body mass index (BMI) [Ratio] 33.8 kg/m2 [facility] 03-19-2024 16:44-0400 Body temperature 98.5 [degF] [facility] 03-19-2024 16:44-0400 Body weight 97.97 kg [facility] 03-19-2024 16:44-0400 Diastolic blood pressure 96 mm[Hg] [facility] 03-19-2024 16:44-0400 Heart rate 70 /min [facility] 03-19-2024 16:44-0400 Respiratory rate 18 /min [facility] 03-19-2024 16:44-0400 SaO2% (BldA) [Mass fraction] 96 % [facility] 03-19-2024 16:44-0400 Systolic blood pressure 137 mm[Hg] [facility] 03-07-2024 15:36-0400 Body height 170.18 cm [facility] 03-07-2024 15:36-0400 Body mass index (BMI) [Ratio] 32.8 kg/m2 [facility] 03-07-2024 15:36-0400 Body temperature 98 [degF] [facility] 03-07-2024 15:36-0400 Body weight 95.25 kg [facility] 03-07-2024 15:36-0400 Diastolic blood pressure 98 mm[Hg] [facility] 03-07-2024 15:36-0400 Heart rate 75 /min [facility] 03-07-2024 15:36-0400 Respiratory rate 16 /min [facility] 03-07-2024 15:36-0400 SaO2% (BldA) [Mass fraction] 97 % [facility] 03-07-2024 15:36-0400 Systolic blood pressure 147 mm[Hg] [facility] Encounters Encounter Date Encounter Type Care Provider Facility Start: 02-19-2025 End: 02-19-2025 Bamboo flowsheet Fannie Jj DO Work Phone: [facility] Start: 02-19-2025 End: 02-19-2025 Bamboo flowsheet Fannie Jj DO Work Phone: [facility] Start: 01-17-2025 End: 01-17-2025 ambulatory FANNIE GARDNER Facility:[facility] Start: 09-19-2024 End: 09-19-2024 ambulatory Severiano Malcolm Facility:[facility] Start: 04-04-2024 End: 04-04-2024 ambulatory Vera Meng Facility:[facility] Start: 03-19-2024 End: 03-19-2024 ambulatory [facility] Work Phone: Start: 03-19-2024 End: 03-19-2024 Patient encounter procedure [facility] Work Phone: Start: 03-19-2024 ambulatory Vera Meng Facility:[facility] Start: 03-07-2024 End: 03-07-2024 ambulatory [facility] Work Phone: Start: 03-07-2024 End: 03-07-2024 Patient encounter procedure [facility] Work Phone: Start: 02-14-2024 End: 02-14-2024 ambulatory FANNIE GARDNER Not Available Start: 09-15-2023 End: 09-15-2023 ambulatory FAMILIA GARBER Not Available Start: 07-25-2023 End: 07-25-2023 ambulatory FANNIE GARDNER Not Available Start: 12-07-2022 End: 12-08-[address] FANNIE GARDNER . Facility: Start: 11-30-2022 End: 12-01-[address] FANNIE GARDNER . Facility: Start: 08-27-2022 End: 08-28-[address] GODFREY MARTÍNEZ Facility: Start: 08-24-2022 End: 08-24-2022 ambulatory TODD BERKOWITZ Facility: Start: 08-19-2022 End: 08-19-2022 ambulatory TODD BERKOWITZ Facility:[facility] Start: 01-15-2022 End: 01-15-[address] FANNIE GARDNER . Facility: Start: 01-04-2022 End: 01-05-[address] FANNIE GARDNER . Facility: Payers Date Payer Category Payer Unknown 2024 Private Health Insurance [employer] [id number] 2022 Unknown [id number] 2019 Unknown [id number] 1990 Unknown [id number] [id number]. 593 1990 Unknown [id number] 2.16.840.1.866789.3.579.2. 593 1990 Unknown [id number] 2.16.840.1.435457.3.579.2. 593 1990 Unknown [id number] 2.16.840.1.533735.3.579.2. 593 1990 Unknown [id number] 2.16.840.1.867959.3.579.2. 593 1990 Unknown [id number] 2.16.840.1.575750.3.579.2. 593 1990 Unknown [id number] 2.16.840.1.940043.3.579.2. 593 1990 Unknown [id number] 2.16.840.1.297571.3.579.2. 1259 1990 Unknown [id number] 2.16.840.1.263142.3.579.2. 1259 1990 Unknown [id number] 2.16.840.1.376597.3.579.2. 1259 1990 Unknown [id number] 2.16.840.1.819756.3.579.2. 727 1990 Unknown [id number] [id number]. 718 Social History Date Type Detail Facility Tobacco smoking status INIS Unknown if ever smoked [facility] Work Phone: Start: 1990 Sex Assigned At Female F [facility] Start: 03-19-2024 Tobacco smoking status INIS Never smoked tobacco (finding) [facility] Tobacco smoking status INIS Tobacco smoking consumption unknown [facility] Start: 1990 Sex assigned at Not on file [facility] Gender identity [facility] are Goals Date Patient Goal Desired Activity /State Personal health goal Evaluation note Note Date & Type Note Facility Evaluation note No assessment information availa ble [facility] Work Phone: Evaluation note Note Date & Type Note Facility Evaluation note Diagnosis Onset Date Contact dermatitis acute [facility] Work Phone: Summary Purpose Family History Relationship Condition Age at Onset Recorded Date/T pj mother Heart disease Unknown Advance Directives Advance Directive Response Recorded Date/ Time Advance Directives No March 07 3:28pm Chief Complaint and Reason for Visit Chief Complaint Rash on face Chief Complaint Rash on face Rash on upper lip Reason for Visit Contact dermatitis Additional Source Comments INFORMATION SOURCE (unrecogn ized section and content) DATE CREATED AUTHOR 12/12/2022 [facility] DATE CREATED AUTHOR AUTHOR'S ORGANIZ ATION 02/15/2024 [facility] EPIC DATE CREATED AUTHOR AUTHOR'S ORGANIZ ATION 04/06/2024 [facility] DATE CREATED AUTHOR AUTHOR'S ORGANIZ ATION 02/04/[address] [facility] Care Teams (unrecognized sec tion and content) Team Status: Active Member Role Status Dates NON STAFF Primary Care Provider Active Team Status: Inactive Member Role Status Dates Gretchen Wilks APRN Attending Provider Active Start: March 07, 2024 End: March 07, 2024 NON STAFF Primary Care Provider Active Start: March 07, 2024 End: March 07, 2024 Team Status: Inactive Member Role Status Dates NON STAFF Primary Care Provider Active Start: March 19, 2024 End: March 19, 2024 Gretchen Wilks APRN Attending Provider Active Start: March 19, 2024 End: March 19, 2024 Goals (unrecognized section and content) Goals may be documented in a n alternate sectionGoals may be documented in an alternate section FOR RECORDS PERTAINING TO PATIENTS WHO ARE [...] BE BASED ON THE PRIMARY CLINICAL RECORDS. [facility] [facility]. provides no warranty or guarantee of the accuracy or completeness of information in this document.
[2025-02-25 16:08] LABS: Age Gdln ACOG Testing Note (.); IGP, Aptima HPV, rfx 16/18,45 Note (.)
== END 2025-02-19 19:03 | disposition home or self-care (01) ==
LOC: LAB 19:02
PROVIDERS: Visit Provider Obstetrics & Gynecology
DX: Z01.419 Encounter for gynecological examination (general) (routine) without abnormal findings (principal)
CPT/HCPCS: 87624; 88175

== ENCOUNTER 2025-06-03 15:14 | Outpatient (REF) | payer OTHER, SELFPAY ==
--- OUTSIDE RECORDS SUMMARY | 2025-06-03 15:19 | XMS_ITS | CCD ---
Author Organization [facility] Care Team Providers Care Artifacts Conservator Name Role Phone JJ ., DR GRECO Admitting Unavailable JJ ., DR GRECO Attending Unavailable REQUEST, NONE LISTED Primary Care Unavaila ble JJ ., DR GRECO Consulting Unavailable ZIEBER, DR FAVIO Pepper Consulting Unavailable SHO, CHARLENE Admitting Unavailable SHO, CHARLENE Attending Unavailable REQUEST, NONE LISTED Primary Care Unavaila ble SHO, CHARLENE Consulting Unavailable SHO, CHARLENE Admitting Unavailable SHO, CHARLENE Attending Unavailable REQUEST, NONE LISTED Primary Care Unavaila ble SHO, CHARLENE Consulting Unavailable MAURICIO, DR DONAHUE Admitting Unavailable MAURICIO, DR DONAHUE Attending Unavailable REQUEST, NONE LISTED Primary Care Unavaila ble MAURICIO, DR DONAHUE Consulting Unavailable JJ ., DR GRECO Admitting Unavailable JJ ., DR GRECO Attending Unavailable REQUEST, NONE LISTED Primary Care Unavaila ble JJ ., DR GRECO Consulting Unavailable ZIEBER, DR FAVIO Pepper Consulting Unavailable JJ ., DR GRECO Admitting Unavailable JJ ., DR GRECO Attending Unavailable REQUEST, NONE LISTED Primary Care Unavaila ble JJ ., DR GRECO Consulting Unavailable JJ ., DR GRECO Admitting Unavailable JJ ., DR GRECO Attending Unavailable REQUEST, NONE LISTED Primary Care Unavaila ble JJ ., DR GRECO Consulting Unavailable TaqueriaVera Attending Unavailable Unavailable Primary Care Provider Unavailabl e JJFANNIE R Admitting Unavailable Taqueria, Vera L Primary Care Unavailable JJFANNIE Attending Unavailable Taqueria, Vera L Primary Care Unavailable Severiano Malcolm Attending Unavailable Severiano Malcolm Admitting Unavailable Taqueria, Vera Cha Primary Care Unavailable JJ, FANNIE R Admitting Unavailable JJ, FANNIE R Attending Unavailable JJ, FANNIE R Admitting Unavailable TaqueriaVera bartlett Primary Care Unavailable JJ, FANNIE R Attending Unavailable JJ, FANNIE R Admitting Unavailable Taqueria, Vera L Primary Care Unavailable JJ, FANNIE R Attending Unavailable JJ, FANNIE Attending Unavailable JJ, FANNIE Attending Unavailable JJ, FANNIE Attending Unavailable Allergies Allergy Classification Reported Allergen(s) Allergy Type Date of Onset Reaction(s) Facility (1 source) No Known Medication Allergies; Translations: [No Known Medication Allergies] Propensity to adverse reactions (disorder) [facility] Repository Medications Current Medications Medication Drug Class(es) Dates Sig (Normalized) Sig (Original) [place] (No Known Home Meds) (1 source) Start: 03-19-2024 [place] (No Known Home Meds) Active March 19, 2024 12:00am ondansetron 4 mg disintegrating oral tablet (3 sources) Serotonin-3 Receptor Antagonist Start: 04-29-2025 End: 05-29-2025 take 1 tablet by mouth every six hours for nausea ondansetron ODT (Zofran-ODT) 4 MG disintegrating tablet Indications: Nausea and vomiting in ([facility]) Take 1 tablet (4 mg) by mouth every 6 (six) hours if needed for nausea or vomiting 30 tablet 2 04/29/2025 05/29/2025 Active Zzsqwgjw-Qed-Xa-FA ( 1 + IRON PO) (9 sources) Natdorbh-Rej-Ik-FA ( 1 + IRON PO) Take 1 [...] [Unspecified contact dermatitis, unspecified cause] 03-07-2024 Episodic Hemorrhage during ; abruptio placenta; placenta previa (2 sources) Subchorionic hematoma; Translations: [Other hemorrhage in early ] 05-06-2025 Episodic Menstrual disorders (6 sources) Irregular menstruation, unspecified; Translations: [Missed period] Onset: 01-08-2022 Chronic Other endocrine disorders (4 sources) Ovarian dysfunction, unspecified; Translations: [OVARIAN DYSFUNCTION UNSPECIFIED] Onset: 08-27-2022 Chronic Other endocrine disorders (3 sources) Polycystic ovary syndrome; Translations: [Polycystic ovarian syndrome] 02-19-2025 Chronic Other endocrine disorders (2 sources) Disorder of endocrine system; Translations: [Endocrine disorder, unspecified] 02-19-2025 Episodic Other female genital disorders (3 sources) Polyp of corpus uteri; Translations: [Polyp of corpus uteri] 02-19-2025 Episodic Other and delivery including normal (9 sources) Encounter for supervision of other normal , first trimester; Translations: [Encounter for supervision of normal , unspecified, first trimester] Onset: 12-06-2022 Episodic Other screening for suspected conditions (not mental disorders or infectious disease) (3 sources) Encounter for other screening for genetic and chromosomal anomalies; Translations: [Patient encounter status] Onset: 12-12-2022 05-06-2025 Episodic Residual codes; unclassified (1 source) 9 weeks gestation of ; Translations: [9 WEEKS GESTATION OF ] Onset: 12-06-2022 Episodic Residual codes; unclassified (2 sources) Gestation period, 12 weeks; Translations: [12 weeks gestation of ] 05-06-2025 Episodic Unclassified (3 sources) CONTACT W/AND (SUSP) EXPOS COVID-19; Translations: [CONTACT W/AND (SUSP) EXPOS COVID-19] Onset: 08-27-2022 Unclassified (9 sources) OB Reminders Onset: 02-23-2023 02-23-2023 Viral infection [...] Test Name Value Interpretation Reference Range Facility US OB LIMITED 1+ FETUSESon 0 05-20-2025 US OB LIMITED 1+ FETUSES FINDINGS: Comparison made with prior examination of April 12, 2025. Single viable intrauterine with normal cardiac activity (152 mpm) now identified. No evidence of a subchorionic hemorrhage or cervical dilatation, placenta developing posteriorly. Gestational age of 14 weeks, 0 days with an estimated delivery date of November 18, 2025. IMPRESSION: Single viable intrauterine , cardiac activity 152 bpm. TRANSCRIBED BY: ELECTRONICALLY SIGNED BY: Shane Leslie MD Normal Not Available Comment on above: Order Comment: US OB PLACENTA W US OB TRANSVAGINAL Estimated Date of Delivery: 11/18/25 Gestational Age as of 05/17/2025: 13w4d Coding Summaryon 05-09-2025 Coding Summary HTMLBase 64 IwoipbzzLLp3dZc+PGhlY WQ+ME6QKOEmU72efYBxnN 4tF9JDBZnLAouaCUEPGKh POdSrrtRlCW9qqERiOTTa IC8+VI0fVYJkFoyaaTGqh 5B9iOU8Y82upe5vYSjeiE H7IBZfBwIzjekyj7xdmGx 6IDcuNmluOyBt AXLrtY77WSS4bI80Jn76w JFeyBVpy4wmmYw3IrVnKR AlMRW4vMurLWlfq3JdAMW tM10hbAMbi6N0 YTAxzSbgnFYbWjAzdGO0q N4gJRzwkeyqs9zuwcdbPe e2ka83pKUrp7X9uRL6G4X fwzC3EDXpfOSs JzprgZYDkN9ihmbvn8koz hcwUyLhGYBkYNa5APx2KK KyvUquJeSaXX64CLX1OZQ opqLjU3CqBFTc jKzkBsX5k3C0Vl7YM9JML kikK7MQLEDZCMizgXU+PC 08al37V7SaBjruTko1ISO qDTT9kQD2yW4i QKQnYAjfw5C1yFJ7S5Xdm kDdkf6ma4jxCPAbXYqpK5 7eiVXyo8Q4RHPyaHR4OZY plBeqIdGljC55 Oyc+VNZmuObhu8PpCipct 3onr2kvxUk0RdypMKTdup QdqBpiAEE0h9NeGt6zGIS ekPX7kYX4bH1n HnDwQuQ4MAnaV348FoYjm RIfBiwsY29uV7JcfEM+PH TzKsn3SHAlnLpzTP6wM7J hZGRpbmctbGVm jCvcYA3rQFSrrfapSWXlp C1dAEDzB8q9HpZaAiM2IT lhD6StJWQmeobiXo55nC8 fFaDrThZ7WJzb P8DpldO0IXWbvFXpFZwoT CF8Z26tr2X3XJYuSFFyPI Y7cOE7aE9seVeicxduaUV mdDsgdmVydGlj GTtqBIymP622EIMrdUhiG kNvZGluZyBEYXRlOiAgMD kvMTgvMjAyNTwvdGQ+PHR pPUA3iEccZNIx gIHcBCfnLj1rsHycvLinP B8tRRUokbbzENLnhI8kME ThqLXnaDpeMX2gSSGvgqd xg594EuLjRMK8 RXLlqCBfX0UwtX1rTzXgV RSaLCHhM2RyaESnZUdkF6 47HPerPoZ8OFUymwDtD5G sLWFsaWduOiB0 o4G5Qp2Re3HpilzcV6Qzi YKcShSjLibeQTh5T6UgHp wvdHI+WE55CBTmVY34QKk 5SJV2iNhhBKst BXIvV7XhfR7xPfFgAUKoD GRkOyc+PHRhYmxlIHdpZH RoPScxMDAlJyBzdHlsZT0 lIr4dUHFbZYBu qHtokGDdIoQwt8tqATEcS RbqMH4hbDesP4DmjQL5IO Deu5n6Cw78V65sF7NbdNY +HTYrrZS9aYT0 sE7iHoKxBfA5LAnkL080D nTpkUDgWreny1cnm6pheR s5RnM8KGEoqmEjlNcdPUS 5e2CgCp63F20e IHdpZHRoPSIxNSUiIHZhb Ptapb1ozO0vFw5+PGNvbC K7jPV5oH8cIhKoAsH1GXp iP716TaDowUOl Sxwfd6cpm2qrmTw2JvOjK BSxrgUfpZgfHUD3c3XbIg 15I3JaiTxwd9OaUnk3kq8 2rMKvh7D1sJT6 O1HgGQMfcnktfQQdfSmsO Z6mZXJxuxhxFBQmlF7kTO MqL9a6TbPjIaP8SHipL5O dcfK3NHZgzRMs FXRxyCBWgM9jdtuyr3isu iorXxEyYHWoKLk3QHz8UC UvqTzcHjOjWUZ0SnD7DWT 0mDDpdQ3cyVaa dnwtgR2tAev+ZCX3aIQch NRQLB0iMxtngSF+PHRkIH U3aSrxVVoqSRGmcK0yIUK dZ1t8TdExJkH5 UJujP4BfbpZ4OWCmoYMjF ITnqHVCmJ9otwmyk7sxkc oiOmMqKOTiNZw1NUj3LUB saWduOiBsZWZ0 TuQ6MVK5xASbzN7oyNewm qiihG3uMdb+QmlydGggRG I7QSm9F1NuYqe2RFFeaIg fFD0qyJZrVOtu Ad2haYmauXbrTS0aZLOxt xxxr482JzUed0wuFNCdyP BgSUupGSW4J88di5C0XOF oNOYtYGV9uJF2 zC3ncBcojlrtmNWnzXqts uMgfYtsIYjiTDnoT955LW PooKynYqKgOOg8X4LmZbj 9WHNedOuuNF6p rQYvEPjmPd1hxXnkdFnuC W0xONUrzxwyl266GwXzz3 rjNIEwzJCmBXijNXS4H91 oj6Q1OZSxWBTu HZZ5oGP4pE3qyKjezfjtx GVmdDsgdmVydGljYWwtYW edM185WFEdrJrzHkZtzMp 5Y9MaVns0RVGh sMuwCK7weWBbKIoyMm7bt HdcbFnsDQ9tHKGttqclp1 12NvIob9hgSZPaxRCwCJq gVHU9D52zs1E8 OJSnJIEiMKN8rEL0zT1nx GlnbjogbGVmdDsgdmVydG btVEpdHYzsB108TIAugSo nPlBhdGllbnQg VKjgUUx1B8TnTkgquWI+P K93RUGqPU74yZTfzYJcw0 pwcIv5BqJnXMMoTEV2rGh lIMfuf1QuHTQc F61scQWgg6G2ZQHbpXvxf LQrIxWsuCC3jK1pVJknrg fwp0hlbpdpVvisp2mdcv0 5sS09J50qQRkg ZHRoPSIzMCUiIHZhbGlnb f9ljH7aDv7+FBFnaGI7hN Z2qF9zVKDkMwA2MRreN99 9InRvcCIvPjxj z8obf3zwgCr0YcM5WISty vBqbSezSMO9g7GgXi59P6 9sIHdpZHRoPSIyMCUiIHZ keJjtho9eaW1p Ii8+TFHvwWD4wUL6bY4lW dCbVnB5HWpxX485BzQcfJ VkKusgH22jS5QqfUO+PHR lVpu7CTXdbYqe JC4vqZLrPNznGh2wXDX0D tJyGwReHJchO5DeDMNdww gntjifsXU8JHBzRJEbsQ6 7Ez8vpTjeLBDr aAGKhN7uvvdnn1ftrdbtN mEoBYMhZPv3LLf5SHPngD qvXfCwPFZ1FwL4LCF2mXK tlY0iiRasatvj nA6yU7ViYXRtmvyqBo75q Z4dCsVeVrI1PEsxGtp+Qk 9MTEVOQkFDSEVSLCBCUkl MG8WHXD4PXiz1 J7NzDuv0GJZikYncHE4yw EZnILtuFm0jgKrjgQqkRF 8sCMOsipjtYAEltG5dXXK tjAGweExjIO9r AMFeeinfx272AsYvOXH7L ZSwvAJpG7GyjT6gHeRvIN HaQFHeR5WiaXAtPOnyH21 1BUqyWpB4UTOw ohQvX3WhVQYbiGvwFjK4p 7W2Hy8dSO2wWW6eYUvjCH 49FE04nFHik1U8uMA3E2Q hZGRpbmctcmln fAA6GFDfHCCndX57gTSuG JqqPz1kb9B6w812FVMrER JxfL43Qn1joWmyVHRovMY VrO5jookik7bb llkoAcVzULAiFHw8HEg9L IPnlZavFhPnQSU2ZrV7EV F5uQBbmB2geRgxblfiqR6 wOyc+MzQgWWVh ktC2Z5JwTee0FZJqePszI L3xwVHaXAiqUl7yyWabxD feMR2lLGJfykjgOVBlgJ8 nLWJvdHRvbTog QQ6bNAAyipoan449KeByT JY5HLMozHXoZ3QxjW0yGh SnFWHwLSIfN1YbdGKlBZf dF831GKimMtA7 FYAklvHgK7OmRBKvyZtyJ kJ9j9C4Lo2MGS8ZZQN0U5 BvXoj1RUSpwLbaDH5owXU hTYcfQs1qtDwb aWevXQ3bFHXkgnanQYWia U5lQVXosDYgfCrwTP7hZO Mxlgwkv029XzZyCSA7GQO bcGUgN1BoqE7m UmVeZLWfVIHpF8FbpIPeY QrvR295CBvnMrU5OZRkyf XxY6KbZFKykYdzNqC3r5A 6Nk5FSQtaqKQ+ RK54cs83K7ItHldbHkq7F DDcTMK5gEV1cE2qBTAjVN kuf0E5zRK4E1BgunQjhj9 ah7oqIBUxNCza N59hbIAli5M8TKVmyDM9A WTfnThjEsArnU12Vzi+PG WxkMudr4RgPfymv1exv6d jpPb5YhKbPVIv ebFkjPhsBCN8g5YbOl06F 29sIHdpZHRoPSIzMCUiIH KuzZewsh7wrL4zLw3+PGN uyFC7gFV5dE1g MfAiUfS9QMwqX985IjLqm LOgYaudb7jfk6mlrBo2Lb VbIRYeycSkxJlwGEJ4m0G tWv65B0BupYdj h2DgQho4nc25wXNka4T4c UV1S0YzURFeokdqjZLexN nfFJ6fFYYbjvkfNVEkbX0 eYLHgZ6o9MuEp AvV7DKipZ3HxuvA9FUXkj UUfBOQcfFZKzF3usyldd7 wkndwiQsFgMSPpSBy3DKh 0LWFsaWduOiBs ATU7HbP3HYJ9nEMulX5vt ZvoabaxiT1bShg+UGh5c2 qjgCPbVD2qiNK7GU27NS8 5fYZjg1F8hKS0 R2FjZZRifdxpkxqpdOW1D CXpWAGlxD33Qo5neLceEz 4oVTJcSPW0TYWosKPlC6B vbV7oUsCwSYSe WXDlM2NazGGqUTzxV679X JgnPiC0OBQhrzMnX3OfZO IopUldQzX3d1A2Yw4MWZ3 1JQ44IQ53oXHe u7U8zJI5Q6XgOYFkfukgz dmtoJU2WONmVIElqR87Ae 5pkWdaWd3lUCAtNIA5BEU drXCvL2VarA9x VfNjHBOgEOFkT7WtrGXgJ VtaV446DVtgQfA5PRXzmk MfT1CgDHMefNtgEvG9i3D 5Wu8RTi41QI28 YA85tXVbk5A2bRA0S6KiI REctqddzgedhAU5ZAZlOX JfqR31Zq5uqLxfNj5cGZJ wDNC1HIVtoTSk P2SweT1fMyXnCYBkGPKpB 5SoqFZcLOcrK928LWvzSn Q5JDKpxoKoD3HfFAAxcQv xNrB2j0Z6Uj3M XCbfggl8D3FaBibuiIB+P B04DXRfNX95rYDfyZJjl4 zlvFx2RqCwTGQaVCQ7xKk rLYgnk5QgSWFg Y29 (more content not included)... Normal [facility] HIV 4th Gen Screen w Reflex LCon 05-07-2025 HIV Scr 4th Gen LC Non-Reactive Invalid Interpretation Code Non Reactive [facility] Comment on above: Result Comment: HIV- 1/HIV-2 antibodies and HIV-1 p24 antigen were NOT detected. There is no laboratory evidence of HIV infection. HIV Negative Performed At: [facility] [address], [place] [id number] Sujata Lanier PhD Ph:[phone] Performed By: #### 1 [id number] #### [facility] (DEFAULT) [address] [place] [address] Urinalysis macro (dipstick) panel (U)on 05-06-2025 Bilirubin, UA Negative Negative - 4(70) +++ mg/dL [facility] Blood, UA Negative Negative - 50 Jeff/mcL [facility] Clarity, UA Clear [facility] Color, UA Yellow [facility] Glucose, UA Negative Negative - 2000(110) ++++ mg/dL [facility] Interpretation and review of laboratory results Abnormal [facility] Ketones, UA Negative Negative - 160(16) ++++ mg/dL [facility] Leukocytes, UA Negative Negative - 500+++ Javy/mcL [facility] Nitrite, UA Negative Negative - Positive [facility] pH, UA 7 5 - 9 [facility] Protein, UA Positive Negative - 1999(20) ++++ mg/dL [facility] Spec Grav, UA 1.015 1 - 1.03 [facility] Urobilinogen, UA 1.0 0.2 - 12 mg/dL [facility] C Urineon 05-04-2025 C Urine <10,000 cfu/ml Normal [facility] Comment on above: Performed By: #### 1 [id number], [id number], [id number] #### [facility] (DEFAULT) [address] [place] [address] HBsAg Screen on 05-04-2025 HBsAg Screen LC Negative Invalid Interpretation Code Negative [facility] Comment on above: Result Comment: Perf ormed At: [address] [id number] Sujata Lanier PhD Ph:[phone] Performed By: #### 4 [id number], [id number] #### [facility] (DEFAULT) [address] [place] [address] HCV Antibody [facility] 05-04-2025 Hep C Virus Ab LC Non-Reactive Invalid Interpretation Code Non Reactive [facility] Comment on above: Result Comment: HCV antibody alone does not differentiate between previously resolved infection and active infection. Equivocal and Reactive HCV antibody results should be followed up with an HCV RNA test to support the diagnosis of active HCV infection. Performed At: [address] [id number] Sujata Lanier PhD Ph:[phone] Performed By: #### 2 [id number], [id number], [id number] #### [facility] (DEFAULT) [address] [place] [address] RPR, Rfx Qn RPR/Confirm TP L Con 05-04-2025 RPR LC Non-Reactive Invalid Interpretation Code Non Reactive [facility] Comment on above: Result Comment: Perf ormed At: [address] [id number] Sujata Lanier PhD Ph:[phone] Performed By: #### 4 [id number], [id number], [id number] #### [facility] (DEFAULT) [address] [place] [address] Rubella Antibodies, IgG LCon 05-04-2025 Rubella Antibodies, IgG LC 1.36 index Invalid Interpretation Code Immune >0.99 [facility] Comment on above: Result Comment: Non- immune <0.90 Equivocal 0.90 - 0.99 Immune >0.99 Performed At: [address] [id number] Sujata Lanier PhD Ph:[phone] Performed By: #### 3 [id number], [id number], [id number] #### [facility] (DEFAULT) [address] [place] [address] .Auto Diff 1on 05-02-2025 Auto [place] % 8 % Normal 1-12 [facility] Comment on above: Performed By: #### 1 [id number], [id number], [id number], [id number], 81417726, 95628153, 4119283, 99999436, 7879899 ####[facility] (DEFAULT)[address] [place] [address] Baso Abs# 0.0 x10 Normal 0.0-0.2 [facility] Comment on above: Performed By: #### 1 [id number], [id number], 24707616, [id number], 42728040, 93916583, 0446285, 73504071, 2451376 ####[facility] (DEFAULT)[address] [place] [address] Basophils/100 WBC (Bld) 0.5 % Normal 0.2-2.0 [facility] Comment on above: Performed By: #### 1 [id number], [id number], 32471220, [id number], 49862483, 28078312, 4179322, 42664277, 6041499 ####[facility] (DEFAULT)[address] [place] [address] Eos Abs# 0.3 x10 Normal 0.0-0.4 [facility] Comment on above: Performed By: #### 1 [id number], [id number], 91290070, [id number], 22318745, 47413203, 9935921, 53604465, 2335190 ####[facility] (DEFAULT)[address] [place] [address] Eosinophils/100 WBC (Bld) 2.6 % Normal 0.9-4.0 [facility] Comment on above: Performed By: #### 1 [id number], [id number], 93834918, 3045765949, 63588996, 59706067, 6859173, 06518456, 4927317 ####[facility] (DEFAULT)[address] [place] [address] Lymph Abs# 2.3 x10 Normal 1.3-2.9 [facility] Comment on above: Performed By: #### 1 [id number], [id number], 34840356, [id number], 95280657, 69720166, 9832356, 58385599, 3200533 ####[facility] (DEFAULT)[address] [place] [address] Lymphocytes/100 WBC (Bld) 22 % Normal 14-48 [facility] Comment on above: Performed By: #### 1 [id number], 23583153, 93580921, 1407221891, 50145517, 22066870, 1931657, 17023432, 6494891 ####[facility] (DEFAULT)[address] [place] [address] [place] Abs# 0.8 x10 Normal 0.0-0.8 [facility] Comment on above: Performed By: #### 1 [id number], 57142394, 12083851, [id number], 21481896, 78249240, 6998950, 47767193, 6631762 ####[facility] (DEFAULT)[address] [place] [address] Neut Abs# 6.7 x10 Normal 1.5-9.2 [facility] Comment on above: Performed By: #### 1 [id number], 35321005, 65451654, 7489428452, 44959190, 66984452, 1810712, 83497630, 6851177 ####[facility] (DEFAULT)[address] [place] [address] Neutrophils/100 WBC (Bld) 67 % Normal 44-88 [facility] Comment on above: Performed By: #### 1 [id number], 38806009, 41726825, 7571818436, 60156279, 70655671, 5299943, 87096514, 6500311 ####[facility] (DEFAULT)[address] [place] [address] ABORhon 05-02-2025 ABO and Rh group Nom (Bld) Hx Check: Not Found Anti-A: 0 Anti-B: 0 Anti-D: 4+ DCon: NT A1: 4+ B: 4+ ABORh Interp: O POS Invalid Interpretation Code [facility] Comment on above: Performed By: #### 3 [id number], [id number], [id number] #### [facility] (DEFAULT) [address] [place] [address] ABSC Gelon 05-02-2025 ABSC Gel Negative Normal [facility] Comment on above: Performed By: #### 4 [id number], [id number], [id number] #### [facility] (DEFAULT) [address] [place] [address] CBC w/ Auto Diffon 5 Erythrocyte distribution width (RBC) [Ratio] 13.6 % Normal 11.5-15.0 [facility] Comment on above: Performed By: #### 1 [id number], 31004836, 28324410, 6820184619, 56141921, 01996426, 1850045, 00227132, 7616448 ####[facility] (DEFAULT)[address] [place] [address] Hematocrit (Bld) [Volume fraction] 38.2 % Normal 33.7-40.4 [facility] Comment on above: Performed By: #### 1 [id number], [id number], 36119868, 2474182228, 70861878, 17828456, 8378409, 97488369, 2835983 ####[facility] (DEFAULT)[address] [place] [address] Hemoglobin (Bld) [Mass/Vol] 13.2 g/dL Normal 11.3-15.9 [facility] Comment on above: Performed By: #### 1 [id number], 58399316, 07847569, [id number], 07109530, 28238765, 0471991, 23563369, 2508031 ####[facility] (DEFAULT)[address] [place] [address] Man Diff? Auto Invalid Interpretation Code [facility] Comment on above: Performed By: #### 1 [id number], [id number], 87063373, 8790430750, 52586734, 54784964, 6591284, 80926899, 1375335 ####[facility] (DEFAULT)[address] [place] [address] MCH (RBC) [Entitic mass] 30 pg Normal 24-34 [facility] Comment on above: Performed By: #### 1 [id number], 29207743, 28856631, 5790963528, 62805650, 68408045, 4696966, 59387115, 2457148 ####[facility] (DEFAULT)[address] [place] [address] MCHC (RBC) [Mass/Vol] 34 g/dL Normal 26-37 [facility] Comment on above: Performed By: #### 1 [id number], 03056731, 90410365, 3864032765, 74274133, 24937585, 7892639, 61550446, 8316140 ####[facility] (DEFAULT)[address] [place] [address] MCV (RBC) [Entitic vol] 86 fL Normal 81-100 [facility] Comment on above: Performed By: #### 1 [id number], [id number], [id number], [id number], 19421670, 92093410, 8536246, 95645592, 3181129 ####[facility] (DEFAULT)[address] [place] [address]677 Platelet 288 x10 Normal 138-427 [facility] Comment on above: Performed By: #### 1 [id number], [id number], 28733910, [id number], 18686604, 94072911, 0721712, 74444242, 7715790 ####[facility] (DEFAULT)[address] [place] [address] 89277 Platelet mean volume (Bld) [Entitic vol] 7.4 fL Normal 6.3-10.2 [facility] Comment on above: Performed By: #### 1 [id number], [id number], [id number], [id number], 51443565, 48828193, 5268288, 82484983, 6699160 ####[facility] (DEFAULT)[address] [place] [address] 79530 RBC 4.43 x10 Normal 3.70-5.30 [facility] Comment on above: Performed By: #### 1 [id number], [id number], 04511097, [id number], 99350565, 42785718, 2184534, 41697682, 0614166 ####[facility] (DEFAULT)[address] [place] [address] WBC 10.1 x10 Normal 3.5-10.5 [facility] Comment on above: Performed By: #### 1 [id number], [id number], 66270608, [id number], 69591494, 38115979, 0634569, 70038424, 7834325 ####[facility] (DEFAULT)[address] [place] [address]64 HgbA1c Standardon 05-02-2025 .Hb 15.2 Invalid Interpretation Code [facility] Comment on above: Performed By: #### 0 [id number], [id number], [id number] #### [facility] (DEFAULT) [address] [place] [address] .Hgb A1c 0.49 g/dL Invalid Interpretation Code [facility] Comment on above: Performed By: #### 8 [id number], [id number], [id number] #### [facility] (DEFAULT) [address] [place] [address] Glucose [Mass/Vol] 100 mg/dL Invalid Interpretation Code [facility] Comment on above: Performed By: #### 5 [id number], [id number], [id number] #### [facility] (DEFAULT) [address] [place] [address] 46138 HbA1c (Bld) [Mass fraction] 5.1 % Normal 4.6-6.2 [facility] Comment on above: Performed By: #### 1 [id number], [id number], [id number] #### [facility] (DEFAULT) [address] [place] [address] Provider Orderson 05-02-2025 Provider Orders [id number] Normal [facility] Triage Panel 12on 05-02-2025 Triage Internal Control Pass Normal [facility] Comment on above: Performed By: #### 1 [id number] #### [facility] (DEFAULT) [address] [place] [address] 99970 U Amph Scr Negative [facility] Comment on above: Performed By: #### 1 [id number] #### [facility] (DEFAULT) [address] [place] [address] 16353 U Yessica Scr Negative [facility] Comment on above: Performed By: #### 1 [id number] #### [facility] (DEFAULT) [address] [place] [address] 20677 U Benzodia Scr Negative [facility] Comment on above: Performed By: #### 1 [id number] #### [facility] (DEFAULT) [address] [place] [address] 25848 U Cannab Scrn Negative [facility] Comment on above: Performed By: #### 1 [id number] #### [facility] (DEFAULT) [address] [place] [address] 14907 U Cocaine Scr Negative [facility] Comment on above: Performed By: #### 1 [id number] #### [facility] (DEFAULT) [address] [place] [address] 24279 U Methadone Scr Negative [facility] Comment on above: Performed By: #### 1 [id number] #### [facility] (DEFAULT) [address] [place] [address] 38756 U Methamp Scrn Negative [facility] Comment on above: Performed By: #### 1 [id number] #### [facility] (DEFAULT) [address] [place] [address] 01778 U Opiate Scr Negative [facility] Comment on above: Performed By: #### 1 [id number] #### [facility] (DEFAULT) [address] [place] [address] 49255 U Oxycod Scr Negative [facility] Comment on above: Performed By: #### 1 [id number] #### [facility] (DEFAULT) [address] [place] [address] 80849 U Phencyclidine Scr Negative [facility] Comment on above: Performed By: #### 1 [id number] #### [facility] (DEFAULT) [address] [place] [id number] U Tricyclic Antidepress Scr Negative [facility] Comment on above: Result Comment: Resu lts are to be used only for medical (ie, treatment) purposes only. Positive tests will not be sent out for confirmation. PROFILE?-V MEDTOX Scan? Drugs of Abuse Test System detects drug classes at the following cutoff concentrations: AMP Amphetamine (d-amphetamine): 500 ng/mL BAR Barbituates (Butabital): 200 ng/mL BZO Benzodiazepines (Nordiazepam): 150 ng/mL BUP Buprenorphine (Buprenorphine): 10 ng/mL RAMILA Cocaine (Benzoylecgonine): 150 ng/mL MAMP Methamphetamine (d-Methamphetamine): 500 ng/mL MTD Methadone (Methadone): 200 ng/mL OPI Opiates (Morphine): 100 ng/mL or 2000 ng/mL OXY Oxycodone (Oxycodone): 100 ng/mL PCP Phencyclidine (Phencyclidine): 25 ng/mL PPX Propoxyphene (Norpropoxyphene): 300 ng/mL THC Cannabinoids (02-pde-7-carboxy- -THC): 50 ng/mL TCA Tricyclic-Antidepressants (Desipramine): 300 ng/mL Performed By: #### 1 [id number] #### [facility] (DEFAULT) [address] [place] [id number] Urine Source Clean Catch Normal [facility] Comment on above: Performed By: #### 1 [id number] #### [facility] (DEFAULT) [address] [place] [id number] HCG ( test) Ql (U)o n 04-12-2025 Interpretation and review of laboratory results Abnormal [facility] Preg Test, Ur Positive Negative [facility] OB TRANSVAGINALon 025 US OB TRANSVAGINAL EXAM: US OB TRANSVAGINAL HISTORY: Dating. COMPARISON: None available. TECHNIQUE: Two-dimensional transvaginal grayscale ultrasound imaging of the pelvis was performed. Color Doppler evaluation of the ovaries was also performed. FINDINGS: The uterus demonstrates a normal homogeneous echotexture. The cervix measures 4.3 cm in length and the cervical os is closed. The right ovary measures 3.4 x 2.1 x 2.5 cm and demonstrates a normal echotexture. There is normal color Doppler flow. There is a presumed corpus luteal cyst. The left ovary measures 3.2 x 1.4 x 2.9 cm and demonstrates a normal echotexture. There is normal color Doppler flow. No fluid is present within the cul-de-sac. There is a single, live intrauterine gestation identified with a heart rate of 181 beats per minute and a crown-rump length measurement of 2.2 cm, correlating to a gestational age of 8 weeks 6 days (+/- 6 days). There is no subchorionic hemorrhage visualized. A yolk sac is visualized. IMPRESSION: 1. Single, live intrauterine gestation 8 weeks, 4 days by LMP. Today's ultrasound measurements correlate with a gestational age of 8 weeks 6 days (+/- 6 days). DORI by today's ultrasound is 11/16/2025. 2. tachycardia. A short-term follow-up ultrasound is recommended to monitor heart rate. 3. Normal color Doppler evaluation of the bilateral ovaries. Interpreted by: Electronically signed by GODFREY AGUILAR II, MD, PHD at 14-Apr-2025 08:20:49 AM [facility] Normal Not Available Comment on above: Order Comment: US OB TRANSVAGINAL No LMP recorded. Urinalysis macro (dipstick) panel (U)on 04-12-2025 Bilirubin, UA Negative Negative - 4(70) +++ mg/dL [facility] Blood, UA Negative Negative - 50 Jeff/mcL [facility] Clarity, UA Clear [facility] Color, UA Yellow [facility] Glucose, UA Negative Negative - 1999(110) ++++ mg/dL [facility] Interpretation and review of laboratory results Normal [facility] Ketones, UA Negative Negative - 160(16) ++++ mg/dL [facility] Leukocytes, UA Negative Negative - 500+++ Javy/mcL [facility] Nitrite, UA Negative Negative - Positive [facility] pH, UA 7.5 5 - 9 [facility] Protein, UA Negative Negative - 1999(20) ++++ mg/dL [facility] Spec Grav, UA 1.015 1 - 1.03 [facility] Urobilinogen, UA 0.2 0.2 - 12 mg/dL [facility] Coding Summaryon 03-01-2025 Coding Summary HTMLBase 64 GryuawirTBo1qRr+PGhlY WQ+MD2JBLTaL07maAMezG 5hZ9BNTBaYCyfmCQBUONr UChEobzJpBE5nbRNlSMPt IC8+BI0lPVOrFoxqlQZjj 4E4kCO6F00ggu6vZQwaoF G9OBJgMsJhbbyaz1ckfOr 6IDcuNmluOyBt NPYeuF12NFQ9pP62Qp73w IZspFQxe5wdtTp2TdLdGW PqLLB9zRawRFydp8SyHIV vR38ldNHlt9N0 EPSfxNeqcFCdKmMkwJY0x T8tTCtplccrb7jejuufLs j1je01aFXdp4D6nUM3W2E opsH2HTAxaJUd GopgbVBJpU5zgqfzu1coq cbqUcDwLLZnISp1NJe8DQ GgqIuzCqNaOW95ZXW6GOR xumCmY2ReYOGz oYtzWbN9z3C5Og8CX7KOL gscD4LKTYBAIGcibST+PC 42wb79L7BjKsaeObd1MTQ tMJR6kWY1yE8m VFHpLNopq3W7uGV7V3Ipm jYkba9qj1sqEGOoLMmrX6 1glMIvf7L5HBIzvCQ4IWN itYtsNyPfwV26 Oyc+RONzrJgod0YmSqhfd 1sxw7hgeJp0ChkqMBYwha UtgAcjATU0z6NlCv6gFYP qzIV8lJB3lC4j TvGkOdZ0HQdkA073AyMaz HMnXwdtT71gU7EbrXI+PH WuSjs2YVYkqZwcGZ0xY9X hZGRpbmctbGVm zCjyFC0kZHYjkrdxVWNmt C0tFRTdY5u1XgDtCnU9XX vxD6GxHUZwmkfjOm79zO1 zWyYeHpR4HLww W2ZscsM7MLRbyJIkBGowV ET8V30dx1C5MZCvOHScHZ U6eUN6pB8bnEwwtfmvuSP mdDsgdmVydGlj OEmtIEppV698XBSlhPxpE kNvZGluZyBEYXRlOiAgMD cvMTEvMjAyNTwvdGQ+PHR eDMR3zDzjRAYl cRZuMKifBm2qdRmyoIdwB D9eBSAsmmyjKQKsoG1xTJ PkqVHwqRmaBF2zCOWbowg dp309NhNuMDJ2 VNJgyYRjQ0LkbZ6aSzQmN NWtONRtT2UeuFToTQpyO4 84VCnoJcX3RWQeegNzF5O sLWFsaWduOiB0 v9R4Dx7Np8UxjahrY0Jsx ZNvSaYmJjxvXXb9N2IlIj wvdHI+VN53VEPgOJ69FLb 0AVQ9jPxyKFed BSQmA3OpfC8sHgKxTVIaC GRkOyc+PHRhYmxlIHdpZH RoPScxMDAlJyBzdHlsZT0 gBm6fPEEcDLVb aSvjnWVxEjKin1ytFFDaN JqeHV7kzNdoA7QejEK7GW Yma7s2Sm25F95dS9VnuPI +VIUzsIQ1xKH9 eQ7eRcZkBsL9KZldV964F pDanMAzVjmzn1hwl2wayY i2RyR3VSMsdqAeuGhuZIA 3a4EkCg08C15z IHdpZHRoPSIxNSUiIHZhb Umlsx2soX9jZh8+PGNvbC E9oQB0lW7zFjMvZnQ0YFn fT572DbHloTPb Ktmox7kym5theGs3NjHfA YJoksSjgNpvGWO8r6FaYw 45S1XiyFfcd8ZcJkw5yp2 1kHAzm6H3iYP8 P7RlTRKbduwktMXzvTgzU W0sLTQnxuyePKDmmU9kFJ OsW7h9PrQsAgI9BUrbI7X hehB4RGRqyKSm KQJnaSKEqE2lbeyjh3xvr lmrXbGqRFVtXTc8VMu0UA IojVxqOqCvXYE5DgI0EAW 3aIVagT0lpThe zjwfpN2uNhi+VMS5vSEfn LITEQ5vYlmsnTZ+PHRkIH H2tPstTTtrQKYcmF1kADN oN9v8UrEhFgB4 IBnwG0NbrhA1ZOYkgAYdB RQtjANJfV1egsbct2qvwo jdEuRiGDRcQMt4YLj4OTM saWduOiBsZWZ0 CzP4VOD5rZWzyN3roCxza mdukL4rKst+QmlydGggRG D8HHw3O4PcBsl5TWIugGs qEZ5mgHNpMZoq If5rlPntuTueGV3mCAHqr qyce921CmKwb2gdEMGsgE JjVVbsPOF2F16tw7B4QCR fJCKhJQK8rNW1 eC4wvWnlndwahMHttIdfh lTvcGbwGQkbRQwaD654NN DewYrdDuBoTTt1G4GrLaa 9MSYewXqsPM3l kBBhYWkyTl2orQyzaYunQ U0lBEUrdbrrd426OqYwq5 ggZHRdjQZiEVgxETC1E66 xa0T0AQYcUNAg AUC6kWM0lR8uaBaaukhhx GVmdDsgdmVydGljYWwtYW gpO672UFGcdOktAdShrDa 3F1KdIgv4QDOa fXgkCJ4tkZDjCPodUl7vy AdhhVbpYV2cMBPonfjof5 87DdZxv5xnOCWhcVClVEq rUVX3K81jq6S7 IROpASWbUIL5uFO8lI2sl GlnbjogbGVmdDsgdmVydG ldVXscBDwaM210HZCvbMv nPlBhdGllbnQg VXggQTt2O7MzXupsqQE+P T37JADiAS88kBSniHAxz7 bsvWl7IgVrRBMjDJP2pIi mLFgjg5ClXYHf H63ylQEoc9D1BAJdjIucu NXcFoIsjZO7hQ5cCNpxcc vqp0bstyzuKvkua5hzwj6 2gV31N50lGAgl ZHRoPSIzMCUiIHZhbGlnb k7jvS6qGb0+WNPyqNF8gS V3yN3xXKJrRyM2OAucS17 9InRvcCIvPjxj w3fno7kiuAr9YcC2JKWbn cGesWudKCX7w9RcAu53Y8 9sIHdpZHRoPSIyMCUiIHZ rbUjbsa3uxP9b Ii8+SJUzlVE8lYX0iK8kZ fZmBuL8TKddE639RgTmpI RqJyumK24lC5MtmIL+PHR aUjo3VOZiwBck EH7dfNMuWMyzVg3qJMA8S wXgVlTcVPxqG1IrOGMqno szwacgvUN2WXGkHTBopB7 2Cl1gxWhkYAUd jZEBjN7slhknu2thgpynT rKvIYMhMGz2LMw8HZUcnX wkQiHdLVJ1PzI6RSY8sBY alO6iyRorhizf nQ1bM3EkEUOcfkozZq35j A2sBjUnAbR0WOvwDdt+Qk 9MTEVOQkFDSEVSLCBCUkl ZH0INJT9BEuz5 C6HoAxq4TJEdjGudCR0sn CPmZAfnLa9dfQpwnGzgDV 8bIYGpgawaCBRleO3uSVP mmLKjhRavTB4g OOQdpsmin358IcDnIMY8P MLizWDzA6MxmX8fWzZwYX ZkUBWdC2YnqOWrKAvuQ21 4UMiyOuP1PVJd edItA2FjCHTwpYtfDzX5x 7D3Qm8lLC2bGP9jDBmcII 62PJ76dKRrl3C3qTV4E6W hZGRpbmctcmln cUQ6BAIzNWGisR09cQGaU TgnTg4md0S1p574FNUhVU EdcO20Ch5qaEsbSRVfpEZ BsR2coihel8ty umbxNdKtQPQcHBm3TVa1Z HRnxHfmJiIwBSS2HjK8JK V0lAWqwM8fzCwoppuphW7 wOyc+MzQgWWVh wbS6K6VeRhb9LELosLorX I2ekCGzMMhzYz1vrQknjS qjSS8tEBZejuaoWBBqiR8 nLWJvdHRvbTog KC6lHBCcioxey567OjKzN EM6IIEsfRItG2RaiR7lAb SkIJJjCLFpO9LecGHwJGc qN264SXfeFkK1 BMLucfSdU9QvJOFfkEcwP bM6f3R8Mt0TUD3GUHC9O5 DcNjz6LHLhiGwjBO7upSW eIRhdFc7qsGma bGujRV7zMWZiqjloRXHbi I9yWHAtbVTfcSxjMH2zWV Jifnrvf315IfHiIYM0IWW phFMtG4WbiA5o EhZwVKCyAFOkO3DfuTExI UbbV946QRrxWaV8BNJrpf YaQ3XfKLLowDgkScP1h3L 7Sq0VLSgloWH+ YB39rg35R2IjIukfJle2M BQyKMM5xUW3gU0tINAcZQ xda8L7yWP2Y8CyxfWiwp7 bv7lpTRQeSJkp G43tkWTzp9G7SWPliNL5T GDinSrqJpOxtT81Ejn+PG NuxZocp4ZsGlush5tim1v xyNq2RkWsTEXg kdDwyLeqREU9o7FtFl73D 29sIHdpZHRoPSIzMCUiIH NjsHqnkg9cxM0iGr0+PGN bwKI0aFN1gK3x IpToNwA6YQdpI311FoZfg QWiSewtc3yjy8dywPj7Ax CtQSKydkBwdAwcGBD4u7R bAa28A9CcfByx r1GcIvx8zc13zWBuo7T2y HI6U9OdNGVetijkyLUmiV kjSZ4eUWPcwkekOTBjwH6 hEMKtP2r6DrAq YyB4DHjtT6PtuxQ2XUMva KBxOZDdnQNSaR8xeqhmv6 lmhtdoElIjUGCkAGf0TDh 0LWFsaWduOiBs ZRI6GcP5XPN5dMMixZ8is MiuvrhqiU6lHck+UGh5c2 jwpXMaZM6vmFL5WG99XE4 3pJPok1G7kQU0 C2QqLUXwkhamlpdyySL1E HZlCHJjnA98Zd0ahOqdAz 8xLEXvOPU5PELxdYAxJ0Y haS4mTmGuNQLz VWTgI1HocTBsZKemM472Q UdzUgT1YOTnvkYqD8TpRF TinGpeGxG9k6Z0Vp7RPS2 3ZR94PL96rINb f8N5mNV3G8SzPZSmymnrp hrjiVG0RQPzXTGcnY96Op 3kxMwpXt3zNQItFHP9IUJ ycPKoE2GcuN7z UjXhFPMqMLIwM3PuyGTuV GkcN286SDjyEyM6VYZfyu KkA9LcQVUeqMvuDuW6x6V 7Fl9FWj42RV66 HJ76iJDcs3G6yOD5V7GuG RPwawmfrgqipAH2ZGDmMN WofP06Vb1qpRcsVu5eYYO fLHV2GPYmlIGa Y2KiiH0iFeWyRSDxQLLxA 1CtsAVsPCulZ013AIqhIk J9YDQizbKoS7YvGYPjaSm rLxL5g1E2Ry5W ZRezpdl9I1ZaFyvvpUU+P Q88KDSrMD16aDNaeCNye7 qshNj0ZtVdTQBlZYO3mId rNEbba6VvIALn Y29 (more content not included)... [facility] Coding Summaryon 07-07-2025 Coding Summary HTMLBase 64 SplbnnagMVn9rBh+PGhlY WQ+RL2ZNMWzL39goRSocY 5hM9YPOIbCHareGEBWKYe PJbZycrCpXZ2llLGrNITn IC8+WH4uLVCdHbainQFkc 7N7hZO4R19nip2dDSosoT W9MJWcVzYciikke0brcKv 6IDcuNmluOyBt MRSvqB36WHU6dR24Rk58h PAumBOpp7gvoQf6VjKnII DlYNR9kFfiYPhbi2BkUWV oL93leVMfj7Z8 JXQiwYlrwCIjNyPttQU2a U3wCLccbwmwc4jiowclIl u1au23kCRrm1U5lES6A1M uzpM4TISkxQAi TlcebMLIwM4wztxtm7uis yxqXjPaVKLrAOy0AFn0NG DysCbrDkRcHE43FJR4ZKS cdhJfZ5PmMPTs wRfkYcL7f3T4Wu1WN2JES queR8RHFJVDTTxbgXC+PC 11rl91P5AlPzzxLcu2MWM sFHL9xWO1lW7q VKTgPQwhu6T2sBJ3E3Jjm yPxkt0kn8ovDDWkJEkqP1 2ktLUur9P2MPGvaEM6CDX kmMnwRyWtfW75 Oyc+OYNcjZrpp0HbMrbmb 0yhm9yypJd0UfntPIKckq EdwOgfCHT2c5GgLg0qBCB ozDI6hZB5lQ1j ZuJzLkW2EZmdB244SfYdn FUcBvfrZ84uT5EsuKC+PH VqGiy0HZZewMwgZO4bM7E hZGRpbmctbGVm aXlfDZ1kLUMbsfjsFEDjh N7yPFNxK8y1OyQcKvM1FC ksP3KePGFecraoBz96bN2 lKyFkCvB5HCxo U6UhbjP5CIDphIVxNEsrZ YS2S18jz8A6WBUdWSNkCZ H4lVS3rZ4ztBohfgjmqVR mdDsgdmVydGlj URlnPOapA494LIByrLllV kNvZGluZyBEYXRlOiAgMD cvMDcvMjAyNTwvdGQ+PHR yJPY8uXgoDQFh vKPlOUffSp9qgWveoYbbV W4xLWZdupkeGCDucG0eHH MtfHHfiSeqOD2dOGNrmxf em904OnEyRWS6 DPGosRLyN0ZnqI8aGfZrA NWuSTNqK9LiuHDbPOvmC4 78REbpXfN2OMZhopCaF3L sLWFsaWduOiB0 h2G2Zw1Jq2MqmakiD3Btv BVqKrImTlkyDGm3H5LnTn wvdHI+MJ30WDDbXU02OWz 4GJY0xIjsYZro YHUiZ0AjiN0lUuGrIHByH GRkOyc+PHRhYmxlIHdpZH RoPScxMDAlJyBzdHlsZT0 vSr4rHCKjBMRx tMkfsHMaRjCym1shXNJaL HacRB8kyBelU8UixZU5DV Dnd7x1Xx66K58hK6JbdGA +NZPohGX4qUO6 hU6nEcArSbA4FFxdU630E jJyfZLnUyxqx4mwf3oaxN s1FrF1JBEhpdSrmWlqHIS 7d6NzHy82K29b IHdpZHRoPSIxNSUiIHZhb Amhiq4djT2wQg5+PGNvbC P5jCL8lM3iSoEsFpL1JQn yR642TaOraGGu Rpxvn5rvz4kwqZi0LkAnQ HTmspNheKuwJQZ4w6AfWd 10C6XkfDiky3YyHzy7tw7 0dIYlc3C9yWR5 D8ZwVTKtrgrbnPIzfZvkU P1zNFJduwciFEQrtH0aNP InV0e9ZaTmHcU2EZwgK2A ifsO0WVIfnAZi IOShnYJRvF8xoined5xqn dhbYbOeMHJdFAx1OIn4EB MdhLxiTdVmBGA0XjS6KFS 1oPAwzS6kiUqm xkvcpK4mUwa+GJH5tRZvp VGFFG3kLnhixOF+PHRkIH J6qGscPErvCYPcgP7vOSW xB4q7MjQsFxQ4 TRucX1VfszZ7TBLjhIFmE UMdiZPKrW3ivdlve4fadr gwCaDkHJCoGEm7TWp0WZW saWduOiBsZWZ0 EtA0CNA9yGKgtC8upLjij bpwfK1zJqu+QmlydGggRG R4NBm7A5EzPkw1HCItyRc aPZ0ppCWrTLky Vd7caUhiySorUS6xLWMdj agqx317RzVzn3ylBUWaqS LiHPeeDNK0E59be5Y8OPV nBKOzEYQ6sWB3 lR6jvNjrtopjtOGbyRmlw xEtkTivIIvqLSvfE155DS OqvTvjQkAaFQh1V5FeNhw 7HYBfeMoxIB4s xBUaFAldKs9ekJobgXdmQ U4fLBRhityeq678ZvQhl6 gbGMQujOYcLJpkADO3Z45 fd0E2BLGoRDAl ULF0sJG3lW5zoAnuzondn GVmdDsgdmVydGljYWwtYW rsR555NCQecEgiPpUtbDa 0D5HmFro4FQTp qGcbBO0miVItVSadZw5az XzhdAvdUA6iRBGeywdbu3 86DwLrg2xiNHYgxRImIVh oTUS4M76hs0A1 FBIxBNDnALU2kDI6cJ3cz GlnbjogbGVmdDsgdmVydG spWKvnBGidY568FTQtsMj nPlBhdGllbnQg SScjHXd4X1AtSpfgjPB+P A79HKKlKF23gQRxpIVbe6 huhDv5XoDbNYJtTWF2aXo jMKxpr1OuMITl V14xfKPmt5Q3WZMfhRfle ZPvMqKcmFB7zA4iVFtlhx ogy5tgpyynFijgk9txqr3 0cI62I83wLQmg ZHRoPSIzMCUiIHZhbGlnb c7ooG3dEe1+LYKurNE9aE D1mF3wOGRyCqJ9BDrdI65 9InRvcCIvPjxj g2zna7yzdGj2RgG4UNIhg vWfxOieACU6x6LhTg42I3 9sIHdpZHRoPSIyMCUiIHZ jbDhxty4nsF1l Ii8+AIXtqWW6sQS0nQ5mR mVrLaB9WKadC079CqRivW BxSwldO85dR4WnnZJ+PHR iGvh5CZMcyOfz AT8qlCLrOHbyQu9lNVU6G hSxWeKpVVdaU0WeQGPmwc svohuwaCY8LGPmAKVcxC1 4Je0ixDpkMROg kFOTpY7gwkxnv8fuqlspM qZgRPAePYb0DAy8JTTdvP cmYiLvCNE3QrN0DFQ0bUS vfT8qtAlctgbv cO7mJ3FfUNSciraqXn71p J2mMmIaNhY7WMjyYtk+Qk 9MTEVOQkFDSEVSLCBCUkl BD1WYYR4FNcb2 P4OzEaq4GGHzkHykLR8lw OPnUHgxOm0spXtysLidGP 5zLVCbwrtuJZOwvC7nVOX vvIZenYzlSB3x CVFsqzbpi519RqDrDQI4S QBfvTIvG5OpzJ1mLvHrAF UdOVArS0GuyRKxXSnaE52 2BWufWxT8PXJi ulByM6GqUDPqxOtqAxA5u 9M2Kk5eMI4dQC2lQOwiUN 52XH11bLIwu6G8aDF7F9H hZGRpbmctcmln xMJ8TMPwCRQtoS57qPUbJ QsxOj2ah4L4r071BKYjEW NjjO13Ul5jfQgdYDHnxHU WzQ7ypkcdg2tw bzxwSsJkWLDaODs4TLg7G LElnFyoElWxNWS8JiN0CV X0tQZehF9clYknijnezH5 wOyc+MzQgWWVh mgK5V9JzDyj2UKSesZcgR I5izMYlLCtqBh8gbEjwoQ bcDG1pHSXmgpxzDNNnnH5 nLWJvdHRvbTog AA4hADXzzlknj954VlNaB BJ6XRPhgJNpO0ZkxR8qPj IzCRKxRZUgX7LagWOwPIh cI628UTnrVpH9 ARZsltLdN5HiLUHyxGvwY kH0l6E7Qy9BNU0XCWT2Q9 VvIbv8PIXdfZlcCT5oiFI wKMytLk4tpJmz sLrqQV4nZCObdkstJRQft T1lLGUmfBKdeErkMX0xLT Xwbubgz408SjInJYQ3VVD kcIXkZ9TcvR4i AhAlRTFsSWWyW1DlpQHwR BogN317IPzaLgI9TOUuzv CvU9JsHWTeyGfzOwR1f3V 5Ik7OMZngeJF+ AD69ej73Z3EdIuzdNbh9N YEtGZW9wAJ9zW4wJFHhQJ osr4H3dMY2D2UzdcMton0 iq1vqZXNcYFje W90gqNSni8L0HOQeiLW6T FOnaAhqAwCubD31Uey+PG PitPaxm8InSvnmh4sgd4a kfYx2KhRbUSPq kvWctQhgPJT2g4LrZp92B 29sIHdpZHRoPSIzMCUiIH KakKjrge2fhU8oVz5+PGN rnZV0uNZ3eE4m BvUnNrO5HUyrC996AeNsw UUpQwnlc4hjh9frgLj1Yx RqHKPxkjXtpAgsYYF4z7O oSv95C7OobFtz g5NuJms6vl69kTBgb4S8g KJ7Z5FiFIMsfgralSWbqH ucUG2eGGAvqnczBLDjwS4 kKHZeF4u5WvRb LzX2MJycH9PxqkB0FLDwh SKbPKFawRHKaY4mxvytt2 ervglkSmBkREDyMIg9UGx 0LWFsaWduOiBs JRU8GtO2VFT6rHOitB6bg OudxjtufW3bGnu+UGh5c2 iokQZuFA5zdBG3QW88GD6 3iLDhy7O1eQI5 F8UwSAYujbfaunofoCJ6A OBhXTKfdJ52Uo4hnGtdHd 8uSNFxBJN1HTGhkTFeB2F amU2nWwTrMTBx LSVwW4MtuNSxWXnpL189J YgePmK8NXVgrqTzT6GwSD LchNgaWmO6a8Q2Vk9XXO4 7CI79VM25zBTc j5F9cUJ9H9PrENSxicneu zscmDA3TAQhBAAtiY45Tj 1kmGyoVs8fBEPrSSN5OQJ geHTaW3ZotF8m YmZbCDMnWKBlY7TucRFfR CpgU374FKfqXnU0VLLxxh UcO6JeYXErvXihJeC2k7R 7Zu6FBx64NK99 VW77cMVdk6Y1zYB3K8ItM KYmyaepdantmLH5DUNzOA MzkW71Ns6sgFdjDv6yFQR zBZH2IPCwrAAn R9UqsQ3uNhJdYGGsADKfR 2BgrWFzQMqsR220ALmnPb J1XCQkstEuY1GiJFEvvYv cQdZ6p8U0Vt2U IKuszjt5S8BnGolwdAS+P C81YDTmJM83fCGneMOky6 mkqYk9YxMzUVXhTJL5jGb rATdyi5PoHPDd Y29 (more content not included)... Normal [facility] IGP,APTIMA HPV,AGE GDLNon AGE GDLN ACOG TESTING Note . [facility] Comment on above: TESTS RESULT FLAG UN ITS REF RANGE LAB Clinician Provided Cytology Information Source.............Cervix;Endocervix No. of containers..01 ThinPrep Vial Age Algo ACOG Nicci... 30-65 01 FLAG LEGEND: L-Low Normal,H-High Normal,LL-Alert Low,HH-Alert High <-Panic Low,>-Panic High,A-Abnormal,AA-Critical Abnormal Performed at: 01 =G [address] [address] Roberta Troncoso MD, HPV APTIMA Negative Negative [facility] Comment on above: This nucleic acid am plification test detects fourteen high- risk HPV types (16,18,31,33,35,39,45,51,52,56,58,59,66,68) without differentiation. Performed at: =G - [facility] [address], [place] [id number] Inspector Floor: Roberta Troncoso MD, Phone: [phone] Performed at: [facility] [address] [place], [place] [id number] Inspector Floor: Sae Nelson MD, Phone: [phone] IGP, APTIMA HPV, RFX 16/18,45 Note . [facility] Comment on above: TESTS RESULT FLAG UN ITS REF RANGE LAB DIAGNOSIS: 02 NEGATIVE FOR INTRAEPITHELIAL LESION OR MALIGNANCY. Specimen adequacy: 02 Satisfactory for evaluation. Endocervical and/or squamous metaplastic cells (endocervical component) are present. Performed by: Richard Brooks, Transplant Rn ([facility]) . 02 Note: Note 03 The Pap smear is a screening test designed to aid in the detection of premalignant and malignant conditions of the uterine cervix. It is not a diagnostic procedure and should not be used as the sole means of detecting cervical cancer. Both false-positive and false-negative reports do occur. Test Methodology: Note 03 This liquid based ThinPrep(R) pap test was screened with the use of an image guided system. HPV Genotype Reflex Note 02 Criteria not met, HPV Genotype not performed. FLAG LEGEND: L-Low Normal,H-High Normal,LL-Alert Low,HH-Alert High <-Panic Low,>-Panic High,A-Abnormal,AA-Critical Abnormal Performed at: 02 [facility] [address] [place] [address] Sae Nelson MD, [address] [address] Roberta Troncoso MD, BRUSH-SPATULA CERVIX ENDOCERVIX [facility] Miscellaneous Testing LCon 0 02-25-2025 [facility]. Test Result LC COMMENT Invalid Interpretation Code [facility] Comment on above: Result Comment: Test Ordered: [id number] Anti-Mullerian Hormone (AMH) Anti-Mullerian Hormone (AMH) 0.839 ng/mL For assays employing antibodies, the possibility exists for interference by heterophile antibodies in the samples.1 1.Elan Crowell Interferences in Immunoassays - still a threat. Clin. Chem. 2000; 46: 3214-8260. This test was developed and its performance characteristics determined by [facility]. It has not been cleared or approved by the Food and Drug Administration. Reference Range: Females 31 - 35y: 0.66 - 8.75 Median 3.00 AMH concentrations of >= 1.06 ng/mL is correlated with a better response to ovarian stimulation, produced more retrievable oocytes and higher odds of live according to Maryamer et al. Fertility and Sterility. 2010: 94:5487-1615. The current AMH test method correlates with the study method with a slope of 0.94. Females at risk of ovarian hyperstimulation syndrome or polycystic ovarian syndrome (PCOS) may exhibit elevated serum AMH concentrations. AMH levels from PCOS patients may be 2 to 5 fold higher than age-appropriate reference interval values. Granulosa cell tumors of the ovary may secrete AMH along with other tumor markers. Elevated AMH is not specific for malignancy, and the assay should not be used exclusively to diagnose or exclude an AMH-secreting ovarian tumor. Performed At: [facility] [address] [id number] Sujata Lanier PhD Ph:[phone] Performed At: [employer] [address] [place] [id number] Cisco Woodward MD Ph:[phone] Performed By: #### 1 [id number] ####[facility] (DEFAULT)[address] [place] [address] Dehydroepiandrosterone (DHEA ) LCon 02-24-2025 Dehydroepiandrosterone (DHEA) LC 284 ng/dL Invalid Interpretation Code 31701 [facility] Comment on above: Result Comment: This test was developed and its performance characteristics determined by [facility]. It has not been cleared or approved by the Food and Drug Administration. Performed At: [address] [id number] George Stockton MD Ph:[phone] Performed By: #### 1 [id number], 13752805, 0511098, 41012488, 6767503, 87587933, 1105326, 1218701, [id number] ####[facility] (DEFAULT)[address] [place] [address] Dehydroepiandrosterone Sulfa te LCon 02-20-2025 DHEA-Sulfate LC 146.0 ug/dL Invalid Interpretation Code 84.8-378.0 [facility] Comment on above: Result Comment: Perf ormed At: [address] [id number] Sujata Lanier PhD Ph:[phone] Performed By: #### 1 [id number], 52851270, 5527910, 78958906, 3781806, 87407941, 7934315, 8291070, [id number] ####[facility] (DEFAULT)[address] [place] [address] FSH and LH LCon 02-20-2025 FSH LC 4.5 mIU/mL Invalid Interpretation Code [facility] Comment on above: Result Comment: Adul t Female Range Follicular phase 3.5 - 12.5 Ovulation phase 4.7 - 21.5 Luteal phase 1.7 - 7.7 Postmenopausal 25.8 - 134.8 Performed At: [address] [id number] Sujata Lanier PhD Ph:[phone] Performed By: #### 1 1979775, 59944888, 1838858, 44689649, 3545604, 23736960, 6923756, 5451735, [id number] ####[facility] (DEFAULT)[address] [place] [address] LH LC 6.0 mIU/mL Invalid Interpretation Code [facility] Comment on above: Result Comment: Adul t Female Range Follicular phase 2.4 - 12.6 Ovulation phase 14.0 - 95.6 Luteal phase 1.0 - 11.4 Postmenopausal 7.7 - 58.5 Performed By: #### 1 0529188, 72438645, 5249438, 91761326, 0319637, 09938750, 7404260, 0181592, [id number] ####[facility] (DEFAULT)[address] [place] [address] .Auto Diff 02-19-2025 Auto [place] % 7 % Normal 1-12 [facility] Comment on above: Performed By: #### 1 7178559, 80682178, 9614198, 55705699, 8323881, 22704208, 9212196, 4463705, [id number] #### [facility] (DEFAULT) [address] [place] [address] Baso Abs# 0.1 x10 Normal 0.0-0.2 [facility] Comment on above: Performed By: #### 1 6410215, 22735449, 1339472, 44352277, 1112880, 49049812, 7525207, 1744473, [id number] #### [facility] (DEFAULT) [address] [place] [address] Basophils/100 WBC (Bld) 0.8 % Normal 0.2-2.0 [facility] Comment on above: Performed By: #### 1 7289299, 44803664, 7012642, 39329739, 9319125, 75892802, 0837056, 9234027, 4403802323 #### [facility] (DEFAULT) [address] [place] [address] Eos Abs# 0.3 x10 Normal 0.0-0.4 [facility] Comment on above: Performed By: #### 1 3469888, 61316064, 9275003, 61339738, 5357437, 39354557, 6521428, 0828242, [id number] #### [facility] (DEFAULT) [address] [place] [address] Eosinophils/100 WBC (Bld) 3.9 % Normal 0.9-4.0 [facility] Comment on above: Performed By: #### 1 4921165, 74075147, 4598432, 50776729, 6108445, 19415699, 2888623, 4149762, 2684415626 #### [facility] (DEFAULT) [address] [place] [address] Lymph Abs# 2.4 x10 Normal 1.3-2.9 [facility] Comment on above: Performed By: #### 1 4721755, 67404480, 5552754, 36607299, 2716801, 95945676, 1479761, 0362198, [id number] #### [facility] (DEFAULT) [address] [place] [address] Lymphocytes/100 WBC (Bld) 34 % Normal 14-48 [facility] Comment on above: Performed By: #### 1 9024062, 46009322, 9950334, 16335565, 9163533, 77095500, 0027554, 0593844, 1879762305 #### [facility] (DEFAULT) [address] [place] [address] [place] Abs# 0.5 x10 Normal 0.0-0.8 [facility] Comment on above: Performed By: #### 1 6108101, 59617425, 6794961, 66145039, 6248602, 92074979, 9948748, 2696485, 6562361207 #### [facility] (DEFAULT) [address] [place] [address] Neut Abs# 3.9 x10 Normal 1.5-9.2 [facility] Comment on above: Performed By: #### 1 4833649, 18186935, 7811912, 84002243, 9651135, 33464289, 0915398, 9564814, [id number] #### [facility] (DEFAULT) [address] [place] [address] Neutrophils/100 WBC (Bld) 54 % Normal 44-88 [facility] Comment on above: Performed By: #### 1 3132110, 43598112, 2505108, 01224441, 6569023, 01469156, 1807651, 9384248, [id number] #### [facility] (DEFAULT) [address] [place] [address] CBC w/ Auto Diffon 5 Erythrocyte distribution width (RBC) [Ratio] 13.8 % Normal 11.5-15.0 [facility] Comment on above: Performed By: #### 1 6543345, 60025206, 7962195, 24349924, 9298872, 98937694, 2696092, 8328396, 6657517398 #### [facility] (DEFAULT) [address] [place] [address] Hematocrit (Bld) [Volume fraction] 38.8 % Normal 33.7-40.4 [facility] Comment on above: Performed By: #### 1 6840891, 03710194, 3627731, 33166406, 5385264, 16104590, 5633465, 6871366, 1464716636 #### [facility] (DEFAULT) [address] [place] [address] Hemoglobin (Bld) [Mass/Vol] 13.2 g/dL Normal 11.3-15.9 [facility] Comment on above: Performed By: #### 1 5092967, 09099719, 4470451, 21507665, 0395865, 88420343, 4759839, 4773868, 1424198040 #### [facility] (DEFAULT) [address] [place] [address] Man Diff? Auto Invalid Interpretation Code [facility] Comment on above: Performed By: #### 1 6234863, [id number], 7656482, 00495075, 1302291, 68603200, 9230781, 6521044, [id number] #### [facility] (DEFAULT) [address] [place] [address] MCH (RBC) [Entitic mass] 30 pg Normal 24-34 [facility] Comment on above: Performed By: #### 1 [id number], 08683244, 3149534, 75961606, 9050356, 06169086, 9062059, 4580507, [id number] #### [facility] (DEFAULT) [address] [place] [address] MCHC (RBC) [Mass/Vol] 34 g/dL Normal 26-37 [facility] Comment on above: Performed By: #### 1 [id number], 04563193, 2880929, 35298302, 4704653, 80791545, 2076310, 6755337, [id number] #### [facility] (DEFAULT) [address] [place] [address] MCV (RBC) [Entitic vol] 87 fL Normal 81-100 [facility] Comment on above: Performed By: #### 1 4657899, 70740700, 2845159, 79845099, 7685254, 65261637, 4159968, 7832172, [id number] #### [facility] (DEFAULT) [address] [place] [address] Platelet 315 x10 Normal 138-427 [facility] Comment on above: Performed By: #### 1 7873030, 51872604, 9199085, 00297279, 6717884, 40822523, 7098020, 7916397, [id number] #### [facility] (DEFAULT) [address] [place] [address] Platelet mean volume (Bld) [Entitic vol] 7.5 fL Normal 6.3-10.2 [facility] Comment on above: Performed By: #### 1 [id number], 33789317, 9466752, 36947660, 1058305, 04722740, 2219083, 5103974, [id number] #### [facility] (DEFAULT) [address] [place] [address] RBC 4.47 x10 Normal 3.70-5.30 [facility] Comment on above: Performed By: #### 1 0136031, 48364821, 0255633, 94037110, 5474280, 95922882, 1060181, 3795672, [id number] #### [facility] (DEFAULT) [address] [place] [address] WBC 7.1 x10 Normal 3.5-10.5 [facility] Comment on above: Performed By: #### 1 2219342, 20964086, 2256057, 80356500, 5209053, 73465632, 4317845, 3198737, [id number] #### [facility] (DEFAULT) [address] [place] [address] Free T4on 02-19-2025 Free T4 [Mass/Vol] 0.79 ng/dL Normal 0.61-1.12 [facility] Comment on above: Performed By: #### 1 3919373, 36585804, 1911720, 27632611, 4335655, 78265969, 8716085, 5401446, [id number] ####[facility] (DEFAULT)[address] [place] [address] HgbA1c Standardon 02-19-2025 .Hb 13.2 Invalid Interpretation Code [facility] Comment on above: Performed By: #### 1 [id number], 46329091, 5105316, 22693259, 9974110, 74909129, 5248963, 7996742, [id number] #### [facility] (DEFAULT) [address] [place] [address] .Hgb A1c 0.46 g/dL Invalid Interpretation Code [facility] Comment on above: Performed By: #### 1 3283776, 01901363, 5054112, 49598908, 9652940, 66829828, 4513749, 2419014, [id number] #### [facility] (DEFAULT) [address] [place] [address] Glucose [Mass/Vol] 105 mg/dL Invalid Interpretation Code [facility] Comment on above: Performed By: #### 1 3400119, 76400830, 8005900, 01178616, 1344526, 40527070, 0333514, 5498826, [id number] #### [facility] (DEFAULT) [address] [place] [address] HbA1c (Bld) [Mass fraction] 5.3 % Normal 4.6-6.2 [facility] Comment on above: Performed By: #### 1 8999014, 81816289, 8073518, 84913349, 3165388, 92394135, 4113232, 2611796, [id number] #### [facility] (DEFAULT) [address] [place] [address] Miscellaneous Testing LCon 0 02-19-2025 Test Code LC 599522 Invalid Interpretation Code [facility] Comment on above: Performed By: #### 1 [id number] ####[facility] (DEFAULT)[address] [place] [address] Test Name LC anti mullerian hormone Invalid Interpretation Code [facility] Comment on above: Performed By: #### 1 [id number] ####[facility] (DEFAULT)[address] [place] [address] Provider Orderson 02-19-2025 Provider Orders [id number]#1 [facility] Provider Orders [id number]#1 [facility] 02-19-2025 TSH Qn 2.41 m[IU]/L Normal 0.45-5.33 [facility] Comment on above: Performed By: #### 1 [id number], 02874641, 2773946, 05586676, 7384474, 59959548, 8222850, 6512006, [id number] ####[facility] (DEFAULT)[address] [place], [place] [address] US Pelvis Non-OB Completeon 02-19-2025 US Pelvis Non-OB Complete EXAMINATION: U S Pelvis Non-OB Complete HISTORY: Polycystic ovarian syndrome COMPARISON: Ultrasound pelvis 12/15/2020 TECHNIQUE: Transabdominal and/or transvaginal sonographic examination was performed as indicated by examination type. FINDINGS: UTERUS: Normal size and appearance. Uterus size: 8.6 x 4.6 x 4.9 cm ENDOMETRIUM: Within the superior posterior endometrial cavity is a hyperechoic 1.7 x 1.4 x 1.6 cm mass-like structure containing internal blood flow suspected to represent a polyp. Within the inferior posterior region is a 1.7 x 1.4 x 1.6 cm hypoechoic structure with internal blood flow suspected to represent a polyp. 2 additional small hypoechoic areas within the endometrial cavity, 8 mm and 5 mm respectively without appreciable blood flow, but polyps cannot be excluded. Endometrial thickness: 11 mm RIGHT OVARY: Normal size and appearance and contains several follicles. Blood flow present within ovary on color Doppler. . Ovary size: 3.6 x 2.1 x 2.2 cm LEFT OVARY: Normal size and appearance and contains several follicles. Blood flow present within ovary on color Doppler. . Ovary size: 3.5 x 1.6 x 2.4 cm CUL-DE-SAC: Unremarkable. No significant free fluid. BLADDER: Unremarkable. OTHER: None. IMPRESSION: 1. Several polyps suspected within the endometrial cavity; see details above. 2. Normal appearance of the ovaries with both containing several follicles. Final Dictated by: Favio Louis MD Dictated DT/TM: 02/19/25 4:16 Signed (Electronic Signature): Favio Louis MD 02/19/25 4:28 pm Technologist: [facility] US Transvaginalon 02-19-2025 US Transvaginal EXAMINATION: US Pelvis Non-OB Complete HISTORY: Polycystic ovarian syndrome COMPARISON: Ultrasound pelvis 12/15/2020 TECHNIQUE: Transabdominal and/or transvaginal sonographic examination was performed as indicated by examination type. FINDINGS: UTERUS: Normal size and appearance. Uterus size: 8.6 x 4.6 x 4.9 cm ENDOMETRIUM: Within the superior posterior endometrial cavity is a hyperechoic 1.7 x 1.4 x 1.6 cm mass-like structure containing internal blood flow suspected to represent a polyp. Within the inferior posterior region is a 1.7 x 1.4 x 1.6 cm hypoechoic structure with internal blood flow suspected to represent a polyp. 2 additional small hypoechoic areas within the endometrial cavity, 8 mm and 5 mm respectively without appreciable blood flow, but polyps cannot be excluded. Endometrial thickness: 11 mm RIGHT OVARY: Normal size and appearance and contains several follicles. Blood flow present within ovary on color Doppler. . Ovary size: 3.6 x 2.1 x 2.2 cm LEFT OVARY: Normal size and appearance and contains several follicles. Blood flow present within ovary on color Doppler. . Ovary size: 3.5 x 1.6 x 2.4 cm CUL-DE-SAC: Unremarkable. No significant free fluid. BLADDER: Unremarkable. OTHER: None. IMPRESSION: 1. Several polyps suspected within the endometrial cavity; see details above. 2. Normal appearance of the ovaries with both containing several follicles. Final Dictated by: Favio Louis MD Dictated DT/TM: 02/19/25 4:16 Signed (Electronic Signature): Favio Louis MD 02/19/25 4:28 pm Technologist: [facility] hCG Quantitativeon 5 hCG Quantitative 0.6 mIU/mL Normal 0.0-0.6 [facility] Comment on above: Result Comment: Post -Menopausal Reference Range is: 0.1-11.6 mIU/mL Performed By: #### 1 [id number], 95753272, 7664446, 10606834, 8850011, 31579955, 7577198, 3218655, [id number] ####[facility] (DEFAULT)[address] [place] [address] Employee Health Noteon 02-02 Employee Health Note [id number] .00OTGTIFF [facility] hCG Quantitativeon 5 hCG Quantitative 37.8 mIU/mL High 0.0-0.6 [facility] Comment on above: Result Comment: Post -Menopausal Reference Range is: 0.1-11.6 mIU/mL Performed By: #### 2 [id number], [id number], [id number] #### [facility] ([facility]) [address] [place] [address] Coding Summaryon 01-23-2025 Coding Summary HTMLBase 64 OmtirixtJOo5sSe+PGhlY WQ+LV1TQIAcA54ujTMfeA 5pD1PUTQeHHnxrSKCFYXa HSjXqgjOiPW6ycJKdPUNy IC8+OS0nLOMhVgonuZDgn 9I9hYC5N28flw0aORpfyL W9QUXxDiUjzvqic9fmhUo 6IDcuNmluOyBt QBKohW91KSP0oL59Jy72e YRqwCKgu2vqcBo8RwHpEK RxYBH8vXgcWLkun2UsXFT xG38gcBZco3Q9 BHWiuHkzmXMdXsCruMM7x Z0wGIbqwugil5xdgrlzQr l4db79oITdd4G0yQH9Y0G fhqU1XARzvXRe KnnwnVSIyN1curfws0gnk cgvOoPlBBPqGKx3JMw4FR SbqLwgTjMaWG04YKV4WDD pgpVnS8JfMOYo qXnjKcC7w1O7Sx2OB4UZJ dxkP0DMUTBPAHsheEK+PC 89ii74B0ZqTsbdXys0LRH bUTH8eOE6dF8m EHGhMWuzm6W2bMJ0Q2Ovx pTknk3eh8faZCHcLKtzY8 0isUXpc5N9DIMqtRG4MXC utVpgVlMcsS43 Oyc+FMVovTltt3HgOppby 3mjf4xyjZu9FdweVTEhhb MdxYwjHAC2o3HmTr1mEJB ltVL2uNV1rM5f FpWqXiA8PYhaA544JvRjp RDjBgbfE46lK0QhdPE+PH UmEle5JCGokSljMR9vE0A hZGRpbmctbGVm sPgxKM4lHXPwtogtSKDzp A3uAJBiT7k5AjBfCdD2OE xgF5CxOGEoxxobQh50xA9 gBhKmMvP7GKup T5YckrM7HBNamMGzXCojT ZN1M31he4M2AYCoQFFdCA U5rDA2uJ8nwKdavrxdcYR mdDsgdmVydGlj IRiyUKnjW794BATtsXrdU kNvZGluZyBEYXRlOiAgMD YvMDQvMjAyNTwvdGQ+PHR uEZM2hTehFSHf lFFtDRmmVn0ptCxfpOxoI Y0fUGQndagaFWNslS4bWF MfqGYosLfqCF1nGJBblfn ju441RjEsYKR9 KBGbpCTnH2JuqE6gBlUxX DIxRQGnM5DksFDyUQfwL7 49TCwoNwY6GHYymsDrX7U sLWFsaWduOiB0 u4U7Fg6Fm1OqztyyO2Oxe HPaXhYfPgzqDQh7U9JaTy wvdHI+HH33VGMjBL99EIx 7MPK5mDveEApz XTKsZ7StuR3xDzWdGJCwF GRkOyc+PHRhYmxlIHdpZH RoPScxMDAlJyBzdHlsZT0 lAd2kHMTcPJDd eNcxrKIgUeZso5ewYJOrR OhqCC0rzNzrZ9AtqAN4FV Qmi9u9Dn11J15bC7OgbAO +NYDhbOM7fZA3 nT6rGrSnNiR8FEzmP428M kEzlDKhWusue1hnl8mohS o8IqW3VHNoeeJeuSqrHFL 9v2EwTj88I08e IHdpZHRoPSIxNSUiIHZhb Lwyed7huW2sQq4+PGNvbC G4wFN7hN1oQhYeJzH8EWg pC956MjOrbRXp Wbtrq2zsl6qqsJh1FtUcH DClqxQukEymUSZ5r8EoFv 80A8ZjmKfoa5XaOba1th7 0nPRpj6T3yZO1 L3TsYNXduetozSCyuVbeG Z3iELMriqafPWDcrR9qCN LlG8m9MvXuBaG4XNfbP0C uveE2INThsACy BDHctQXUqD0hlfgmw5vjb rjlCpHjSXWiJHo5AMu5XY WwmDtfXhVtLEW7SoG3OLX 6kXIyfQ4ycKlj shnmtC1nQfi+VRA3nUYbw EOVXE9nWpbesJZ+PHRkIH W0eLhpEIhtOPQaiD8jKVD aK7i9SpZgDdT4 ROtgY9OdogH7DGIsyZBnA RSujYWOmJ9sortxc8rhdv wwNkXkWVVoUSn2QSw4PIS saWduOiBsZWZ0 CyH5IDY5uXShiF1bxCeax zlihF8gCpg+QmlydGggRG L1ANq3M9TcSht2CBReaDh zUW7xmNUoLAty Xw6jfTswkXcbYW2iRXXpf tonx991TkFnr8mwDZKzaN VjLXmxXOZ4L69ht9I9KLH wWABxCEI3tLD0 mW3yvHbfjqvdgEWkjXhyp zVstOirGNddOWgiB546HZ YirTupZqJhDBg1V8RzJqu 7ANDgmYlxWU8p eMHhHCutDq9lnBliyZqyQ J5qZSMonwjgz830LrHnx6 yjPHIekVJqMIttTAQ8Z43 mx7M1YHNdYNVn EYT1yEV5xZ7ugZqbrmsyr GVmdDsgdmVydGljYWwtYW fsN264RGJumDhwUuUbpBv 0M7JiQsv3BKLx uDacEO9lwQVpRJsqSk0ea ZdwnXpgPC5dROKzlgxfx0 08LyAvy1jcKOEllQXwWLl cGIS0E02tn0S3 XYQdNTMoUEW3cAZ4oH3ih GlnbjogbGVmdDsgdmVydG ixFVmbDInjM177ZUXikAd nPlBhdGllbnQg GXeeBEw6T3JnCjdilTH+P S06KACcQN27jBOizCZzw7 lioRy2SlShBUCvASW0uGn tNWocb1JuQXGs M56jbRIih3L6DKJwtEesl MHeCbMusJW8aG9aIJuzsy jtx0gtwioaZqgrp4eror5 3cY17H89lSPmn ZHRoPSIzMCUiIHZhbGlnb s9olV3xTq5+VGJuxYZ4rQ G9lX1gTUPiZfL7UYtgV33 9InRvcCIvPjxj d1nca8haqZm2EyU9DWQck dOvqEefZOQ3p7NmYd53R3 9sIHdpZHRoPSIyMCUiIHZ gdFkmbj6wxG1w Ii8+YCXkkXO6jMV2dF2yF yLzVhR4CZxpP515ZsThyL VjPgciY29aC6SjvGT+PHR oBcu2QTQvqAmp BE7rdZHqVFpwSv9uGGA1P kRuUxMcAIypB9TiPNYvvn nzzhwfzOA8CERwASTdoM1 4Fd0cpNbrSFQe jSTMfG2vistwu8gnfzzzT bLsHUZdDVf4AQx6ODHcaL plSjKuPKL6PmF8SKE9xMV fkP5zpUuyiojq bN8nW5BzNLXwjglxSq21a J0eOkOqPdF4EPpzVfk+Qk 9MTEVOQkFDSEVSLCBCUkl CW7YNJZ0TKrd4 C8WfOkd3AKLboQuzRB0oh YEgSTihJt5sePisbTdhBK 8bTGPhgzchELVnbB6sYUC ssQYlmAgtPY4w FMNqbupij561CzSdWAN1R UMfhQEjT1TtiZ6tEgWlNT HoKJKbV8HkoOOmEWamW85 5OJtiHgI2YHLv qsRjV3WpYLBprIkhJeS7z 6V1Ro4rRH6uJT5eDCckPP 50XH32uKXvb0W8kJE8L4J hZGRpbmctcmln rUO6DIQgSMOegV71dLErF MvvVo0dc9J2n134YWGcKR SyhW96Gj3spKnuATLvsUA XlN8jrmlee6wj vlcoQwFvIVQvJTm7MOm5V WLvkStuOhHkOGF4SbE7VP H0rYNtcJ3hiDujkvgftC3 wOyc+MzQgWWVh xnD7T8DhVob8DIRkwQgeH O7azCTzGPmbEh4uuTrdbC jhYV5mGXKvslpmIISryY9 nLWJvdHRvbTog RU8vJBArxllfy349HsNrK GS1GDZjyZVzP0QkiM3gTl JeHXDfPKXzT4EykJQpXOz uS038PAuuMiG1 QXBiubMhU5XxUGYzmQiwH iW0q6J2Vb9SSP5VORU1Q0 IhAvw5XJQkkHuwIQ1yxXD fCXbqSw6wqJah pCkfKH1lVNElylthYSPxl Q1vISRqtSTqyJxsPA4bWS Hvqvcub071LzJuNLY2PEK jdNKiH7ZmzO2u KiIyZMZyMOPqL0ElxZWiR NfxB068WUgbQxA8ODObkg LdT3TsOKHpdZslOsI7x2H 5Ru6BVQuapFZ+ WC96wu33C5LuInevKqn7F LJaKVI4bBC3oH6aNKAmUQ ysb5D2rKK9W7YjqmMjga6 ow3apKJBnAXnk I94cqYGma8Q3TYXimUT8A WXfqCijNsUphR51Zgn+PG SycUhjq7BbAoupb9xcb0b bmIj7GeEuRFLc poXsgRmtQVH1c3QjLh58Z 29sIHdpZHRoPSIzMCUiIH SxcWarqo9ipZ2bTk3+PGN osMJ7kVB8yG6i GaDiHrC5IUweN060GtUxr RPkRanac8jyv5tngUn0Bs BwCUPpavXmuGobMWB2j6E oGa20J2EfhBci o0LoVzd3di73iNYnp1U7b UC3C1ZxTJRafsavmSSwpA uxTI6gLTAwjdmfYHMoxL3 yMRQtR5y8AtHt QxZ5HGtrY6ZagyP7DBMkk UMmPNFwvPFGsG6mpwigb7 yjddeuHlGoHVHkYMt4KXl 0LWFsaWduOiBs FUJ7ZxU1CCU4jTOopB0ek CleuybshP3zYmq+UGh5c2 sukEIcVQ3erIG1MZ49YX0 9dTSjq6V2nEG1 D4GgTKOnnycezucsrGM7R UXlCJJjuY13Hp6fdMrmAc 1oQTCxXOW7LQAozCFyG8E fwW0oOaNlFDWd SVHdQ6RyzMOhTGvvT737C ZjsKyZ9OQOkupSoF8HdNN BvmSouUjE6y1R9Io8MEB6 0FF79YE13lXFd l4M4iGO6O5CiKZPfslkvs rdefXL3ZZGoRTLzhI22If 5afWgiIi9rDFWaEDP6NWC ouXHsP4AwqA6i KeAoRUGnMZGbD0VblRBbU SnfI020AWjwFrP1ANKaib EjI4IoHPVsoCpkLdM4c2B 6Lm8ZPv27RO20 YT96yVVgt0M5hLU7C9KxV TLibrfshqxskWZ8TNUcUS FhoM78Fp1msEcrAk3qVOD oBWS0GNXiyDMr V4SvwI6hFoEhSXKpGAPoF 0SjuMDqNOrnA192CTwlBu U3ORXeflCvR5NqHEIkgZa dJwI0w5U9Bw9M GPrunmm2L3WdXwpsgWU+P S28MQIvJX25jIBnpSHxy1 swvZr9VlXiNQWsDWN1lEg lZGzpq6ZiKUNu Y29 (more content not included)... Normal [facility] Provider Orderson 01-17-2025 Provider Orders [id number] #1.00OTGTIFF Normal [facility] hCG Quantitativeon 5 hCG Quantitative 1201.8 mIU/mL High 0.0-0.6 [facility] Comment on above: Result Comment: Post -Menopausal Reference Range is: 0.1-11.6 mIU/mL Performed By: #### 7 [id number], [id number], [id number] #### [facility] (DEFAULT) [address] [place] [address] QuantiFERON-TB Gold Pluson 0 09-21-2024 QuantiFERON-TB Gold Plus Negative Invalid Interpretation Code Negative [facility] Comment on above: Result Comment: No r esponse to M tuberculosis antigens detected. Infection with M tuberculosis is unlikely, but high risk individuals should be considered for additional testing (ATS/IDSA/CDC Clinical Practice Guidelines, 2017). The reference range is an Antigen minus Nil result of <0.35 IU/mL. Chemiluminescence immunoassay methodology Performed At: [address] [id number] Sujata Lanier PhD Ph:[phone] Performed By: #### 2 [id number], [id number], [id number] #### [facility] (DEFAULT) [address] [place] [address] QuantiFERON Incubation Incubation performed. Inv alid Interpretation Code [facility] Comment on above: Result Comment: Perf ormed At: [address] [place], [place] [id number] Sujata Lanier PhD Ph:[phone] Performed By: #### 2 [id number], [id number], [id number] #### [facility] (DEFAULT) [address] [place] [address] HBSab Qnt LCon 09-20-2024 Hep B Surf Ab Quant LC 8190.0 mIU/mL Invalid Interpretation Code Immunity>10 [facility] Comment on above: Result Comment: Resu lts confirmed on dilution. Status of Immunity Anti-HBs Level Inconsistent with Immunity 0.0 - 10.0 Consistent with Immunity >10.0 Performed At: [address] [id number] Sujata Lanier PhD Ph:[phone] Performed By: #### 1 [id number], [id number], [id number] #### [facility] (DEFAULT) [address] [place] [address] Lab - Toxicology Resultson 0 09-20-2024 Lab - Toxicology Results [id number]#1 .00OTGTIFF Normal [facility] Measles/Mumps/Rubella Immuni ty LCon 09-20-2024 Mumps Abs, IgG LC <9.0 Low Immune >10.9 [facility] Comment on above: Result Comment: Nega tive <9.0 Equivocal 9.0 - 10.9 Positive >10.9 A positive result generally indicates past exposure to Mumps virus or previous vaccination. Performed At: [address] [id number] Sujata Lanier PhD Ph:[phone] Performed By: #### 1 [id number], [id number], [id number] #### [facility] (DEFAULT) [address] [place] [address] Rubella Antibodies, IgG LC 1.41 index Invalid Interpretation Code Immune >0.99 [facility] Comment on above: Result Comment: Non- immune <0.90 Equivocal 0.90 - 0.99 Immune >0.99 Performed By: #### 7 [id number], [id number], [id number] #### [facility] (DEFAULT) [address] [place] [address] Rubeola Ab, IgG, EIA LC 56.3 AU/mL Invalid Interpretation Code Immune >16.4 [facility] Comment on above: Result Comment: Nega tive <13.5 Equivocal 13.5 - 16.4 Positive >16.4 Presence of antibodies to Rubeola is presumptive evidence of immunity except when acute infection is suspected. Performed By: #### 5 [id number], [id number], [id number] #### [facility] (DEFAULT) [address] [place] [address] Provider Orderson 09-19-2024 Provider Orders [id number]#1 .00OTGTIFF Normal [facility] Triage Panel 10on 09-19-2024 Drug Screen Complete Collected [facility] [place] Comment on above: Performed By: #### 2 [id number] ####[facility] (DEFAULT)[address] [place] [address] Family Medicine Office/Clini c Noteon 04-04-2024 Family Medicine Office/Clinic Note Family Medicine Office/Clinic Note HPI Staff Melony is a 33 year old female presenting [...] Never Smokeless Tobacco Use:. Cigarettes, 04/04/2024 Normal [facility] Comment on above: Result Comment: Elec tronically Signed By: Vera Eubanks\.br\Date and Time Signed: 04/04/24 16:26 EDT HEP B SURFACE ANTIGEN SCREEN on 12-08-2022 HBsAg Screen Negative Normal Negative [facility] Comment on above: Performed By: #### H BSANS #### [facility] [address] [place] [address] Dr. Desmond Sow HEPATITIS C VIRUS AB W/ REFL EX QUANTon 12-08-2022 HCV AB Non-Reactive Normal Non Reactive [facility] Comment on above: Performed By: #### H CVPCRR #### [facility] [address] [place] [address] Dr. Desmond Sow Interpretation: Comment Normal [facility] Comment on above: Result Comment: Not infected with HCV unless early or acute infection is suspected (which may be delayed in an immunocompromised individual), or other evidence exists to indicate HCV infection. Performed By: #### H CVPCRR #### [facility] [address] [place] [address] Dr. Desmond Sow HIV 1 AND 2 WITH REFLEXon HIV Screen 4th Generation wRfx Non-Reactive Normal Non Reactive [facility] Comment on above: Result Comment: HIV Negative HIV-1/HIV-2 antibodies and HIV-1 p24 antigen were NOT detected. There is no laboratory evidence of HIV infection. Performed By: #### H IV12 #### [facility] [address] [place] [address] Dr. Desmond Sow RPR QUANTon 12-08-2022 Rapid Plasma Reagin, Quant Non-Reactive Normal NonRea<1:1 [facility] Comment on above: Result Comment: Plea Note: This test does not meet current guidelines for screening and diagnosis of syphilis. This test is intended for following treatment response in patients being treated for syphilis infection. To screen for syphilis infection, a reflex cascade that includes both RPR and a treponema-specific assay should be utilized, such as Treponema pallidum (Syphilis) Screening [place] (683062) or Rapid Plasma Reagin (RPR) Test With Reflex to Quantitative RPR and Confirmatory Treponema pallidum Antibodies (144326). Performed By: #### T SH #### [facility] [address] [place] [address] Dr. Desmond Sow RUBELLA AB IGGon 12-08-2022 Rubella Antibodies, IgG 1.18 index Normal Immu ne >0.99 [facility] Comment on above: Result Comment: Non- immune <0.90 Equivocal 0.90 - 0.99 Immune >0.99 Performed By: #### R UBIGG #### [facility] [address] [place] [address] Dr. Desmond Sow BOX TEST SENT OUTon 12-08-19 23 SENT TO REF LAB 12/07/2022 Normal [facility] Comment on above: Performed By: #### T SH #### [facility] [address] [place] [address] Dr. Desmond Sow CBC AUTO DIFFon 12-07-2022 BASO # 0.1 103/ul Normal 0.0-0.1 [facility] Comment on above: Performed By: #### T SH #### [facility] [address] [address] [address] Desmond Sow Basophils/100 WBC (Bld) 0.8 % Normal 0.2-2.0 [facility] Comment on above: Performed By: #### T SH #### [facility] [address] [place] [address] Dr. Desmond Sow EO # 0.3 103/ul Normal 0.0-0.7 [facility] Comment on above: Performed By: #### T SH #### [facility] [address] [place] [address] Dr. Desmond Sow Eosinophils/100 WBC (Bld) 2.8 % Normal 0.9-7.0 [facility] Comment on above: Performed By: #### T SH #### [facility] [address] [place] [address] Dr. Desmond Sow Erythrocyte distribution width (RBC) [Ratio] 14.5 % Normal 11.0-15.0 [facility] Comment on above: Performed By: #### T SH #### [facility] [address] [place] [address] Dr. Desmond Sow Hematocrit (Bld) [Volume fraction] 40.1 % Normal 36.0-48.0 [facility] Comment on above: Performed By: #### T SH #### [facility] [address] [place] [address] Dr. Desmond Sow Hemoglobin (Bld) [Mass/Vol] 13.1 g/dL Normal 12.0-16.0 [facility] Comment on above: Performed By: #### T SH #### [facility] [address] [place] [address] Dr. Desmond Sow IG # 0.05 10e3/ul Critically high 0.00-0.03 [facility] Comment on above: Performed By: #### T SH #### [facility] [address] [place] [address] Dr. Desmond Sow IG % 0.4 % Normal 0.0-0.5 [facility] Comment on above: Performed By: #### T SH #### [facility] [address] [place] [address] Dr. Desmond Sow LYMPH # 2.5 103/ul Normal 1.2-3.8 [facility] Comment on above: Performed By: #### T SH #### [facility] [address] [place] [address] Dr. Desmond Sow Lymphocytes/100 WBC (Bld) 21.9 % Normal 20.5-60.0 [facility] Comment on above: Performed By: #### T SH #### [facility] [address] [place] [address] Dr. Desmond Sow MANUAL DIFF REQ NO Normal [facility] Comment on above: Performed By: #### T SH #### [facility] [address] [place] [address] Dr. Desmond Sow MCH (RBC) [Entitic mass] 27.3 pg Normal 26.7-34.0 [facility] Comment on above: Performed By: #### T SH #### [facility] [address] [place] [address] Dr. Desmond Sow MCHC (RBC) [Mass/Vol] 32.7 g/dL Normal 29.9-35.2 [facility] Comment on above: Performed By: #### T SH #### [facility] [address] [place] [address] Dr. Desmond Sow MCV (RBC) [Entitic vol] 83.7 fL Normal 81.0-99.0 [facility] Comment on above: Performed By: #### T SH #### [facility] [address] [place] [address] Dr. Desmond Sow MONO # 0.8 103/ul Normal 0.3-0.8 [facility] Comment on above: Performed By: #### T SH #### [facility] [address] [place] [address] Dr. Desmond Sow Monocytes/100 WBC (Bld) 7.0 % Normal 1.7-12.0 [facility] Comment on above: Performed By: #### T SH #### [facility] [address] [address] [address] Desmond Sow NEUT # 7.5 103/ul Critically high 1.4-6.5 [facility] Comment on above: Performed By: #### T SH #### [facility] [address] [address] [address] Desmond Sow Neutrophils/100 WBC (Bld) 67.1 % Normal 43.0-75.0 [facility] Comment on above: Performed By: #### T SH #### [facility] [address] [place] [address] Dr. Desmond Sow Platelet mean volume (Bld) [Entitic vol] 9.9 fL Normal 9.5-13.5 [facility] Comment on above: Performed By: #### T SH #### [facility] [address] [place] [address] Dr. Desmond Sow PLT 249 103/ul Normal 150-450 [facility] Comment on above: Performed By: #### T SH #### [facility] [address] [place] [address] Dr. Desmond Sow RBC 4.79 106/ul Normal 4.20-5.40 [facility] Comment on above: Performed By: #### T SH #### [facility] [address] [place] [address] Dr. Desmond Sow WBC 11.2 103/ul Critically high 4.0-11.0 [facility] Comment on above: Performed By: #### T SH #### [facility] [address] [place] [address] Dr. Desmond Sow CULTURE URINEon 12-07-2022 CULTURE URINE Culture Observations : NO GROWTH. Normal [facility] Comment on above: Performed By: #### T SH #### [facility] [address] [place] [address] Dr. Desmond Sow GLYCOHEMOGLOBIN A1Con 2022 ADA RECOMMENDATION SEE BELOW Normal [facility] Comment on above: Result Comment: ADA RECOMMENDED LIMIT 4.0 - 6.0 ADA THERAPEUTIC TARGET < 7.0 ACTION SUGGESTED > 7.0 Performed By: #### T SH #### [facility] [address] [address] [address] Desmond Sow Glucose [Mass/Vol] 91 mg/dL Normal [facility] Comment on above: Performed By: #### T SH #### [facility] [address] [place], [place] [address] Dr. Desmond Sow HbA1c (Bld) [Mass fraction] 4.8 % Normal 4.5-6.2 [facility] Comment on above: Performed By: #### T SH #### [facility] [address] [address] [address] Desmond Sow TSHon 12-07-2022 TSH 1.357 uIU/mL Normal 0.358-3.740 [facility] Comment on above: Performed By: #### T SH #### [facility] [address] [place] [address] Dr. Desmond Sow TYPE AND SCREENon 12-07-2022 TYPE AND SCREEN Negative Normal [facility] Comment on above: Performed By: #### T SH #### [facility] [address] [address] [address] Desmond Sow US PREG TVon 11-30-2022 [...] Single live intrauterine . Electronically authenticated by: FAVIO LOUIS Date: 2022-11-30 15:53 Normal [facility] INSULINon 08-28-2022 Insulin 7.2 uIU/mL Normal 2.6-24.9 [facility] Comment on above: Performed By: #### T SH #### [facility] [address] [place] [address] [id number] [address] Desmond Sow PROGESTERONEon 08-28-2022 Progesterone 19.1 ng/mL Normal [facility] Comment on above: Result Comment: Foll icular phase 0.1 - 0.9 Luteal phase 1.8 - 23.9 Ovulation phase 0.1 - 12.0 First trimester 11.0 - 44.3 Second trimester 25.4 - 83.3 Third trimester 58.7 - 214.0 Postmenopausal 0.0 - 0.1 Performed By: #### P INGRID #### [facility] [address] [place] [address] Dr. Desmond Sow ASYMPTOMATIC COVID-19 ANTIGE Non 08-24-2022 EUA Statement SEE BELOW Normal [facility] Comment on above: Result Comment: This test [...] sooner. Performed By: #### C VDAGA #### [facility] [address] [place] [address] Dr. Desmond Sow SARS-CoV-2 (COVID-19) RNA JES+probe Ql (Unsp spec) Negative Normal NEGATIVE [facility] Comment on above: Result Comment: Nega tive results are presumptive. They do not preclude infection and should not be used as the sole basis for treatment decisions. Additional confirmatory testing by a molecular method should be considered. Performed By: #### C VDAGA #### [facility] [address] [place] [address] Dr. Desmond Sow Covid-19 PCR (CVDTB)on 07-23 SARS-CoV-2 (COVID-19) RNA JES+probe Ql (Unsp spec) Detected Critically abnormal NOT DETECTED [facility] Comment on above: Result Comment: This test is not yet approved or cleared by the [place] FDA. When there are no FDA-approved or cleared tests available, and other criteria are met, FDA can make tests available under an emergency access mechanism called an Emergency Use Authorization (EUA). The EUA for this test is supported by the Marketing Budget Analyst of Health and Human Service's declaration [...] used). Performed By: #### C VDTB #### [facility] [address] [place] [address] Dr. Desmond Sow INFLUENZA A AND B AGon 08-[facility] SEE BELOW Normal [facility] Comment on above: Result Comment: Nega tive for Flu A protein angiten. Infection due to Flu A cannot be ruled out. Flu A angiten in the sample may be below the detection limit of the test. Performed By: #### I NFLUAB #### [facility] [address] [place] [address] Dr. Desmond Sow INFLUBNEG SEE BELOW Normal [facility] Comment on above: Result Comment: Nega tive for Flu B protein antigen. Infection due to Flu B cannot be ruled out. Flu B antigen in the sample may be below the detection limit of the test. Performed By: #### I NFLUAB #### [facility] [address] [place] [address] Dr. Desmond Sow INFLUENZA A AG Negative Normal NEGATIVE SEE COMMENT [facility] Comment on above: Performed By: #### I NFLUAB #### [facility] [address] [place] [address] Dr. Desmond Sow INFLUENZA B AG Negative Normal NEGATIVE SEE COMMENT [facility] Comment on above: Performed By: #### I NFLUAB #### [facility] [address] [address] [address] Desmond Sow PREG QUANT HCGon 01-15-2022 HCG QUANT <1 Normal [facility] Comment on above: Performed By: #### T SH #### [facility] [address] [address] [address] Desmond Sow HCG RANGE SEE BELOW Normal [facility] Comment on above: Result Comment: 5-50 0-1 WEEK 40-300 1-2 WEEKS 100-1,000 2-3 WEEKS 500-6,000 3-4 WEEKS 5,000-200,000 1-2 MONTHS 10,000-100,000 2-3 MONTHS 3,000-50,000 2ND TRIMESTER 1,000-50,000 3RD TRIMESTER Performed By: #### T SH #### [facility] [address] [place] [address] Dr. Desmond Sow XR HYSTEROSALPINGO EXPon XR [...] performed by Dr. Gardner. Electronically authenticated by: FAVIO LOUIS Date: 2022-01-15 12:39 Normal [facility] PROGESTERONEon 01-06-2022 Progesterone 21.4 ng/mL Normal [facility] Comment on above: Result Comment: Foll icular phase 0.1 - 0.9 Luteal phase 1.8 - 23.9 Ovulation phase 0.1 - 12.0 First trimester 11.0 - 44.3 Second trimester 25.4 - 83.3 Third trimester 58.7 - 214.0 Postmenopausal 0.0 - 0.1 Performed By: #### P ROGES #### [facility] [address] [address] [address] Desmond Sow Vital Signs Date Time Vital Sign Value Performing Clinician Facility 05-06-2025 08:34-0400 Body mass index (BMI) [Ratio] 34.54 kg/m2 Fannie Jj DO Work Phone: [facility] 05-06-2025 08:34-0400 Body weight 97.07 kg Fannie Jj DO Work Phone: [facility] 05-06-2025 08:34-0400 Diastolic blood pressure 70 mm[Hg] Fannie Jj DO Work Phone: [facility] 05-06-2025 08:34-0400 Systolic blood pressure 120 mm[Hg] Fannie Jj DO Work Phone: [facility] 04-12-2025 09:45-0400 Body height 167.6 cm [facility] 04-12-2025 09:44-0400 Body mass index (BMI) [Ratio] 35.21 kg/m2 [facility] 04-12-2025 09:44-0400 Body weight 98.94 kg [facility] 04-12-2025 09:44-0400 Diastolic blood pressure 72 mm[Hg] [facility] 04-12-2025 09:44-0400 Systolic blood pressure 122 mm[Hg] [facility] 02-27-2025 15:25-0400 Body mass index (BMI) [Ratio] 33.52 kg/m2 Fannie Jj DO Work Phone: [facility] 02-27-2025 15:25-0400 Body weight 97.07 kg Fannie Jj DO Work Phone: [facility] 02-27-2025 15:25-0400 Diastolic blood pressure 72 mm[Hg] Fannie Jj DO Work Phone: [facility] 02-27-2025 15:25-0400 Systolic blood pressure 122 mm[Hg] Fannie Jj DO Work Phone: [facility] 02-19-2025 08:49-0400 Body mass index (BMI) [Ratio] 33.85 kg/m2 Fannie Jj DO Work Phone: [facility] 02-19-2025 08:49-0400 Body weight 98.03 kg Fannie Jj DO Work Phone: [facility] 02-19-2025 08:49-0400 Diastolic blood pressure 74 mm[Hg] Fannie Jj DO Work Phone: [facility] 02-19-2025 08:49-0400 Systolic blood pressure 112 mm[Hg] Fannie Jj DO Work Phone: [facility] 03-19-2024 16:44-0400 Body height 170.18 cm [facility] 03-19-2024 16:44-0400 Body mass index (BMI) [Ratio] 33.8 kg/m2 [facility] 03-19-2024 16:44-0400 Body temperature 98.5 [degF] [facility] 03-19-2024 16:44-0400 Body weight 97.97 kg [facility] 03-19-2024 16:44-0400 Diastolic blood pressure 96 mm[Hg] [facility] 03-19-2024 16:44-0400 Heart rate 70 /min [facility] 03-19-2024 16:44-0400 Respiratory rate 18 /min [facility] 03-19-2024 16:44-0400 SaO2% (BldA) [Mass fraction] 96 % [facility] 03-19-2024 16:44-0400 Systolic blood pressure 137 mm[Hg] [facility] 03-07-2024 15:36-0400 Body height 170.18 cm [facility] 03-07-2024 15:36-0400 Body mass index (BMI) [Ratio] 32.8 kg/m2 [facility] 03-07-2024 15:36-0400 Body temperature 98 [degF] [facility] 07-17-2024 15:36-0400 Body weight 95.25 kg [facility] 03-07-2024 15:36-0400 Diastolic blood pressure 98 mm[Hg] [facility] 03-07-2024 15:36-0400 Heart rate 75 /min [facility] 03-07-2024 15:36-0400 Respiratory rate 16 /min [facility] 03-07-2024 15:36-0400 SaO2% (BldA) [Mass fraction] 97 % [facility] 03-07-2024 15:36-0400 Systolic blood pressure 147 mm[Hg] [facility] Encounters Encounter Date Encounter Type Care Provider Facility Start: 05-20-2025 End: 05-20-2025 ambulatory FANNIE JJ Not Available Start: 05-06-2025 End: 05-06-2025 Bamboo flowsheet Fannie Jj DO Work Phone: [facility] Start: 05-06-2025 End: 05-06-2025 Bamboo flowsheet Fannie Jj DO Work Phone: [facility] Start: 05-06-2025 End: 05-06-2025 flow sheet Fannie Jj DO Work Phone: [facility] Comment on above: Screening, , for anatomic survey ([facility]) (Primary Dx); 12 weeks gestation of ([facility]); First trimester ([facility]); Subchorionic hemorrhage of placenta in first trimester ([facility]) Start: 05-06-2025 End: 05-06-2025 ambulatory FANNIE JJ Not Available Start: 05-02-2025 End: 05-02-2025 ambulatory Vera Meng Facility:[facility] Start: 04-12-2025 End: 04-12-2025 Office outpatient visit 5 minutes Jj Nurse [facility] P[facility]IN[facility] Comment on above: GA: 8w4d Start: 04-12-2025 End: 04-12-2025 ambulatory FANNIE JJ Not Available Start: 02-27-2025 End: 02-27-2025 ambulatory FANNIE JJ Not Available Start: 02-27-2025 End: 02-27-2025 Office outpatient visit 15 minutes Fannie Jj DO Work Phone: [facility] Comment on above: Pre-op examination; PCOS (polycystic ovarian syndrome); Uterine polyp Start: 02-27-2025 End: 02-27-2025 Preprocedural examination done Fannie Jj DO Work Phone: [facility] Start: 02-19-2025 End: 02-19-2025 ambulatory FANNIE R JJ Facility:[facility] Start: 02-19-2025 End: 02-19-2025 Bamboo flowsheet Fannie Jj DO Work Phone: [facility] Start: 02-19-2025 End: 02-25-2025 Bamboo flowsheet Fannie Jj DO Work Phone: [facility] Start: 02-19-2025 End: 02-25-2025 Clinisync Result Encounter Fannie Jj DO Work Phone: [facility] External Department Unsolicited Start: 02-19-2025 End: 02-19-2025 ambulatory FANNIE R JJ Facility:[facility] Start: 02-19-2025 End: 02-19-2025 ambulatory FANNIE JJ Not Available Start: 02-19-2025 End: 02-19-2025 Patient encounter procedure Fannie Jj DO Work Phone: [facility] Work Phone: Start: 02-19-2025 End: 02-19-2025 Periodic preventive med est patient 18-39 yrs Fannie Jj DO Work Phone: [facility] Comment on above: Well woman exam with routine gynecological exam; PCOS (polycystic ovarian syndrome); Uterine polyp; Hormone imbalance Start: 01-17-2025 End: 01-17-2025 ambulatory FANNIE R JJ Facility:[facility] Start: 09-19-2024 End: 09-19-2024 ambulatory Vera Meng Facility:[facility] Start: 04-04-2024 End: 04-04-2024 ambulatory Vera L Taqueria Facility:[facility] Start: 03-19-2024 End: 03-19-[address] [facility] [place] Work Phone: Start: 03-19-2024 End: 03-19-2024 Patient encounter procedure [facility] Physician [facility] Work Phone: Start: 03-19-2024 ambulatory Vera Taqueria Facility:[facility] [place] Start: 03-07-2024 End: 03-07-2024 ambulatory [facility] Work Phone: Start: 03-07-2024 End: 03-07-2024 Patient encounter procedure [facility] Work Phone: Start: 12-07-2022 End: 12-08-[address] FANNIE GARDNER . Facility: Start: 11-30-2022 End: 12-01-[address] FANNIE GARDNER . Facility: Start: 08-27-2022 End: 08-28-[address] GODFREY MARTÍNEZ Facility: Start: 08-24-2022 End: 08-24-2022 ambulatory CHARLENE REYNOLDS Facility: Start: 08-19-2022 End: 08-19-2022 ambulatory CHARLENE REYNOLDS Facility: Start: 01-15-2022 End: 01-15-[address] FANNIE GARDNER . Facility:[facility] Start: 01-04-2022 End: 01-05-[address] FANNIE GARDNER . Facility: Procedures Date Procedure Procedure Detail Performing Clinician Start: 05-06-2025 Urnls dip stick/tabl et rgnt non-auto w/o micrscp Fannie Jj DO Work Phone: Start: 04-12-2025 End: 04-12-2025 Urnls dip stick/tablet rgnt non-auto w/o micrscp Fannei Jj DO Work Phone: Start: 02-19-2025 IGP,APTIMA HPV,AGE GDLN Fannie Gardner DO Work Phone: Plan of Treatment Date Care Activity Detail Author Start: 06-03-2025 End: 06-03-2025 Patient encounter procedure 06/03/2025 8:30 AM EDT Routine [facility] [address] [place] [id number] Fannie Gardner, DO [address] [place] [address] [facility] Start: 05-20-2025 End: 05-20-2025 Professional / ancillary services management 05/20/2025 8:30 AM EDT Ancillary Procedure RHEA PARKINSON [address] [place] [id number] [facility] Start: 05-06-2025 End: 08-05-2025 US for US OB 14+ weeks anatomy scan Imaging Routine Screening, , for anatomic survey ([facility]) Subchorionic hemorrhage of placenta in first trimester ([facility]) Expected: 05/06/2025, Expires: 08/05/2025 [facility] Work Phone: Comment on above: Expected: 05/06/2025 , Expires: 08/05/2025 Start: 05-06-2025 End: 05-06-2025 Patient encounter procedure RHEA PARKINSON Comment on above: Arrived Start: 04-12-2025 End: 04-12-2026 ABO/Rh ABO/Rh Lab Routine Missed menses , unspecified gestational age ([facility]) Expected: 04/12/2025 (Approximate), Expires: 04/12/2026 [facility] Comment on above: Expected: 04/12/2025 (Approximate), Expires: 04/12/2026 Start: 04-12-2025 End: 04-12-2026 Blood type and Indirect antibody screen panel - Blood Type and screen Lab Routine Missed menses , unspecified gestational age ([facility]) Expected: 04/12/2025 (Approximate), Expires: 04/12/2026 [facility] Work Phone: Comment on above: Expected: 04/12/2025 (Approximate), Expires: 04/12/2026 Start: 04-12-2025 End: 04-12-2026 Drugs of abuse panel - Urine by Screen method Rapid drug screen, urine Lab Routine , unspecified gestational age ([facility]) Encounter for supervision of normal first in first trimester ([facility]) Expected: 04/12/2025 (Approximate), Expires: 04/12/2026 [facility] Comment on above: Expected: 04/12/2025 (Approximate), Expires: 04/12/2026 Start: 04-08-2025 End: 04-08-2025 Patient encounter procedure 04/08/2025 8:50 AM EDT Office Visit [facility] [address] [place] [phone] Fannie Gardner, DO [address] [place] [address] [facility] Start: 02-27-2025 End: 02-27-2025 Patient encounter procedure 02/27/2025 3:00 PM EDT Consult [facility] [address] [phone] Fannie Gardner, DO [address] [place] [address] [facility] Start: 02-19-2025 End: 02-19-2026 Antimullerian hormone (AMH) Antimullerian hormone (AMH) Lab Routine Uterine polyp Hormone imbalance Expected: 02/19/2025 (Approximate), Expires: 02/19/2026 [facility] Comment on above: Expected: 02/19/2025 (Approximate), Expires: 02/19/2026 Start: 02-19-2025 End: 02-19-2026 DHEA DHEA Lab Routine PCOS (polycystic ovarian syndrome) Expected: 02/19/2025 (Approximate), Expires: 02/19/2026 [facility] Comment on above: Expected: 02/19/2025 (Approximate), Expires: 02/19/2026 Start: 02-19-2025 End: 02-19-2026 US Pelvis US Pelvis w/ TV Imaging Routine PCOS (polycystic ovarian syndrome) Uterine polyp Expected: 02/19/2025, Expires: 02/19/2026 [facility] Comment on above: Expected: 02/19/2025 , Expires: 02/19/2026 Bacteria identified in Urine by Culture Urine culture Microbiology Routine Missed menses Ordered: 04/12/2025 [facility] Comment on above: Ordered: 04/12/2025 CBC W Auto Different ial panel - Blood CBC and differential Lab Routine PCOS (polycystic ovarian syndrome) Ordered: 02/19/2025 [facility] Comment on above: Ordered: 02/19/2025 CBC W Auto Different ial panel - Blood CBC and differential Lab Routine Missed menses , unspecified gestational age ([facility]) Ordered: 04/12/2025 [facility] Comment on above: Ordered: 04/12/2025 Cytology Cervical or vaginal smear or scraping study Pap Smear Pathology and Cytology Routine Well woman exam with routine gynecological exam Ordered: 02/19/2025 [facility] Work Phone: Comment on above: Ordered: 02/19/2025 DHEA-sulfate DHEA-sulfate Lab Routine PCOS (polycystic ovarian syndrome) Ordered: 02/19/2025 [facility] Comment on above: Ordered: 02/19/2025 Follicle stimulating hormone Follicle stimulating hormone Lab Routine PCOS (polycystic ovarian syndrome) Ordered: 02/19/2025 [facility] Comment on above: Ordered: 02/19/2025 hCG, quantitative, hCG, quantitative, Lab Routine PCOS (polycystic ovarian syndrome) Ordered: 02/19/2025 [facility] Comment on above: Ordered: 02/19/2025 Hemoglobin A1c/Hemoglobin.total in Blood Hemoglobin A1c Lab Routine Hormone imbalance Ordered: 02/19/2025 [facility] Comment on above: Ordered: 02/19/2025 Hemoglobin A1c/Hemoglobin.total in Blood Hemoglobin A1c Lab Routine Missed menses , unspecified gestational age ([facility]) Ordered: 04/12/2025 [facility] Comment on above: Ordered: 04/12/2025 Hepatitis B virus surface Ag [Presence] in Serum or Plasma by Immunoassay Hepatitis B surface antigen Lab Routine Missed menses , unspecified gestational age ([facility]) Ordered: 04/12/2025 [facility] Comment on above: Ordered: 04/12/2025 Hepatitis C virus Ab [Presence] in Serum or Plasma by Immunoassay Hepatitis C antibody Lab Routine Missed menses , unspecified gestational age ([facility]) Ordered: 04/12/2025 [facility] Comment on above: Ordered: 04/12/2025 HIV-1/HIV-2 antigen/antibody combination immunoassay HIV-1 and HIV-2 antibodies Lab Routine Missed menses , unspecified gestational age ([facility]) Ordered: 04/12/2025 [facility] Comment on above: Ordered: 04/12/2025 Human papilloma viru s DNA [Presence] in Unspecified specimen by Probe with amplification HPV DNA probe, amplified Microbiology Routine Well woman exam with routine gynecological exam Ordered: 02/19/2025 [facility] Comment on above: Ordered: 02/19/2025 Luteinizing hormone Luteinizing hormone Lab Routine PCOS (polycystic ovarian syndrome) Ordered: 02/19/2025 [facility] Comment on above: Ordered: 02/19/2025 Reagin Ab [Presence] in Serum by RPR RPR Lab Routine Missed menses , unspecified gestational age ([facility]) Ordered: 04/12/2025 [facility] Comment on above: Ordered: 04/12/2025 Rubella antibody, IgG Rubella an tibody, IgG Lab Routine Missed menses , unspecified gestational age ([facility]) Ordered: 04/12/2025 [facility] Comment on above: Ordered: 04/12/2025 Thyrotropin [Units/volume] in Serum or Plasma TSH Lab Routine PCOS (polycystic ovarian syndrome) Ordered: 02/19/2025 [facility] Comment on above: Ordered: 02/19/2025 Thyroxine (T4) free [Mass/volume] in Serum or Plasma T4, free Lab Routine PCOS (polycystic ovarian syndrome) Ordered: 02/19/2025 [facility] Comment on above: Ordered: 02/19/2025 Payers Date Payer Category Payer Unknown 2024 Private Health Insurance [employer] [id number] 2022 Unknown [id number] 2019 Unknown [id number] 1990 Unknown [id number] 2.16.840.1.746989.3.579.2. 593 1990 Unknown [id number] 2.16.840.1.725253.3.579.2. 593 1990 Unknown [id number] 2.16.840.1.473516.3.579.2. 593 1990 Unknown [id number] 2.16.840.1.310642.3.579.2. 593 1990 Unknown [id number] 2.16.840.1.037154.3.579.2. 593 1990 Unknown [id number] 2.16.840.1.450103.3.579.2. 593 1990 Unknown [id number] 2.16.840.1.645763.3.579.2. 593 1990 Unknown [id number] 2.16.840.1.705948.3.579.2. 727 1990 Unknown [id number] 2.16.840.1.085422.3.579.2. 718 1990 Unknown [id number] 2.16.840.1.517297.3.579.2. 718 1990 Unknown [id number] 2.16.840.1.639059.3.579.2. 718 1990 Unknown [id number] 2.16.840.1.504935.3.579.2. 718 1990 Unknown [id number] 2.16.840.1.707758.3.579.2. 1259 1990 Unknown [id number] 2.16.840.1.999010.3.579.2. 1259 1990 Unknown [id number] 2.16.840.1.934101.3.579.2. 1259 1990 Unknown [id number] 2.16.840.1.911154.3.579.2. 1259 1990 Unknown [id number] 2.16.840.1.926159.3.579.2. 9 1990 Unknown [id number] 2.16.840.1.263702.3.579.2. 1259 Social History Date Type Detail Facility Tobacco smoking status [facility] Unknown if ever smoked [facility] Work Phone: Start: 1990 Sex Assigned At Female F [facility] Start: 03-19-2024 Tobacco smoking status [facility] Never smoked tobacco (finding) [facility] Tobacco smoking status [facility] Tobacco smoking consumption unknown [facility] Start: 1990 Sex assigned at Not on file N S Healthcare Gender identity Not on file [facility] Start: 02-25-2025 [facility] Goals Date Patient Goal Desired Activity /State Personal health goal History of Present illness Narrative 05-06-2025 Charlene Reynolds NP - 05/06/2025 8:30 AM EDT Note Date & Type Note Facility 05-06-2025 History of Presen t illness Narrative Reason for Appointment: Patient ID: Melony Soto is a 34 y.o. female who presents for Routine Visit Patient presents today for Return OB appointment. MEDICATIONS Current Outpatient Medications Medication Instructions ondansetron ODT (ZOFRAN-ODT) 4 mg, Oral, Every 6 hours PRN Jbsfcxmd-Dux-Th-FA ( 1 + IRON PO) 1 tablet, Daily ALLERGIES No Known Allergies PROBLEMS Active Ambulatory Problems Diagnosis Date Noted No Active Ambulatory Problems Resolved Ambulatory Problems Diagnosis Date Noted No Resolved Ambulatory Problems No Additional Past Medical History HISTORY PAST MEDICAL HISTORY SOCIAL HISTORY History reviewed. No pertinent past medical history. Social History Tobacco Use Smoking status: Not on file Smokeless tobacco: Not on file Substance Use Topics Alcohol use: Not on file Drug use: Not on file FAMILY HISTORY No family history on file. SURGICAL HISTORY History reviewed. No pertinent surgical history. REVIEW OF SYSTEMS Review of Systems: Review of Systems Constitutional: Negative. HENT: Negative. Eyes: Negative. Respiratory: Negative. Cardiovascular: Negative. Gastrointestinal: Negative. Genitourinary: Negative. Musculoskeletal: Negative. Skin: Negative. Neurological: Negative. All other systems reviewed and are negative. Hematological: Negative. Endocrine: Negative. Allergic/Immunologic: Negative. OBJECTIVE Objective: Physical Exam Constitutional: Appearance: Normal appearance. She is well-developed. Cardiovascular: Rate and Rhythm: Normal rate and regular rhythm. Pulmonary: Effort: Pulmonary effort is normal. Breath sounds: Normal breath sounds. Abdominal: General: Bowel sounds are normal. There is no distension. Palpations: Abdomen is soft. Tenderness: There is no abdominal tenderness. There is no guarding or rebound. Musculoskeletal: General: No swelling. Normal range of motion. Right lower leg: No edema. Left lower leg: No edema. Neurological: Mental Status: She is alert and oriented to person, place, and time. Skin: General: Skin is warm and dry. Psychiatric: Mood and Affect: Mood normal. Behavior: Behavior normal. Vitals and nursing note reviewed. Exam conducted with a diabetic educator present. Vitals: Estimated body mass index is 34.54 kg/m as calculated from the following: Height as of 04/12/25: 5' 6 . Weight as of this encounter: 214 lb. BP: 120/70 Patient's last menstrual period was 02/11/2025. ASSESSMENT & PLAN ICD-10-CM 1. 12 weeks gestation of ([facility]) Z3A.12 POCT urinalysis dipstick manually resulted 2. First trimester ([facility]) Z34.91 POCT urinalysis dipstick manually resulted Return OB: Patient presents today for a routine obstetrics appointment. Patient is currently 12w0d . Patient states she is doing well but has complaints of being tired due to current . Patient has verbalizes frequent movement. labor precautions was discussed/given and patient was instructed to perform kick counts three times a day. Orders Placed This Encounter Procedures POCT urinalysis dipstick manually resulted Follow Up: Patient is to return to office in 4 week for routine OB appointment. Documented by Charlene Reynolds NP on behalf of: Fannie Gardner DO documented in this encounter [facility] History of Present illness Narrative 04-12-2025 Kimi Lopez MA - 04/12/2025 9:30 AM EDT Note Date & Type Note Facility 04-12-2025 History of Presen t illness Narrative Reason for Appointment: Patient ID: Melony Soto is a 34 y.o. female who presents for Amenorrhea Patient presents today for a Nurse OB Intake appointment. Patient is Unknown with a Estimated Date of Delivery: None noted. OB History Para Term AB Living 3 1 0 1 1 1 SAB IAB Ectopic Multiple Live Births 1 1 # Outcome Date GA Lbr Omero/2nd Weight Sex Type Anes PTL Lv 3 Current 2 06/13/23 36w4d 6 lb 8 oz M Vag-Spont Y TAD 1 SAB Current Medications: has a current medication list which includes the following prescription(s): canxdqrz-szg-vq-fa. Medical History: Active Ambulatory Problems Diagnosis Date Noted No Active Ambulatory Problems Resolved Ambulatory Problems Diagnosis Date Noted No Resolved Ambulatory Problems No Additional Past Medical History No family history on file. Social History Tobacco Use Smoking status: Not on file Smokeless tobacco: Not on file Substance Use Topics Alcohol use: Not on file Drug use: Not on file No past surgical history on file. No Known Allergies Vitals: Estimated body mass index is 35.21 kg/m as calculated from the following: Height as of this encounter: 5' 6 . Weight as of this encounter: 218 lb 2 oz. BP: 122/72 Patient's last menstrual period was 02/11/2025. Assessment/Plan Diagnoses and all orders for this visit: Missed menses - Type and screen; Future - ABO/Rh; Future - CBC and differential - Hemoglobin A1c - RPR - Rubella antibody, IgG - Hepatitis B surface antigen - Hepatitis C antibody - HIV-1 and HIV-2 antibodies - Urine culture - POCT , urine manually resulted - POCT urinalysis dipstick manually resulted , unspecified gestational age ([facility]) - Type and screen; Future - ABO/Rh; Future - CBC and differential - Hemoglobin A1c - RPR - Rubella antibody, IgG - Hepatitis B surface antigen - Hepatitis C antibody - HIV-1 and HIV-2 antibodies - Rapid drug screen, urine; Future Encounter for supervision of normal first in first trimester ([facility]) - Rapid drug screen, urine; Future Nurse Note: OB Intake: Patient presents today for first OB visit. Patients history has been reviewed in great detail including any potential risks. Patient signed consent forms and patient desires testing in both trimesters. Patient currently has no complaints and has been advised to drink 6-8 glasses of water a day, eat no raw or undercooked meat, and [facility]. Patient has also been advised to not change litter boxes and eat 6 small meals a day. Patient has been consulted regarding the do's and don'ts of . Patient was given labs and all questions and concerns were answered. Follow Up: Patient is to have labs drawn at directed and return to office for initial OB appointment with provider. Patient may call office as needed with any concerns or questions. Nurse Visit Completed by: Kimi Lopez MA documented in this encounter [facility] History of Present illness Narrative 02-27-2025 Ramila Charles - 02/27/2025 3:00 PM EDT Note Date & Type Note Facility 02-27-2025 History of Presen t illness Narrative Reason for Appointment: Patient ID: Melony Soto is a 34 y.o. female who presents for Pre-op Visit Patient presents today for Pre Op appointment. Patient is scheduled to undergo D&C Hysteroscopy, possible Myosure on 03-29-[address] Gardner at [facility]. MEDICATIONS Current Outpatient Medications Medication Instructions Ifhqgsvr-Yfp-Xk-FA ( 1 + IRON PO) 1 tablet, Oral, Daily ALLERGIES No Known Allergies PROBLEMS Active Ambulatory Problems Diagnosis Date Noted No Active Ambulatory Problems Resolved Ambulatory Problems Diagnosis Date Noted No Resolved Ambulatory Problems No Additional Past Medical History HISTORY PAST MEDICAL HISTORY SOCIAL HISTORY No past medical history on file. Social History Tobacco Use Smoking status: Not on file Smokeless tobacco: Not on file Substance Use Topics Alcohol use: Not on file Drug use: Not on file FAMILY HISTORY No family history on file. SURGICAL HISTORY No past surgical history on file. REVIEW OF SYSTEMS Review of Systems: Review of Systems Constitutional: Negative. HENT: Negative. Eyes: Negative. Respiratory: Negative. Cardiovascular: Negative. Gastrointestinal: Negative. Genitourinary: Negative. Musculoskeletal: Negative. Skin: Negative. Neurological: Negative. All other systems reviewed and are negative. Hematological: Negative. Endocrine: Negative. Allergic/Immunologic: Negative. OBJECTIVE Objective: Physical Exam Constitutional: Appearance: Normal appearance. She is well-developed. Cardiovascular: Rate and Rhythm: Normal rate and regular rhythm. Pulmonary: Effort: Pulmonary effort is normal. Breath sounds: Normal breath sounds. Abdominal: General: Bowel sounds are normal. There is no distension. Palpations: Abdomen is soft. Tenderness: There is no abdominal tenderness. There is no guarding or rebound. Musculoskeletal: General: No swelling. Normal range of motion. Right lower leg: No edema. Left lower leg: No edema. Neurological: Mental Status: She is alert and oriented to person, place, and time. Skin: General: Skin is warm and dry. Psychiatric: Mood and Affect: Mood normal. Behavior: Behavior normal. Vitals and nursing note reviewed. Exam conducted with a diabetic educator present. Vitals: Estimated body mass index is 33.85 kg/m as calculated from the following: Height as of 07/25/23: 5' 7 . Weight as of 02/19/25: 216 lb 1.9 oz. BP: No LMP recorded. ASSESSMENT & PLAN ICD-10-CM 1. Pre-op examination Z01.818 2. PCOS (polycystic ovarian syndrome) E28.2 3. Uterine polyp N84.0 Pre Op: Patient is doing well but has complaints of uterine polyp. I have discussed conservative management vs. surgical management with the patient in detail and patient desires surgical management at this time. Patient will undergo D&C Hysteroscopy, possible Myosure on 03/29/25. Surgical consents were signed, mmc was reviewed, and patient is to proceed to [facility] OR. Follow Up: Patient is to follow up between 1-2 weeks post operative to assess proper healing and recovery from procedure. Documented by Mar Fuller LPN on behalf of: Fannie Gardner DO documented in this encounter [facility] History of Present illness Narrative 02-19-2025 Mar Fuller LPN - 02/19/2025 8:30 AM EDT Note Date & Type Note Facility 02-19-2025 History of Presen t illness Narrative Reason for Appointment: Patient ID: Melony Soto is a 34 y.o. female who presents for Well Women Visit Patient presents today for Annual Exam. MEDICATIONS Current Outpatient Medications Medication Instructions Xmciwzai-Lfc-Ih-FA ( 1 + IRON PO) 1 tablet, Oral, Daily ALLERGIES No Known Allergies PROBLEMS Active Ambulatory Problems Diagnosis Date Noted No Active Ambulatory Problems Resolved Ambulatory Problems Diagnosis Date Noted No Resolved Ambulatory Problems No Additional Past Medical History HISTORY PAST MEDICAL HISTORY SOCIAL HISTORY History reviewed. No pertinent past medical history. Social History Tobacco Use Smoking status: Not on file Smokeless tobacco: Not on file Substance Use Topics Alcohol use: Not on file Drug use: Not on file FAMILY HISTORY No family history on file. SURGICAL HISTORY History reviewed. No pertinent surgical history. REVIEW OF SYSTEMS Review of Systems: Review of Systems Constitutional: Negative. HENT: Negative. Eyes: Negative. Respiratory: Negative. Cardiovascular: Negative. Gastrointestinal: Negative. Genitourinary: Negative. Musculoskeletal: Negative. Skin: Negative. Neurological: Negative. All other systems reviewed and are negative. Hematological: Negative. Endocrine: Negative. Allergic/Immunologic: Negative. OBJECTIVE Objective: Physical Exam Constitutional: Appearance: Normal appearance. She is well-developed. Genitourinary: Vulva normal. Breasts: Breasts are soft. Right: Normal. Left: Normal. Cardiovascular: Rate and Rhythm: Normal rate and regular rhythm. Pulmonary: Effort: Pulmonary effort is normal. Breath sounds: Normal breath sounds. Abdominal: General: Bowel sounds are normal. There is no distension. Palpations: Abdomen is soft. Tenderness: There is no abdominal tenderness. There is no guarding or rebound. Musculoskeletal: General: No swelling. Normal range of motion. Right lower leg: No edema. Left lower leg: No edema. Neurological: Mental Status: She is alert and oriented to person, place, and time. Skin: General: Skin is warm and dry. Psychiatric: Mood and Affect: Mood normal. Behavior: Behavior normal. Vitals and nursing note reviewed. Exam conducted with a diabetic educator present. Vitals: Estimated body mass index is 33.85 kg/m as calculated from the following: Height as of 07/25/23: 5' 7 . Weight as of this encounter: 216 lb 1.9 oz. BP: 112/74 No LMP recorded. ASSESSMENT & PLAN ICD-10-CM 1. Well woman exam with routine gynecological exam Z01.419 Pap Smear HPV DNA probe, amplified 2. PCOS (polycystic ovarian syndrome) E28.2 hCG, quantitative, TSH T4, free CBC and differential Follicle stimulating hormone Luteinizing hormone DHEA-sulfate DHEA US Pelvis w/ TV DHEA 3. Uterine polyp N84.0 US Pelvis w/ TV Antimullerian hormone (AMH) Antimullerian hormone (AMH) 4. Hormone imbalance E34.9 Hemoglobin A1c Antimullerian hormone (AMH) Antimullerian hormone (AMH) Orders Placed This Encounter Procedures HPV DNA probe, amplified US Pelvis w/ TV hCG, quantitative, TSH T4, free CBC and differential Follicle stimulating hormone Luteinizing hormone Hemoglobin A1c DHEA-sulfate DHEA Antimullerian hormone (AMH) Annual Wellness Exam: Patient presents today for routine annual exam. Patient states she has complaints of uterine polyps, discussing surgery to remove polyps. Pt given ultrasound to have obtained. Pt given labs to have obtained. Pt to be scheduled for D&C hysteroscopy with poss myosure. Patients vitals were reviewed and within normal limits. Growth and development is noted to be appropriate for age. Menstrual history is noted to be regular with no concerns reported. No mental health concerns was expressed. Pap Smear: Speculum was inserted into the vagina and pap was obtained without difficulty. HPV testing was performed per age guideline. Patient was advised that pap results could take anywhere from 7 to 10 days to receive and our office will reach out to the patient with those once we have them. Patient can also view results via [employer]. I reinforced importance of condom use for STI prevention. Patient declined cultures to be performed with today's visit. Breast Exam: Upon examination, clinical breast exam was noted to be normal. Patient was counseled on breast self-awareness, including the importance of knowing what is normal for her own breasts and promptly reporting any changes such as new lumps, skin dimpling, nipple discharge, or pain. Screening mammogram recommended annually beginning at age 40 or earlier if risk factors are present. Discussed signs and symptoms of breast cancer and when to seek medical attention. Answered all patient questions. Contraceptive Counseling (if applicable): Patient is currently using no control at this time as a form of contraceptive. Patient does not desire control at this time. Follow Up: Patient is to return to our office in one year for annual exam unless needed otherwise. Documented by Mar Fuller LPN on behalf of: Fannie Gardner DO documented in this encounter [facility] Evaluation note Note Date & Type Note Facility Evaluation note No assessment information availa ble [facility] Work Phone: Evaluation note Note Date & Type Note Facility Evaluation note Diagnosis Onset Date Contact dermatitis acute [facility] Work Phone: Evaluation note Note Date & Type Note Facility Evaluation note Diagnosis Well woman exam with routine gynecological exam Routine gynecological examination PCOS (polycystic ovarian syndrome) Polycystic ovaries Uterine polyp Polyp of corpus uteri Hormone imbalance documented in this encounter [facility] Evaluation note Note Date & Type Note Facility Evaluation note Diagnosis Pre-op examination PCOS (polycystic ovarian syndrome) Polycystic ovaries Uterine polyp Polyp of corpus uteri documented in this encounter [facility] Evaluation note Note Date & Type Note Facility Evaluation note Diagnosis Missed menses , unspecified gestational age ([facility]) Encounter for supervision of normal first in first trimester ([facility]) documented in this encounter [facility] Healthcare Evaluation note Note Date & Type Note Facility Evaluation note Diagnosis Screening, , for anatomic survey ([facility])- Primary Encounter for anatomic survey 12 weeks gestation of ([facility]) First trimester ([facility]) state, incidental Subchorionic hemorrhage of placenta in first trimester ([facility]) documented in this encounter [facility] Summary Purpose Family History No Family History Records Found Relationship Condition Age at Onset Recorded Date/T pj mother Heart disease Unknown Advance Directives No Advanced Directives Records Found Advance Directive Response Recorded Date/ Time Advance Directives No March 07 3:28pm Chief Complaint and Reason for Visit Chief Complaint Rash on face Chief Complaint Rash on face Rash on upper lip Reason for Visit Contact dermatitis Additional Source Comments INFORMATION SOURCE (unrecogn ized section and content) DATE CREATED AUTHOR 12/12/2022 [facility] DATE CREATED AUTHOR AUTHOR'S ORGANIZ ATION 04/06/2024 Loki Alberto [facility] DATE CREATED AUTHOR AUTHOR'S ORGANIZ ATION 05/10/2025 [facility] DATE CREATED AUTHOR AUTHOR'S ORGANIZ ATION 05/25/2025 [facility] [employer] Care Teams (unrecognized sec tion and content) [...] may be documented in an alternate section Reason for Visit (unrecogniz ed section and content) Reason Comments Well Women Visit Reason Comments Pre-op Visit Reason Comments Amenorrhea Reason Comments Routine Visit FOR RECORDS PERTAINING TO PATIENTS WHO ARE [...] BE BASED ON THE PRIMARY CLINICAL RECORDS. [facility] [employer] provides no warranty or guarantee of the accuracy or completeness of information in this document.
[2025-06-06 17:09] LABS: Age Gdln ACOG Testing Note (.); IGP, Aptima HPV, rfx 16/18,45 Note (.)
== END 2025-06-03 15:15 | disposition home or self-care (01) ==
LOC: LAB 15:14
PROVIDERS: Visit Provider Obstetrics & Gynecology
DX: Z01.419 Encounter for gynecological examination (general) (routine) without abnormal findings (principal)
CPT/HCPCS: 87624; 88175